=== PATIENT | female | born 1965 | race Caucasian/White ===

== ENCOUNTER 2023-05-12 18:50 | Inpatient (IN) | payer OTHER, SELFPAY ==
--- NOTE | ~2023-05-12 | CT_ITS ---
EXAMINATION: CT ABDOMEN AND PELVIS WITH CONTRAST CLINICAL INFORMATION: Colitis. COMPARISON: None available. TECHNIQUE: Multidetector volumetric images were obtained from the superior aspect of the liver through the pubic symphysis following administration 85 mL of Omnipaque 350 intravenous contrast. Sagittal and coronal reformatted images were obtained on the technologist's workstation. Oral contrast: No This CT examination was performed using dose optimization techniques as appropriate, variously including the following: *Automated exposure control *Adjustment of mA and/or kV according to patient size (this includes techniques or standardized protocols for targeted exams where dose is matched to indication/reason for exam; i.e. extremities or head) *Use of iterative reconstruction technique DLP: 552 mGy-cm FINDINGS: LUNG BASES: There is bibasilar atelectasis or scarring. Heart size is normal. LIVER, GALLBLADDER, AND BILIARY TREE: The liver is normal in size, shape, and attenuation. No focal hepatic lesion or biliary ductal dilatation is present. The gallbladder is unremarkable with no evidence of radiopaque gallstones, gallbladder wall thickening, or obvious pericholecystic inflammatory changes. PANCREAS: Unremarkable. SPLEEN: Unremarkable. ADRENAL GLANDS: Unremarkable. KIDNEYS AND URETERS: The kidneys are normal in size, shape, and attenuation. No hydronephrosis, hydroureter, or calculi seen. No perinephric stranding. BLADDER: Unremarkable. GASTROINTESTINAL TRACT: There is diffuse mural thickening involving the entire sigmoid, distal descending colon and rectum without pericolic fat stranding. Oral contrast opacified the rest of the colon and the small bowel loops appear normal caliber. Appendix is normal caliber. ABDOMINAL WALL: No significant hernia is appreciated. LYMPH NODES: Normal. VASCULAR: There is mild atherosclerotic calcification of abdominal aorta without aneurysmal dilatation. The aortic arch branches are widely patent.. PELVIC VISCERA: Unremarkable. OSSEOUS STRUCTURES: Unremarkable. CT/CT abdomen pelvis w IV con IMPRESSION: Diffuse mural thickening involving distal descending, sigmoid colon and the rectum suggestive of colitis. Fleischner guidelines were followed.
--- NOTE | ~2023-05-12 | CT_ITS ---
EXAMINATION: CT ABDOMEN AND PELVIS WITH CONTRAST CLINICAL INFORMATION: ABD pain N/V bright red blood COMPARISON: None available. TECHNIQUE: Multidetector volumetric imaging was performed of the abdomen and pelvis after the IV administration of 85 mL of Omnipaque 350 intravenous contrast. Imaging repeated after [address] abdomen and pelvis. Sagittal and coronal reformatted images were obtained on the technologist's workstation. This CT examination was performed using dose optimization techniques as appropriate, variously including the following: *Automated exposure control *Adjustment of mA and/or kV according to patient size (this includes techniques or standardized protocols for targeted exams where dose is matched to indication/reason for exam; i.e. extremities or head) *Use of iterative reconstruction technique DLP: 1019 mGy-cm FINDINGS: LUNG BASES: The visualized lung bases are unremarkable. LIVER, GALLBLADDER, AND BILIARY TREE: The liver is normal in size, shape, and attenuation. No focal hepatic lesion or biliary ductal dilatation is present. Gallbladder not visualized. No bile duct dilatation. PANCREAS: Unremarkable SPLEEN: Unremarkable ADRENAL GLANDS: Unremarkable KIDNEYS AND URETERS: The kidneys are normal in size, shape, and attenuation. No hydronephrosis, hydroureter, or calculi seen. No perinephric stranding. BLADDER: Unremarkable GASTROINTESTINAL TRACT: There is submucosal thickening throughout the colon. This is most significant at rectosigmoid colon. These are nonspecific colitis. No edema around the colon. No bowel obstruction. Small volume of stool in right colon. The appendix is normal. Small bowel loops are normal. Stomach is normal. No hiatal hernia. No extravasation of contrast evident into the bowel lumen to indicate location of a gastrointestinal hemorrhage. ABDOMINAL WALL: No significant hernia is appreciated. LYMPH NODES: Normal VASCULAR: Atherosclerotic vascular calcifications of aorta and iliac arteries. There is no aneurysm. PELVIC VISCERA: Status post hysterectomy. OSSEOUS STRUCTURES: Unremarkable CT/CT gi bleed abd pel wo/w IVcon IMPRESSION: Diffuse submucosal thickening of the colon consistent with nonspecific colitis. Side of the gastrointestinal hemorrhage is not defined by this exam. Fleischner guidelines were followed.
[2023-05-12 19:31] VITALS: BP 149/82; PULSE 118; RESP 18; TEMP 36.9; O2SAT 98; BMI 26.5
--- NOTE | 2023-05-12 19:31 | ED_ITS ---
HPI - General Adult General Chief complaint: Abdominal Pain Stated complaint: vomiting,bloody stools Time Seen by Provider: 05/12/23 21:18 Source: patient Mode of arrival: ambulatory Limitations: no limitations History of Present Illness HPI narrative: Patient is a 57-year-old female who presents emergency department for diffuse lower abdominal pain, nausea with bilious vomiting times multiple episodes today, in addition to bright red blood per rectum with clots, chills. Denies any history of rectal bleeding. Denies eating out at any restaurants or any abnormal foods. Denies any known sick contacts. Denies fevers, dizziness, headache, neck pain, chest pain, shortness of breath, dysuria. Related Data Home Medications Medication Instructions Recorded Confirmed albuterol sulfate 90 mcg/actuation 2 puff inhalation QID PRN Wheezing 05/13/23 05/13/23 aerosol inhaler aspirin 81 mg tablet,delayed 81 mg PO DAILY 05/13/23 05/13/23 release atorvastatin 10 mg tablet 10 mg PO BEDTIME 05/13/23 05/13/23 empagliflozin 25 mg tablet 25 mg PO DAILY 05/13/23 05/13/23 (Jardiance) estradiol 1 mg tablet 1 mg PO BID 05/13/23 05/13/23 gabapentin 300 mg capsule 300 mg PO TID 05/13/23 05/13/23 insulin glargine 100 40 unit subcut DAILY 05/13/23 05/13/23 unit-lixisenatide 33 mcg/mL subcutaneous pen (Soliqua 100/33) levothyroxine 112 mcg tablet 112 mcg PO DAILY 05/13/23 05/13/23 multivitamin 1 tab PO DAILY 05/13/23 05/13/23 omeprazole 40 mg capsule,delayed 40 mg PO DAILY 05/13/23 05/13/23 release Allergies Allergy/AdvReac Type Severity Reaction Status Date / Time acetaminophen [From PERCOCET] Allergy Severe VOMITING Verified 05/12/23 19:36 codeine [Codeine] Allergy Mild HYPERVENTIL Verified 05/12/23 19:36 ATE meperidine [From Demerol] Allergy Mild VOMITING Verified 05/12/23 19:36 AND FEVER morphine [Morphine] Allergy Mild VOMITING,DE Verified 05/12/23 19:36 LUSSONAL lisinopril Allergy Dizziness Verified 05/12/23 19:36 oxycodone [OXYCODONE] AdvReac Mild NAUSEA & Verified 05/12/23 19:36 VOMITING From PERCOCET Allergy Severe VOMITING Uncoded 05/25/20 14:37 Percodan Allergy Unknown Vomiting Uncoded 05/12/23 19:36 Review of Systems 2 Review of Systems: Constitutional : No Weight loss, No Fever, positive Chills ENT/Mouth :? No sore throat, No Rhinorrhea Eyes: No Swelling, No Redness Cardiovascular : No Chest Pain, No SOB, No Edema Respiratory : No Cough, No Sputum, No Wheezing Gastrointestinal : Positive Nausea, Positive Vomiting, positive Diarrhea, positive abdominal pain, positive Hematochezia, No Melena Genitourinary : No Dysuria, No Urinary Frequency, No Hematuria, No Urgency? Musculoskeletal : No joint pain, No Myalgias, No Joint Swelling Skin : No Skin Lesions, No rash Neuro : No Weakness, No Numbness, No Dizziness, No Headache Psych : No Anxiety/Panic, No Depression Heme/Lymph: No Bruising, No Lymphadenopathy Endocrine : No Polyuria, No Polydipsia Yes all other systems are reviewed and are negative [facility] Past Medical History Attestation statement: The following information was validated with the patient. Source: old records reviewed Medical History Hypothyroidism Social History Social History Household Members: Spouse Housing: Apartment Do you presently have visiting nurse or other home services: No Alcohol intake: never Patient Tobacco Use Status: Former Tobacco user service: No Physical Exam ED Vital Signs: Vital Signs - 24 hr 05/12/23 19:31 05/12/23 21:19 Temperature 98.4 F 98.4 F Pulse Rate 118 H 115 H Respiratory Rate 18 20 Blood Pressure 149/82 H 136/73 Pulse Oximetry 98 96 Oxygen Delivery Method Room Air Room Air BMI result Body Mass Index 26.5 Appearance: Alert.?Oriented to person, place and time. No acute distress.?Normal affect. Eyes: Pupils equal, round and reactive to light.? ENT: Pharynx normal.?? Neck: Normal inspection.? Neck supple.?? CVS: Heart sounds normal. Normal heart rate and rhythm.? Pulses normal.?? Respiratory: No respiratory distress.? Lung sounds clear to auscultation bilaterally?? Abdomen: Soft with diffuse lower abdominal tenderness upon palpation, no rebound tenderness, no rigidity, no guarding. Hypoactive bowel sounds. No pulsatile mass.?? Skin: Skin warm and dry.? Normal skin color.? Extremities: No lower extremity edema.? Neuro: Moves all extremities spontaneously. Sensation intact bilaterally. CN II- XII intact. No focal neuro deficits. Ambulates with normal steady gait. Course Course Course Narrative: This is a rapid medical exam: Additional HPI, ROS, PE not included below will be deferred to primary provider. Patient is a 57-year-old female with history of T2DM, HTN, gastritis, H. pylori, hepatic steatosis, tubular adenoma presenting to the emergency department with complaint of bright red blood clots rectally as well as vomiting. Denies hematemesis. States felt fine upon waking this morning, symptoms began around 10 am. Reports pain to entire abdomen, states it feels like I'm in labor. Denies prior similar episodes. Denies fevers. Did not take any medications today due to vomiting. Denies any urinary symptoms. Plan: labs including type and screen, Reevaluation(s) Reevaluation #1: Occult stool is positive. CT revealing a colitis without identified site of gastrointestinal hemorrhage. Infection suspected, ordered Levaquin and Flagyl IV. She remains with significant ABD pain, unable to tolerate oral intake, tachycardic, will trial additional dose of fentanyl at this time. She reports that she had a colonoscopy/endoscopy 2-3 years ago which only detected H pylori and polyps. She states that her cousin was just diagnosed with ulcerative colitis 6 months ago. Accepted for admission to medicine service, Dr. Matthew Time: 00:40 Medications Administered Generic Name Dose Route Start Last Admin Trade Name Freq PRN Reason Stop Dose Admin Atorvastatin Calcium 10 mg 05/13/23 21:00 05/13/23 19:57 Atorvastatin Calcium 10 Mg Tablet PO 10 mg BEDTIME ABHAY Administration Empagliflozin 25 mg 05/13/23 11:30 05/13/23 12:08 Empagliflozin 25 Mg Tablet PO 25 mg DAILY ABHAY Administration Gabapentin 300 mg 05/13/23 15:00 05/13/23 19:57 Gabapentin 300 Mg Capsule PO 300 mg TID ABHAY Administration Hydromorphone HCl 0.25 mg 05/13/23 01:48 05/14/23 01:18 Hydromorphone Hcl 0.5 Mg/0.5 Ml Syringe IVPUSH 0.25 mg Q4H PRN Administration Pain, Severe (Pain Scale 7-10) Protocol Sodium Chloride 1,000 mls @ 125 mls/hr 05/13/23 01:45 05/14/23 01:30 Ns IVCONT Not Given .Q8H ABHAY Metronidazole 500 mg in 100 mls @ 100 mls/hr 05/13/23 08:00 05/14/23 01:27 Flagyl IV Infused Q8H [facility] Infusion Ceftriaxone Sodium 1 gm/ 50 mls @ 100 mls/hr 05/13/23 02:00 05/14/23 00:16 Sodium Chloride IV Infused 2200 [facility] Infusion Insulin Human Lispro 0 unit 05/13/23 16:30 05/13/23 21:49 Insulin Lispro 100 Unit/Ml 3 Ml Vial SUBCUT 2 unit QIDACHS [facility] Administration Protocol Omeprazole 40 mg 05/13/23 11:30 05/13/23 12:08 Omeprazole 40 Mg Capsule. PO 40 mg DAILY@0630 [facility] Administration Ondansetron HCl 4 mg 05/13/23 01:43 05/13/23 18:50 Ondansetron Hcl 4 Mg/2 Ml Vial IVPUSH 4 mg Q8H PRN Administration Nausea and Vomiting Sodium Chloride 3 ml 05/13/23 08:00 05/13/23 21:54 0.9 % Sodium Chloride Flush 3 Ml Syringe IVFLUSH 3 ml QSHIFT [facility] Administration Discontinued Medications Generic Name Dose Route Start Last Admin Trade Name Freq PRN Reason Stop Dose Admin Fentanyl 50 mcg 05/12/23 21:59 05/12/23 22:24 Fentanyl Citrate/Pf 100 Mcg/2 Ml Vial IVPUSH 05/12/23 22:00 50 mcg ONCE ONE Administration Protocol Fentanyl 50 mcg 05/13/23 00:49 05/13/23 00:59 Fentanyl Citrate/Pf 100 Mcg/2 Ml Vial IVPUSH 05/13/23 00:50 50 mcg ONCE ONE Administration Protocol Sodium Chloride 1,000 mls @ 999 mls/hr 05/12/23 22:00 05/12/23 23:50 Ns IV 05/12/23 23:00 Infused .Q1H1M ABHAY Infusion Levofloxacin 750 mg in 150 mls @ 100 mls/hr 05/13/23 01:01 05/13/23 04:15 Levaquin IV 05/13/23 02:30 Infused ONCE ONE Infusion Metronidazole 500 mg in 100 mls @ 100 mls/hr 05/13/23 01:01 05/13/23 02:41 Flagyl IV 05/13/23 02:00 Infused ONCE ONE Infusion Sodium Chloride 1,000 mls @ 999 mls/hr 05/13/23 01:45 05/13/23 05:46 Ns IV 05/13/23 02:45 Infused .Q1H1M ABHAY Infusion Promethazine HCl 6.25 mg/ 50.25 mls @ 201 mls/hr 05/13/23 04:45 05/13/23 05:32 Sodium Chloride IV 05/13/23 04:46 Infused ONCE ONE Infusion Iohexol 85 ml 05/12/23 23:23 05/12/23 23:24 Iohexol 350 Mg/Ml 100 Ml Infus..Btl IV 05/12/23 23:24 85 ml ONCE ONE Administration Ondansetron HCl 4 mg 05/12/23 21:57 05/12/23 22:24 Ondansetron Hcl 4 Mg/2 Ml Vial IVPUSH 05/12/23 21:58 4 mg ONCE ONE Administration Medical Decision Making Medical Decision Making [facility] Narrative: Patient is a 57-year-old female with hx of T2DM, HTN, gastritis, H. pylori, hepatic steatosis, tubular adenoma who presents emergency department for evaluation of abdominal pain with nausea vomiting and bright red blood per rectum. She has notable tenderness upon palpation of the lower abdomen, she is tachycardic, and appears fatigued. Will obtain CBC to evaluate for leukocytosis/ anemia, CMP and lipase to evaluate for abnormal electrolytes /abnormal renal function/ abnormal hepatic/biliary function, EKG and troponin to evaluate for ischemia/ACS. CT of the abdomen and pelvis for further evaluation of GI bleed, diverticulitis, colitis, occult stool and Urinalysis. Rectal examination reveals an external hemorrhoid though not actively bleeding, no fissures. Will trial 1 L normal saline IV, Zofran IV for nausea, fentanyl IV for pain. Differential Diagnosis Differential Diagnoses: The differential diagnosis associated with the presentation includes (GI bleed, diverticulitis, colitis, gastroenteritis,) Lab Data [facility] Lab Attestation statement: I reviewed the patient's lab results. (CBC reveals leukocytosis with left shift, overall unremarkable CMP, lipase within normal limits, hCG negative.) 05/12/23 19:49 05/12/23 19:49 Labs: Lab Results 05/12/23 05/12/23 05/12/23 Range/Units 19:49 19:49 19:49 WBC 14.6 H (4.8-10.8) X10*3/uL RBC 4.94 (4.20-5.50) X10*6/uL Hgb 16.8 H (12.0-16.0) g/dl Hct 48.7 H (37.0-47.0) % MCV 98.6 H (80.0-98.0) fL MCH 34.0 H (27.0-33.0) pg MCHC 34.5 (31.0-35.0) g/dl RDW 12.4 (11.0-16.0) % Plt Count 232 (160-400) X10*3/uL MPV 10.9 (9.4-12.3) fL Immature Gran % (Auto) 0.9 H (0.0-0.4) % Neut % (Auto) 91.5 H (45-73) % Lymph % (Auto) 4.9 L (20-40) % Antelope % (Auto) 2.5 (2-11) % Eos % (Auto) 0.0 (0-4) % Baso % (Auto) 0.2 (0-2) % Lymph # (Auto) 0.7 L (1.2-4.9) X10*3/uL Antelope # (Auto) 0.4 (0.1-1.2) X10*3/uL Eos # (Auto) 0.0 (0.0-0.4) X10*3/uL Baso # (Auto) 0.0 (0.0-0.2) X10*3/uL Abs Immat Gran (auto) 0.13 H (0.00-0.03) X10*3/uL Absolute Neuts (auto) 13.3 H (2.0-8.3) x10*3/uL Absolute Nucleated RBC 0.000 (0.0-0.012) X10*3/uL Nucleated RBC % (auto) 0.0 (0.0-0.2) /100WBC Smear Tech's Comments VERIFIED ESR (0-20) MM/HR PT 10.7 L (11.1-13.3) SEC INR 0.9 (0.9-1.1) Sodium 139 (135-145) mmol/L Potassium 4.8 (3.3-5.1) mmol/L Chloride 104 (96-108) mmol/L Carbon Dioxide 23 (22-29) mmol/L Anion Gap 17 (12-20) BUN 18 H (9-16) mg/dL Creatinine 0.88 (0.5-1.4) mg/dL Estim Creat Clear Calc 62.7 Estimated GFR > 60 Random Glucose 239 H (60-115) mg/dL Calcium 10.0 (8.4-10.2) mg/dL Total Bilirubin 1.1 H (0.0-1.0) mg/dL AST 21 (5-31) U/L ALT 27 (0-31) U/L Alkaline Phosphatase 61 (39-117) U/L C-Reactive Protein 0.91 H (< or = 0.50) mg/dL Total Protein 7.8 (6.5-8.0) g/dL Albumin 4.7 (3.5-5.0) g/dL Lipase 8 (8-78) U/L Beta HCG, Quant < 2 mIU/mL Stool Occult Blood (NEGATIVE) Stl C. cayetanensis PCR (Not Detect.) Stool Rotavirus A PCR (Not Detect.) Stl Adenov F 40/41 PCR (Not Detect.) Stool Astrovirus (PCR) (Not Detect.) Stool Campylobacter PCR (Not Detect.) Stool Cryptosporidium PCR (Not Detect.) Stl Sh Tox Pr E STEC PCR (Not Detect.) Stool E coli O157 PCR (Not Detect.) Stl Enterotoxigenic E PCR (Not Detect.) Stool EPEC (PCR) (Not Detect.) Stool EAEC (PCR) (Not Detect.) Stl E. histolytica PCR (Not Detect.) Stool Giardia Lamblia PCR (Not Detect.) Stl P. shigelloides PCR (Not Detect.) Stool Salmonella PCR (Not Detect.) Stool Sapovirus (PCR) (Not Detect.) Stl Shigella/EIEC PCR (Not Detect.) St Y.enterocolitica PCR (Not Detect.) Stool Vibrio (PCR) (Not Detect.) Stl Vibrio cholerae PCR (Not Detect.) Stl Norovirus GI/GII PCR (Not Detect.) Blood Type Antibody Screen 05/12/23 05/12/23 05/12/23 Range/Units 19:49 19:49 21:59 WBC (4.8-10.8) X10*3/uL RBC (4.20-5.50) X10*6/uL Hgb (12.0-16.0) g/dl Hct (37.0-47.0) % MCV (80.0-98.0) fL MCH (27.0-33.0) pg MCHC (31.0-35.0) g/dl RDW (11.0-16.0) % Plt Count (160-400) X10*3/uL MPV (9.4-12.3) fL Immature Gran % (Auto) (0.0-0.4) % Neut % (Auto) (45-73) % Lymph % (Auto) (20-40) % Antelope % (Auto) (2-11) % Eos % (Auto) (0-4) % Baso % (Auto) (0-2) % Lymph # (Auto) (1.2-4.9) X10*3/uL Antelope # (Auto) (0.1-1.2) X10*3/uL Eos # (Auto) (0.0-0.4) X10*3/uL Baso # (Auto) (0.0-0.2) X10*3/uL Abs Immat Gran (auto) (0.00-0.03) X10*3/uL Absolute Neuts (auto) (2.0-8.3) x10*3/uL Absolute Nucleated RBC (0.0-0.012) X10*3/uL Nucleated RBC % (auto) (0.0-0.2) /100WBC Smear Tech's Comments ESR 4 (0-20) MM/HR PT (11.1-13.3) SEC INR (0.9-1.1) Sodium (135-145) mmol/L Potassium (3.3-5.1) mmol/L Chloride (96-108) mmol/L Carbon Dioxide (22-29) mmol/L Anion Gap (12-20) BUN (9-16) mg/dL Creatinine (0.5-1.4) mg/dL Estim Creat Clear Calc Estimated GFR Random Glucose (60-115) mg/dL Calcium (8.4-10.2) mg/dL Total Bilirubin (0.0-1.0) mg/dL AST (5-31) U/L ALT (0-31) U/L Alkaline Phosphatase (39-117) U/L C-Reactive Protein (< or = 0.50) mg/dL Total Protein (6.5-8.0) g/dL Albumin (3.5-5.0) g/dL Lipase (8-78) U/L Beta HCG, Quant mIU/mL Stool Occult Blood POSITIVE (NEGATIVE) Stl C. cayetanensis PCR (Not Detect.) Stool Rotavirus A PCR (Not Detect.) Stl Adenov F 40/41 PCR (Not Detect.) Stool Astrovirus (PCR) (Not Detect.) Stool Campylobacter PCR (Not Detect.) Stool Cryptosporidium PCR (Not Detect.) Stl Sh Tox Pr E STEC PCR (Not Detect.) Stool E coli O157 PCR (Not Detect.) Stl Enterotoxigenic E PCR (Not Detect.) Stool EPEC (PCR) (Not Detect.) Stool EAEC (PCR) (Not Detect.) Stl E. histolytica PCR (Not Detect.) Stool Giardia Lamblia PCR (Not Detect.) Stl P. shigelloides PCR (Not Detect.) Stool Salmonella PCR (Not Detect.) Stool Sapovirus (PCR) (Not Detect.) Stl Shigella/EIEC PCR (Not Detect.) St Y.enterocolitica PCR (Not Detect.) Stool Vibrio (PCR) (Not Detect.) Stl Vibrio cholerae PCR (Not Detect.) Stl Norovirus GI/GII PCR (Not Detect.) Blood Type O Positive Antibody Screen NEGATIVE 05/12/23 Range/Units 21:59 WBC (4.8-10.8) X10*3/uL RBC (4.20-5.50) X10*6/uL Hgb (12.0-16.0) g/dl Hct (37.0-47.0) % MCV (80.0-98.0) fL MCH (27.0-33.0) pg MCHC (31.0-35.0) g/dl RDW (11.0-16.0) % Plt Count (160-400) X10*3/uL MPV (9.4-12.3) fL Immature Gran % (Auto) (0.0-0.4) % Neut % (Auto) (45-73) % Lymph % (Auto) (20-40) % Antelope % (Auto) (2-11) % Eos % (Auto) (0-4) % Baso % (Auto) (0-2) % Lymph # (Auto) (1.2-4.9) X10*3/uL Antelope # (Auto) (0.1-1.2) X10*3/uL Eos # (Auto) (0.0-0.4) X10*3/uL Baso # (Auto) (0.0-0.2) X10*3/uL Abs Immat Gran (auto) (0.00-0.03) X10*3/uL Absolute Neuts (auto) (2.0-8.3) x10*3/uL Absolute Nucleated RBC (0.0-0.012) X10*3/uL Nucleated RBC % (auto) (0.0-0.2) /100WBC Smear Tech's Comments ESR (0-20) MM/HR PT (11.1-13.3) SEC INR (0.9-1.1) Sodium (135-145) mmol/L Potassium (3.3-5.1) mmol/L Chloride (96-108) mmol/L Carbon Dioxide (22-29) mmol/L Anion Gap (12-20) BUN (9-16) mg/dL Creatinine (0.5-1.4) mg/dL Estim Creat Clear Calc Estimated GFR Random Glucose (60-115) mg/dL Calcium (8.4-10.2) mg/dL Total Bilirubin (0.0-1.0) mg/dL AST (5-31) U/L ALT (0-31) U/L Alkaline Phosphatase (39-117) U/L C-Reactive Protein (< or = 0.50) mg/dL Total Protein (6.5-8.0) g/dL Albumin (3.5-5.0) g/dL Lipase (8-78) U/L Beta HCG, Quant mIU/mL Stool Occult Blood (NEGATIVE) Stl C. cayetanensis PCR Not Detected (Not Detect.) Stool Rotavirus A PCR Not Detected (Not Detect.) Stl Adenov F 40/41 PCR Not Detected (Not Detect.) Stool Astrovirus (PCR) Not Detected (Not Detect.) Stool Campylobacter PCR Not Detected (Not Detect.) Stool Cryptosporidium PCR Not Detected (Not Detect.) Stl Sh Tox Pr E STEC PCR Not Detected (Not Detect.) Stool E coli O157 PCR Not applicable (Not Detect.) Stl Enterotoxigenic E PCR Not Detected (Not Detect.) Stool EPEC (PCR) Detected A (Not Detect.) Stool EAEC (PCR) Not Detected (Not Detect.) Stl E. histolytica PCR Not Detected (Not Detect.) Stool Giardia Lamblia PCR Not Detected (Not Detect.) Stl P. shigelloides PCR Not Detected (Not Detect.) Stool Salmonella PCR Not Detected (Not Detect.) Stool Sapovirus (PCR) Not Detected (Not Detect.) Stl Shigella/EIEC PCR Not Detected (Not Detect.) St Y.enterocolitica PCR Not Detected (Not Detect.) Stool Vibrio (PCR) Not Detected (Not Detect.) Stl Vibrio cholerae PCR Not Detected (Not Detect.) Stl Norovirus GI/GII PCR Not Detected (Not Detect.) Blood Type Antibody Screen Independent Interpretation I performed an independent interpretation of an: EKG Interpretation: Rate: 103 Rhythm:? Sinus tachycardia Normal P waves.? Normal LAURA.?? Normal QRS complex.?? ST T wave :??No ST elevation, no ST depression, no T-wave inversion qTC: 484 prior studies:? January 2011 The study has been interpreted contemporaneously by me. Radiology Impression Discussion of test interpretation with radiology: I have reviewed the radiologist's reading. Discharge Plan Discharge Clinical Impression: Acute colitis, GIB (gastrointestinal bleeding) Patient Disposition: Admitted As Inpatient Interventions: Admission Worksheet (ED) Last Done: 05/13/23 18:18 Discharge Date/Time: 05/13/23 18:20
--- NOTE | 2023-05-12 19:38 | ECG_ITS ---
Test Reason : tachy Blood Pressure : / mmHG Vent. Rate : 103 BPM Atrial Rate : 103 BPM P-R Int : 150 ms QRS Dur : 084 ms QT Int : 370 ms P-R-T Axes : 077 005 053 degrees QTc Int : 484 ms Sinus tachycardia Otherwise normal ECG When compared with ECG of 23-JAN-2011 17:38, Heart rate has increased Referred By: Krystin Beatty Electronically Signed By:AUGUSTO DELUCA
[2023-05-12 19:57] LABS: Basophils Percent Auto 0.2 % (0-2); Hematocrit 48.7 % (37.0-47.0); Hemoglobin 16.8 g/dl (12.0-16.0); Imm Gran Abs Auto 0.13 X10*3/uL (0.00-0.03); Imm Gran Pct Auto 0.9 % (0.0-0.4); Lymphocytes Absolute Auto 0.7 X10*3/uL (1.2-4.9); Lymphocytes Percent Auto 4.9 % (20-40); MANUAL DIFF FLAG SCAN; Mean Corpuscular HGB Conc 34.5 g/dl (31.0-35.0); Mean Corpuscular Volume 98.6 fL (80.0-98.0); Mean Platelet Volume 10.9 fL (9.4-12.3); Monocytes Absolute Auto 0.4 X10*3/uL (0.1-1.2); Monocytes Percent Auto 2.5 % (2-11); Neutrophils Absolute Auto 13.3 x10*3/uL (2.0-8.3); Neutrophils Percent Auto 91.5 % (45-73); Platelet Count 232 X10*3/uL (160-400); Red Blood Count 4.94 X10*6/uL (4.20-5.50); Red Cell Distribution Width 12.4 % (11.0-16.0); SCAN SMEAR FLAG 1; White Blood Count 14.6 X10*3/uL (4.8-10.8)
[2023-05-12 20:04] LABS: INTERNATIONAL NORM RATIO 0.9 (0.9-1.1); Prothrombin Time 10.7 SEC (11.1-13.3)
[2023-05-12 20:17] LABS: Alanine Aminotransferase 27 U/L (0-31); Albumin Level 4.7 g/dL (3.5-5.0); Alkaline Phosphatase 61 U/L (39-117); Anion Gap 17 (12-20); Aspartate Amino Transferase 21 U/L (5-31); Bilirubin Total 1.1 mg/dL (0.0-1.0); Blood Urea Nitrogen 18 mg/dL (9-16); Carbon Dioxide 23 mmol/L (22-29); Chloride 104 mmol/L (96-108); Creatinine Clr Calc Pharmacy 62.7; Estimated Glomerular Filt Rate > 60; Glucose Random 239 mg/dL (60-115); Lipase 8 U/L (8-78); Potassium 4.8 mmol/L (3.3-5.1); Sodium 139 mmol/L (135-145); Total Protein 7.8 g/dL (6.5-8.0)
[2023-05-12 20:19] LABS: HCG Quantitative < 2 mIU/mL
[2023-05-12 20:32] LABS: SLIDE REVIEW VERIFIED
[2023-05-12 21:19] VITALS: BP 136/73; PULSE 115; RESP 20; TEMP 36.9; O2SAT 96
[2023-05-12 22:12] LABS: OBS Int Ctl Valid YES; OBS1 POSITIVE (NEGATIVE)
[2023-05-12] MEDS: ondansetron HCL 4 MG/2 ML VIAL IVPUSH (22:24)
[2023-05-12] MEDS: fentaNYL citrate/PF 100 MCG/2 ML VIAL 50 MCG IVPUSH (22:24)
[2023-05-12] MEDS: 0.9 % Sodium Chloride 1,000 ML 999 ML IV (22:27)
[2023-05-12] MEDS: iohexoL 350 MG/ML 100 ML INFUS..BTL 85 ML IV (23:24)
[2023-05-13] MEDS: fentaNYL citrate/PF 100 MCG/2 ML VIAL 50 MCG IVPUSH (00:59)
[2023-05-13] MEDS: metroNIDAZOLE/NS 500 MG/100 ML PIGGYBACK 100 MG IV ×3 (01:36→16:34)
[2023-05-13 01:45] LABS: C Reactive Protein 0.91 mg/dL (< or = 0.50)
[2023-05-13 02:06] LABS: Erythrocyte Sedimentation Rate 4 MM/HR (0-20)
--- NOTE | 2023-05-13 02:18 | P.HPHOSP_ITS ---
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 The patient reports feeling well this morning as she woke up and had coffee before going to the bathroom for BM but she did not leave for couple of hours as she had multiple soft bowel movements associated with abdominal pain at the end, chills and nausea. She vomited few times but manily has nausea. in the afternoon she noticed blood with the stool (she was not looking before) so she decided to come to the hospital. Denies any rash, fever, SOB, palpitations, chest pain or urinary symptoms. Had dinner with her last night, he has no symptoms. no food from outside or reheated meals. No Previous history of similar incidents. Her cousin (she calls her mother) has Ulcerative colitis. Her mother of liver cancer. In ED, a CT scan showed non-specific colitis with no source of bleeding identified as she is occult positive. with dehydration picture with high WBCs and RBCs. Treated with IVF and Abx and admitted for further eval. Review of Systems Review of Systems: reproting subjective fever, chills No chest pain, palpitation No shortness of breath or coughing reporting generalized abdominal pain, with nausea and bloody bowel motions No urinary symptoms No any rash or wounds PMFSH Medical History Hypothyroidism Social History Alcohol intake: never Patient Tobacco Use Status: Never used Tobacco Meds Allergies Allergy/AdvReac Type Severity Reaction Status Date / Time acetaminophen [From PERCOCET] Allergy Severe VOMITING Verified 05/12/23 19:36 codeine [Codeine] Allergy Mild HYPERVENTIL Verified 05/12/23 19:36 ATE meperidine [From Demerol] Allergy Mild VOMITING Verified 05/12/23 19:36 AND FEVER morphine [Morphine] Allergy Mild VOMITING,DE Verified 05/12/23 19:36 LUSSONAL lisinopril Allergy Dizziness Verified 05/12/23 19:36 oxycodone [OXYCODONE] AdvReac Mild NAUSEA & Verified 05/12/23 19:36 VOMITING From PERCOCET Allergy Severe VOMITING Uncoded 05/25/20 14:37 Percodan Allergy Unknown Vomiting Uncoded 05/12/23 19:36 Active Medications: Current Medications Hydromorphone HCl (Hydromorphone Hcl 0.5 Mg/0.5 Ml Syringe) 0.25 mg IVPUSH Q4H PRN; Protocol PRN Reason: Pain, Severe (Pain Scale 7-10) Levofloxacin (Levaquin) 750 mg in 150 mls @ 100 mls/hr IV ONCE ONE Stop: 05/13/23 02:30 Sodium Chloride (Ns) 1,000 mls @ 999 mls/hr IV .Q1H1M ABHAY Stop: 05/13/23 02:45 Sodium Chloride (Ns) 1,000 mls @ 125 mls/hr IVCONT .Q8H [facility] Metronidazole (Flagyl) 500 mg in 100 mls @ 100 mls/hr IV Q8H [facility] Ceftriaxone Sodium 1 gm/ (Sodium Chloride) 50 mls @ 100 mls/hr IV 2200 ABHAY Ondansetron HCl (Ondansetron Hcl 4 Mg/2 Ml Vial) 4 mg IVPUSH Q8H PRN PRN Reason: Nausea and Vomiting Sodium Chloride (0.9 % Sodium Chloride Flush 3 Ml Syringe) 3 ml IVFLUSH QSHIFT ABHAY Physical Exam Vital Signs and Narrative: Vital Signs: Last Vital Signs Temp 98.4 F 05/12/23 21:19 Pulse 115 H 05/12/23 21:19 Resp 20 05/12/23 21:19 BP 136/73 05/12/23 21:19 Pulse Ox 96 05/12/23 21:19 O2 Del Method Room Air 05/12/23 21:19 BMI result Body Mass Index 26.5 Const: Other: Constitutional : Awake, interactive, not in distress Neck : Normal inspection, Supple Cardiovascular : RRR, no JVP, no lower extremity edema Respiratory : good bilateral air entry, no crackles, wheezes or rhonchi Gastrointestinal: soft, lax, Normal bowel sounds, generalized tenderness with palpation, no surgical signs appreciated Skin : Warm, Dry Neurological : Alert & oriented x3, No focal deficit Results Labs 05/12/23 19:49 05/12/23 19:49 Labs: Laboratory Results - last 24 hr 05/12/23 05/12/23 05/12/23 19:49 19:49 19:49 MCV 98.6 H MCH 34.0 H MCHC 34.5 RDW 12.4 Plt Count 232 MPV 10.9 Immature Gran % (Auto) 0.9 H Neut % (Auto) 91.5 H Lymph % (Auto) 4.9 L [place] % (Auto) 2.5 Eos % (Auto) 0.0 Baso % (Auto) 0.2 Lymph # (Auto) 0.7 L [place] # (Auto) 0.4 Eos # (Auto) 0.0 Baso # (Auto) 0.0 Abs Immat Gran (auto) 0.13 H Absolute Neuts (auto) 13.3 H Absolute Nucleated RBC 0.000 Nucleated RBC % (auto) 0.0 Smear Tech's Comments VERIFIED ESR PT 10.7 L INR 0.9 Anion Gap 17 Estim Creat Clear Calc 62.7 Estimated GFR > 60 Random Glucose 239 H Calcium 10.0 Total Bilirubin 1.1 H AST 21 ALT 27 Alkaline Phosphatase 61 C-Reactive Protein 0.91 H Total Protein 7.8 Albumin 4.7 Lipase 8 Beta HCG, Quant < 2 Stool Occult Blood Blood Type Antibody Screen 05/12/23 05/12/23 05/12/23 19:49 19:49 21:59 MCV MCH MCHC RDW Plt Count MPV Immature Gran % (Auto) Neut % (Auto) Lymph % (Auto) [place] % (Auto) Eos % (Auto) Baso % (Auto) Lymph # (Auto) [place] # (Auto) Eos # (Auto) Baso # (Auto) Abs Immat Gran (auto) Absolute Neuts (auto) Absolute Nucleated RBC Nucleated RBC % (auto) Smear Tech's Comments ESR 4 PT INR Anion Gap Estim Creat Clear Calc Estimated GFR Random Glucose Calcium Total Bilirubin AST ALT Alkaline Phosphatase C-Reactive Protein Total Protein Albumin Lipase Beta HCG, Quant Stool Occult Blood POSITIVE Blood Type O Positive Antibody Screen NEGATIVE Imaging Radiologist's Impressions: Impressions Abdomen/Pelvis CT 05/12/23 23:49 IMPRESSION: Diffuse submucosal thickening of the colon consistent with nonspecific colitis. Side of the gastrointestinal hemorrhage is not defined by this exam. Fleischner guidelines were followed. 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 Sepsis 2/2 Acute colitis, infectious vs inflammatory Leukocytosis and Tachycardia w infx normal [place] CT scan showing almost pancolitis pictures, she is female in 50s which puts her at higher risk of IBD Low ESR less suggestive of IBD though Pending stool panel IVF bolus and maintenance continue Abx of Flagyl and Ceftriaxone (dc levaquin for prolonged QTc) GIB Likely 2/2 colitis GI evaluation Keep NPO and advance diet as tolerated Hypothyroidism Restart Med when confirmed Hx Diabetes type 2 Restart home meds, SSI if needed Rest of home meds pending MED REC The patient will need 2 overnight hospital stay for treatment of colitis pending specialist evaluation Time Spent With Patient Time: Total time managing care of this patient today ____ minutes. Quality Stroke Does the patient have a stroke diagnosis?: No VTE Prior VTE?: No VTE Risk Level:: Medical - moderate - high VTE Device Contraindication: N/A - Device Ordered VTE Drug Contraindication: Treatment Not Indicated
[2023-05-13] MEDS: ondansetron HCL 4 MG/2 ML VIAL IVPUSH ×3 (02:40→18:50)
[2023-05-13] MEDS: levoFLOXacin/D5W 750 MG/150 ML PIGGYBACK 100 MG IV (02:41)
[2023-05-13 04:21] VITALS: BP 144/60; PULSE 120; RESP 17; TEMP 36.9; O2SAT 98
[2023-05-13] MEDS: cefTRIAXone sodium 1 GM in 0.9 % Sodium Chloride 50 ML IV ×2 (04:39→21:50)
[2023-05-13] MEDS: 0.9 % Sodium Chloride 1,000 ML 999 ML IV (04:41)
[2023-05-13] MEDS: HYDROmorphone HCl 0.5 MG/0.5 ML SYRINGE 0.25 MG IVPUSH ×4 (05:16→18:50)
[2023-05-13 07:12] VITALS: BP 107/69; PULSE 123; RESP 18; TEMP 36.5; O2SAT 95
[2023-05-13 07:35] LABS: Anion Gap 18 (12-20); Blood Urea Nitrogen 14 mg/dL (9-16); Calcium 8.2 mg/dL (8.4-10.2); Carbon Dioxide 11 mmol/L (22-29); Chloride 113 mmol/L (96-108); Creatinine Clr Calc Pharmacy 73.6; Estimated Glomerular Filt Rate > 60; Glucose Random 212 mg/dL (60-115); Potassium 4.2 mmol/L (3.3-5.1); Sodium 138 mmol/L (135-145)
[2023-05-13] MEDS: 0.9 % Sodium Chloride Flush 3 ML SYRINGE IVFLUSH ×2 (07:49→21:54)
--- NOTE | 2023-05-13 07:51 | PC.NURSE ---
patient resting in bed, states her nausea is coming back, otherwise comfortable. patient appears to be in no distress, VSS
--- NOTE | 2023-05-13 07:51 | PHA.MEDREC ---
Pharmacy Consult ? Medication Reconciliation Pharmacy has completed the medication reconciliation. pt insulin/glp 1 combo increased to 40 u mark
[2023-05-13] MEDS: 0.9 % Sodium Chloride 1,000 ML 125 ML IVCONT ×2 (08:16→18:51)
[2023-05-13 10:14] LABS: Adenovirus F 40/41 Not Detected (Not Detect.); Astrovirus Not Detected (Not Detect.); Campylobacter Not Detected (Not Detect.); Cryptosporidium Not Detected (Not Detect.); Cyclospora cayetanensis Not Detected (Not Detect.); E. coli EAEC Not Detected (Not Detect.); E. coli EPEC Detected (Not Detect.); E. coli ETEC Not Detected (Not Detect.); E. coli STEC Not Detected (Not Detect.); Entamoeba histolytica Not Detected (Not Detect.); Giardia lamblia Not Detected (Not Detect.); Norovirus GI/GII Not Detected (Not Detect.); Plesiomonas shigelloides Not Detected (Not Detect.); Rotavirus A Not Detected (Not Detect.); Salmonella Not Detected (Not Detect.); Sapovirus Not Detected (Not Detect.); Shigella sp./EIEC Not Detected (Not Detect.); Vibrio Not Detected (Not Detect.); Vibrio Cholerae Not Detected (Not Detect.); Yersinia enterocolitica Not Detected (Not Detect.)
[2023-05-13 10:30] LABS: CDiff Gene PCR NEGATIVE (Negative)
--- NOTE | 2023-05-13 11:24 | MHC.CM.PN ---
Pt admitted with abdominal pain. Pt lives at home with , is employed, and independent/self-care. D/C plan to return home self-care when medically cleared. Pts to transport. Offered to assist with a HCP, pt declined at this time. PCP: Delma Hull vax: x 4 pfizer
[2023-05-13 11:35] LABS: Glucose, Whole Blood 206 mg/dL (60-115)
[2023-05-13 11:39] LABS: Hematocrit 46.6 % (37.0-47.0); Hemoglobin 15.4 g/dl (12.0-16.0)
[2023-05-13 11:48] VITALS: BP 108/71; PULSE 116; RESP 19; TEMP 36.6; O2SAT 96
[2023-05-13 12:07] LABS: Appearance Urine Clear; Color Urine Yellow; Glucose Urine UA >=1000 mg/dL (Negative); Leukocyte Esterase Urine Negative (Negative); Nitrite Urine Negative (Negative); PH 5.5 (5.0-9.0); Specific Gravity - Urine >= 1.030 (1.005-1.025); UMIC TRIGGER UACC YES; Urine Blood Negative (Negative); Urine Ketones >=160 mg/dL (Negative); Urine Protein Trace mg/dL (Neg-Trace)
[2023-05-13] MEDS: Empagliflozin 25 MG TABLET PO (12:08)
[2023-05-13] MEDS: Omeprazole 40 MG CAPSULE.DR PO (12:08)
[2023-05-13 12:10] LABS: Bacteria Urine None Seen (None Seen); Hyaline Casts Urine 0-2 /LPF (0-2); RBC Urine 0-2 /HPF (0-2); Squamous Epithelial Cell Urine 0-2 /HPF (0-2); WBC Urine 0-5 /HPF (0-5)
--- NOTE | 2023-05-13 12:11 | PC.NURSE ---
patient resting in bed, appears to be in no distress, states her pain management is under control. patient allowed ice chips and sips of water with po meds
[2023-05-13] MEDS: Gabapentin 300 MG CAPSULE PO ×2 (15:05→19:57)
[2023-05-13 15:06] VITALS: RESP 18
--- NOTE | 2023-05-13 16:15 | P.PNIM_ITS ---
Subjective Subjective Date of Service: 05/13/23 Interval History: gib Review of Systems says had another episode of bleeding this morning no fevers or chills Physical Exam Vital Signs: Vital Signs: Last Vital Signs Temp 98 F 05/13/23 11:48 Pulse 116 H 05/13/23 11:48 Resp 18 05/13/23 15:06 BP 108/71 05/13/23 11:48 Pulse Ox 96 05/13/23 11:48 O2 Del Method Room Air 05/13/23 11:48 BMI result Body Mass Index 26.5 Appearance: Alert.? Oriented X3. cvs: rrr, [id number] . res: clear to auscultation ,no rhonchii or wheezing abd: soft ,nt, bs present. ext pulses present , no cyanosis neuro: axo3 , nonfocal. Objective Data Active Medications Albuterol Sulfate (Albuterol Sulfate 90 Mcg 8 Gm Inhaler) 2 puff INHALE QID PRN PRN Reason: Wheezing Atorvastatin Calcium (Atorvastatin Calcium 10 Mg Tablet) 10 mg PO BEDTIME [facility] Dextrose (Dextrose 50 % 25 Gm/50 Ml Syringe) 25 gm IVPUSH Q15M PRN; Protocol PRN Reason: per Hypoglycemia Standing Ord. Empagliflozin (Empagliflozin 25 Mg Tablet) 25 mg PO DAILY [facility] Last Admin: 05/13/23 12:08 Dose: 25 mg Documented By: ANGELIA Gabapentin (Gabapentin 300 Mg Capsule) 300 mg PO TID [facility] Last Admin: 05/13/23 15:05 Dose: 300 mg Documented By: SAMAN Glucose (Glucose Gel 15 Gm Gel..Gram.) 15 gm PO Q15M PRN; Protocol PRN Reason: per Hypoglycemia Standing Ord. Hydromorphone HCl (Hydromorphone Hcl 0.5 Mg/0.5 Ml Syringe) 0.25 mg IVPUSH Q4H PRN; Protocol PRN Reason: Pain, Severe (Pain Scale 7-10) Last Admin: 05/13/23 15:06 Dose: 0.25 mg Documented By: SAMAN Sodium Chloride (Ns) 1,000 mls @ 125 mls/hr IVCONT .Q8H [facility] Last Admin: 05/13/23 08:16 Dose: 125 mls/hr Documented By: ANGELIA Metronidazole (Flagyl) 500 mg in 100 mls @ 100 mls/hr IV Q8H [facility] Last Infusion: 05/13/23 09:22 Dose: 100 mls/hr Documented By: BRISEYDA Ceftriaxone Sodium 1 gm/ (Sodium Chloride) 50 mls @ 100 mls/hr IV 2200 [facility] Last Infusion: 05/13/23 05:18 Dose: 0 mls/hr Documented By: NANCY Insulin Human Lispro (Insulin Lispro 100 Unit/Ml 3 Ml Vial) 0 unit SUBCUT QIDACHS [facility]; Protocol Levothyroxine Sodium (Levothyroxine Sodium 112 Mcg Tablet) 112 mcg PO DAILY@0600 [facility] Multivitamins/Vitamin C (Multivitamin Tablet) 1 tab PO DAILY [facility] Omeprazole (Omeprazole 40 Mg Capsule.Dr) 40 mg PO DAILY@0630 [facility] Last Admin: 05/13/23 12:08 Dose: 40 mg Documented By: ANGELIA Ondansetron HCl (Ondansetron Hcl 4 Mg/2 Ml Vial) 4 mg IVPUSH Q8H PRN PRN Reason: Nausea and Vomiting Last Admin: 05/13/23 10:13 Dose: 4 mg Documented By: ANGELIA Sodium Chloride (0.9 % Sodium Chloride Flush 3 Ml Syringe) 3 ml IVFLUSH QSHIFT [facility] Last Admin: 05/13/23 07:49 Dose: 3 ml Documented By: ANGELIA Labs 05/13/23 11:32 05/13/23 06:42 Labs: Laboratory Results - last 24 hr 05/12/23 05/12/23 05/12/23 19:49 19:49 19:49 MCV 98.6 H MCH 34.0 H MCHC 34.5 RDW 12.4 Plt Count 232 MPV 10.9 Immature Gran % (Auto) 0.9 H Neut % (Auto) 91.5 H Lymph % (Auto) 4.9 L [place] % (Auto) 2.5 Eos % (Auto) 0.0 Baso % (Auto) 0.2 Lymph # (Auto) 0.7 L [place] # (Auto) 0.4 Eos # (Auto) 0.0 Baso # (Auto) 0.0 Abs Immat Gran (auto) 0.13 H Absolute Neuts (auto) 13.3 H Absolute Nucleated RBC 0.000 Nucleated RBC % (auto) 0.0 Smear Tech's Comments VERIFIED ESR PT 10.7 L INR 0.9 Anion Gap 17 Estim Creat Clear Calc 62.7 Estimated GFR > 60 POC Glucose Random Glucose 239 H Calcium 10.0 Total Bilirubin 1.1 H AST 21 ALT 27 Alkaline Phosphatase 61 C-Reactive Protein 0.91 H Total Protein 7.8 Albumin 4.7 Lipase 8 Beta HCG, Quant < 2 Urine Color Urine Appearance Urine pH Ur Specific Brent Urine Protein Urine Glucose (UA) Urine Ketones Urine Blood Urine Nitrite Ur Leukocyte Esterase Urine RBC Urine WBC Ur Squamous Epith Cells Urine Bacteria Hyaline Casts Stool Occult Blood Stl C. cayetanensis PCR Stool Rotavirus A PCR Stl Adenov F 40/ PCR Stool Astrovirus (PCR) Stool Campylobacter PCR Stool Cryptosporidium PCR Stl Sh Tox Pr E STEC PCR Stool E coli O157 PCR Stl Enterotoxigenic E PCR Stool EPEC (PCR) Stool EAEC (PCR) Stl E. histolytica PCR Stool Giardia Lamblia PCR Stl P. shigelloides PCR Stool Salmonella PCR Stool Sapovirus (PCR) Stl Shigella/EIEC PCR St Y.enterocolitica PCR Stool Vibrio (PCR) Stl Vibrio cholerae PCR Stl Norovirus GI/GII PCR C. difficile Tox B Gene Blood Type Antibody Screen 05/12/23 05/12/23 05/12/23 19:49 19:49 21:59 MCV MCH MCHC RDW Plt Count MPV Immature Gran % (Auto) Neut % (Auto) Lymph % (Auto) [place] % (Auto) Eos % (Auto) Baso % (Auto) Lymph # (Auto) [place] # (Auto) Eos # (Auto) Baso # (Auto) Abs Immat Gran (auto) Absolute Neuts (auto) Absolute Nucleated RBC Nucleated RBC % (auto) Smear Tech's Comments ESR 4 PT INR Anion Gap Estim Creat Clear Calc Estimated GFR POC Glucose Random Glucose Calcium Total Bilirubin AST ALT Alkaline Phosphatase C-Reactive Protein Total Protein Albumin Lipase Beta HCG, Quant Urine Color Urine Appearance Urine pH Ur Specific Brent Urine Protein Urine Glucose (UA) Urine Ketones Urine Blood Urine Nitrite Ur Leukocyte Esterase Urine RBC Urine WBC Ur Squamous Epith Cells Urine Bacteria Hyaline Casts Stool Occult Blood POSITIVE Stl C. cayetanensis PCR Stool Rotavirus A PCR Stl Adenov F 40/ PCR Stool Astrovirus (PCR) Stool Campylobacter PCR Stool Cryptosporidium PCR Stl Sh Tox Pr E STEC PCR Stool E coli O157 PCR Stl Enterotoxigenic E PCR Stool EPEC (PCR) Stool EAEC (PCR) Stl E. histolytica PCR Stool Giardia Lamblia PCR Stl P. shigelloides PCR Stool Salmonella PCR Stool Sapovirus (PCR) Stl Shigella/EIEC PCR St Y.enterocolitica PCR Stool Vibrio (PCR) Stl Vibrio cholerae PCR Stl Norovirus GI/GII PCR C. difficile Tox B Gene Blood Type O Positive Antibody Screen NEGATIVE 05/12/23 05/13/23 05/13/23 21:59 06:42 08:57 MCV MCH MCHC RDW Plt Count MPV Immature Gran % (Auto) Neut % (Auto) Lymph % (Auto) [place] % (Auto) Eos % (Auto) Baso % (Auto) Lymph # (Auto) [place] # (Auto) Eos # (Auto) Baso # (Auto) Abs Immat Gran (auto) Absolute Neuts (auto) Absolute Nucleated RBC Nucleated RBC % (auto) Smear Tech's Comments ESR PT INR Anion Gap 18 Estim Creat Clear Calc 73.6 Estimated GFR > 60 POC Glucose Random Glucose 212 H Calcium 8.2 L D Total Bilirubin AST ALT Alkaline Phosphatase C-Reactive Protein Total Protein Albumin Lipase Beta HCG, Quant Urine Color Urine Appearance Urine pH Ur Specific Brent Urine Protein Urine Glucose (UA) Urine Ketones Urine Blood Urine Nitrite Ur Leukocyte Esterase Urine RBC Urine WBC Ur Squamous Epith Cells Urine Bacteria Hyaline Casts Stool Occult Blood Stl C. cayetanensis PCR Not Detected Stool Rotavirus A PCR Not Detected Stl Adenov F 40/41 PCR Not Detected Stool Astrovirus (PCR) Not Detected Stool Campylobacter PCR Not Detected Stool Cryptosporidium PCR Not Detected Stl Sh Tox Pr E STEC PCR Not Detected Stool E coli O157 PCR Not applicable Stl Enterotoxigenic E PCR Not Detected Stool EPEC (PCR) Detected A Stool EAEC (PCR) Not Detected Stl E. histolytica PCR Not Detected Stool Giardia Lamblia PCR Not Detected Stl P. shigelloides PCR Not Detected Stool Salmonella PCR Not Detected Stool Sapovirus (PCR) Not Detected Stl Shigella/EIEC PCR Not Detected St Y.enterocolitica PCR Not Detected Stool Vibrio (PCR) Not Detected Stl Vibrio cholerae PCR Not Detected Stl Norovirus GI/GII PCR Not Detected C. difficile Tox B Gene NEGATIVE Blood Type Antibody Screen 05/13/23 05/13/23 11:31 11:51 MCV MCH MCHC RDW Plt Count MPV Immature Gran % (Auto) Neut % (Auto) Lymph % (Auto) [place] % (Auto) Eos % (Auto) Baso % (Auto) Lymph # (Auto) [place] # (Auto) Eos # (Auto) Baso # (Auto) Abs Immat Gran (auto) Absolute Neuts (auto) Absolute Nucleated RBC Nucleated RBC % (auto) Smear Tech's Comments ESR PT INR Anion Gap Estim Creat Clear Calc Estimated GFR POC Glucose 206 H Random Glucose Calcium Total Bilirubin AST ALT Alkaline Phosphatase C-Reactive Protein Total Protein Albumin Lipase Beta HCG, Quant Urine Color Yellow Urine Appearance Clear Urine pH 5.5 Ur Specific Brent >= 1.030 H Urine Protein Trace Urine Glucose (UA) >=1000 H Urine Ketones >=160 Urine Blood Negative Urine Nitrite Negative Ur Leukocyte Esterase Negative Urine RBC 0-2 Urine WBC 0-5 Ur Squamous Epith Cells 0-2 Urine Bacteria None Seen Hyaline Casts 0-2 Stool Occult Blood Stl C. cayetanensis PCR Stool Rotavirus A PCR Stl Adenov F 40/41 PCR Stool Astrovirus (PCR) Stool Campylobacter PCR Stool Cryptosporidium PCR Stl Sh Tox Pr E STEC PCR Stool E coli O157 PCR Stl Enterotoxigenic E PCR Stool EPEC (PCR) Stool EAEC (PCR) Stl E. histolytica PCR Stool Giardia Lamblia PCR Stl P. shigelloides PCR Stool Salmonella PCR Stool Sapovirus (PCR) Stl Shigella/EIEC PCR St Y.enterocolitica PCR Stool Vibrio (PCR) Stl Vibrio cholerae PCR Stl Norovirus GI/GII PCR C. 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 Sepsis 2/2 Acute colitis, infectious vs inflammatory Leukocytosis and Tachycardia w infx normal LA,Low ESR CT scan showing almost pancolitis pictures, she is female in 50s which puts her at higher risk of IBD. Pending stool panel IVF bolus and maintenance continue Abx of Flagyl and Ceftriaxone . GIB Likely 2/2 colitis H&H stable around 15 GI evaluation-start clear liquid diet, continue IV antibiotics. If no improvement then may need endoscopy. Hypothyroidism Restart Med when confirmed Hx Diabetes type 2 Restart home meds, SSI if needed hold lantus ongoing hospitilsation need:treatment of colitis -need iv antibiotics -pending specialist evaluation Time Spent With Patient Time: Total time managing care of this patient today ____ minutes. Quality Stroke Does the patient have a stroke diagnosis?: No VTE Prior VTE?: No VTE Risk Level:: Medical - moderate - high VTE Device Contraindication: N/A - Device Ordered VTE Drug Contraindication: Treatment Not Indicated
--- NOTE | 2023-05-13 16:17 | PM.EVENT ---
Event Note Date of Service: 05/13/23 Event Note: GI consult dictated presentation seems consistent with acute infectious colitis less likely ischemic, IBD agree with antibiotics and supportive care start clear liquids consider LGI endoscopy if no improvement. Time Spent With Patient Time: Total time managing care of this patient today ____ minutes.
--- NOTE | 2023-05-13 16:40 | PC.NURSE ---
patient resting in bed, advanced to clear liquids, gave patient jello and a diet efrain cally, tolerated okay, patient had burped and spit up small amount
--- NOTE | 2023-05-13 17:00 | CONS_ITS ---
DATE OF SERVICE: 05/13/2023 REFERRING PHYSICIAN: Sara Matthew MD REASON FOR CONSULTATION: Colitis. HISTORY OF PRESENT ILLNESS: The patient is a pleasant 57-year-old woman, who was admitted to the hospital after presenting to the emergency department yesterday evening with complaints of diarrhea and rectal bleeding. She was well until the day of admission, when she developed the urge to move her bowels after having coffee in the morning. Following this, she had multiple episodes of diarrhea, but did not notice if it was bloody until she had recurrent episodes in the afternoon. She had some associated nausea and vomiting, and presented to the emergency department. She denies any recent travel, ill contacts or suspect food ingestions. She does have a history of colon polyps and last underwent a colonoscopy a year ago in [place], which was negative for polyps or colitis by her report. In the emergency department, she was evaluated with laboratory studies showing a white blood cell count of 14.6 with a hematocrit of 48.7. Repeat hematocrit last night was stable at 46.6. Further evaluation was undertaken with imaging, which is reviewed. This is interpreted as showing diffuse submucosal thickening of the colon consistent with nonspecific colitis. No obvious site for GI hemorrhage was seen. PAST MEDICAL HISTORY: 1. Colon polyps as above. 2. History of H pylori infection diagnosed at the time of upper endoscopy, which was done with her last colonoscopy. 3. Hypothyroidism. 4. Diabetes type 2. 5. Cholecystectomy. CURRENT MEDICATIONS: Her current medication list is reviewed in the chart. ALLERGIES: MULTIPLE MEDICATION ALLERGIES ARE REVIEWED. FAMILY HISTORY: This is reviewed with the patient. A cousin has ulcerative colitis. SOCIAL HISTORY: There is no current tobacco, alcohol, or substance abuse. REVIEW OF SYSTEMS: SKIN: No pruritus. HEENT: Negative. CARDIOPULMONARY: She denies shortness of breath or chest pain. GASTROINTESTINAL: As above. GENITOURINARY: Negative. NEUROPSYCHIATRIC: Negative. PHYSICAL EXAMINATION: GENERAL: Shows a pleasant female, lying in bed. VITAL SIGNS: Reviewed in the electronic medical record and are stable. SKIN: Anicteric. HEENT: Shows no scleral icterus. NECK: Without lymphadenopathy or thyromegaly. LUNGS: Clear. HEART: Shows regular rate and rhythm. S1, S2. No murmur. ABDOMEN: Soft without focal masses or tenderness. Bowel sounds are present. There is mild diffuse tenderness to palpation over both lower quadrants. There is no guarding or rebound. EXTREMITIES: Without edema. LABORATORY DATA: Reviewed and stool testing was positive for enteropathogenic E coli. IMPRESSION: Her presentation appears consistent with an acute colitis, likely infectious and less likely ischemic or inflammatory. She is currently on broad-spectrum antibiotics and is currently getting treatment with supportive care with IV fluids and antiemetics. She feels like she could start clear liquids and this will be ordered. If her symptoms persist, limited lower GI examination could be useful in further evaluating her colitis, but I do not think this is necessary to be done at this time, and I discussed this with her. I would continue supportive care and antibiotics. Thanks for asking me to see her. I will follow her in the hospital with you. MD COLT Magana/ESTELA / [phone]
[2023-05-13 18:16] LABS: Glucose, Whole Blood 158 mg/dL (60-115)
[2023-05-13] MEDS: Insulin Lispro 100 UNIT/ML 3 ML VIAL SUBCUT ×2 (18:51→21:49)
[2023-05-13 19:26] VITALS: BP 109/59; PULSE 89; RESP 18; TEMP 37; O2SAT 98
[2023-05-13] MEDS: Atorvastatin Calcium 10 MG TABLET PO (19:57)
[2023-05-13 20:42] LABS: Glucose, Whole Blood 176 mg/dL (60-115)
[2023-05-14] MEDS: metroNIDAZOLE/NS 500 MG/100 ML PIGGYBACK 100 MG IV ×4 (00:15→23:14)
[2023-05-14] MEDS: HYDROmorphone HCl 0.5 MG/0.5 ML SYRINGE 0.25 MG IVPUSH ×7 (01:18→21:22)
[2023-05-14] MEDS: 0.9 % Sodium Chloride 1,000 ML 125 ML IVCONT ×2 (03:33→12:36)
[2023-05-14 04:00] VITALS: BP 95/52; PULSE 99; RESP 18; TEMP 36.4; O2SAT 98
[2023-05-14] MEDS: Omeprazole 40 MG CAPSULE.DR PO (05:45)
[2023-05-14] MEDS: Levothyroxine Sodium 112 MCG TABLET PO (05:45)
[2023-05-14 07:19] VITALS: BP 109/65; PULSE 94; RESP 18; TEMP 36.4; O2SAT 95
[2023-05-14 07:35] LABS: Hematocrit 40.1 % (37.0-47.0); Hemoglobin 13.4 g/dl (12.0-16.0); Mean Corpuscular HGB Conc 33.4 g/dl (31.0-35.0); Mean Corpuscular Hemoglobin 34.4 pg (27.0-33.0); Mean Corpuscular Volume 103.1 fL (80.0-98.0); Mean Platelet Volume 10.7 fL (9.4-12.3); Platelet Count 168 X10*3/uL (160-400); Red Blood Count 3.89 X10*6/uL (4.20-5.50); Red Cell Distribution Width 13.1 % (11.0-16.0); White Blood Count 11.2 X10*3/uL (4.8-10.8)
[2023-05-14 07:35] LABS: Glucose, Whole Blood 100 mg/dL (60-115)
[2023-05-14 07:50] LABS: Anion Gap 17 (12-20); Blood Urea Nitrogen 15 mg/dL (9-16); Calcium 8.1 mg/dL (8.4-10.2); Carbon Dioxide 14 mmol/L (22-29); Chloride 113 mmol/L (96-108); Creatinine Clr Calc Pharmacy 72.7; Estimated Glomerular Filt Rate > 60; Glucose Random 106 mg/dL (60-115); Potassium 3.9 mmol/L (3.3-5.1); Sodium 140 mmol/L (135-145)
[2023-05-14] MEDS: Empagliflozin 25 MG TABLET PO (08:35)
[2023-05-14] MEDS: Gabapentin 300 MG CAPSULE PO ×3 (08:35→19:51)
[2023-05-14] MEDS: 0.9 % Sodium Chloride Flush 3 ML SYRINGE IVFLUSH ×2 (08:37→19:53)
[2023-05-14] MEDS: ondansetron HCL 4 MG/2 ML VIAL IVPUSH ×2 (08:39→15:37)
[2023-05-14 11:29] LABS: Glucose, Whole Blood 130 mg/dL (60-115)
--- NOTE | 2023-05-14 11:54 | MHC.CM.PN ---
EMR reviewed and per MD rounds, pt is not medically cleared for D/C today due to treatment of severe colitis requiring IV abx. CM will continue to follow.
[2023-05-14 15:03] VITALS: BP 120/76; PULSE 108; RESP 20; TEMP 36.7; O2SAT 97
[2023-05-14 16:19] LABS: Glucose, Whole Blood 121 mg/dL (60-115)
--- NOTE | 2023-05-14 17:37 | PM.GIPN ---
Subjective Subjective Date of Service: 05/14/23 Interval History: bleeding is better c/o crampy abd pain Critical Care Time (minutes): 0 Physical Exam Vital Signs: Vital Signs: Last Vital Signs Temp 98.1 F 05/14/23 15:03 Pulse 108 H 05/14/23 15:03 Resp 20 05/14/23 15:03 BP 120/76 05/14/23 15:03 Pulse Ox 97 05/14/23 15:03 O2 Del Method Room Air 05/14/23 15:03 BMI result Body Mass Index 26.5 GI: Other: abdomen is soft with mild tenderness Objective Data Labs 05/14/23 07:15 05/14/23 07:15 Labs: Laboratory Results - last 24 hr 05/13/23 05/13/23 05/14/23 18:12 20:39 07:15 WBC 11.2 H RBC 3.89 L D Hgb 13.4 Hct 40.1 MCV 103.1 H MCH 34.4 H MCHC 33.4 RDW 13.1 Plt Count 168 D MPV 10.7 Absolute Nucleated RBC 0.000 Nucleated RBC % (auto) 0.0 Sodium Potassium Chloride Carbon Dioxide Anion Gap BUN Creatinine Estim Creat Clear Calc Estimated GFR POC Glucose 158 H 176 H Random Glucose Calcium 05/14/23 05/14/23 05/14/23 07:15 07:30 11:26 WBC RBC Hgb Hct MCV MCH MCHC RDW Plt Count MPV Absolute Nucleated RBC Nucleated RBC % (auto) Sodium 140 Potassium 3.9 Chloride 113 H Carbon Dioxide 14 L Anion Gap 17 BUN 15 Creatinine 0.76 Estim Creat Clear Calc 72.7 Estimated GFR > 60 POC Glucose 100 130 H Random Glucose 106 Calcium 8.1 L 05/14/23 16:12 WBC RBC Hgb Hct MCV MCH MCHC RDW Plt Count MPV Absolute Nucleated RBC Nucleated RBC % (auto) Sodium Potassium Chloride Carbon Dioxide Anion Gap BUN Creatinine Estim Creat Clear Calc Estimated GFR POC Glucose 121 H Random Glucose Calcium Procedures Date of Service Date of Service: 05/14/23 Progress Note: A&P Assessment and plan (1) Acute colitis: Status: Acute Assessment and Plan: continue abx start bentyl for cramps Time Spent With Patient Time: Total time managing care of this patient today ____ minutes. Quality Stroke Does the patient have a stroke diagnosis?: No VTE Prior VTE?: No VTE Risk Level:: Medical - moderate - high VTE Device Contraindication: N/A - Device Ordered VTE Drug Contraindication: Treatment Not Indicated
--- NOTE | 2023-05-14 17:52 | PC.NURSE ---
Pt Neurologically intact. Continues to complain of pain to lower abdomen 04/17 per pt reports Dilaudid did not help in am Dr Kline notified. Scheduled doses IV Dilaudid ordered and given with good effect. c/o nausea zofran given with good effect X2. BS+X4 abdomen tender to touch. Continues IV fluids per order. Per pt continues to have difficulty with even liquids. Reports cramping feeling to abdomen. Per patient last stool with blood. Seen by GI. Will continue to monitor and report changes
--- NOTE | 2023-05-14 18:23 | P.PNIM_ITS ---
Subjective Subjective Date of Service: 05/14/23 Interval History: GIB Review of Systems still c/o of haveing some bleedin abd similar to yesterday no fevers Physical Exam Vital Signs: Vital Signs: Last Vital Signs Temp 98.1 F 05/14/23 15:03 Pulse 108 H 05/14/23 15:03 Resp 20 05/14/23 15:03 BP 120/76 05/14/23 15:03 Pulse Ox 97 05/14/23 15:03 O2 Del Method Room Air 05/14/23 15:03 BMI result Body Mass Index 26.5 Appearance: Alert.? Oriented X3. cvs: rrr, [id number] . res: clear to auscultation ,no rhonchii or wheezing abd: soft? ,nt, bs present. ext pulses present , no cyanosis neuro: axo3 , nonfocal. Objective Data Active Medications Albuterol Sulfate (Albuterol Sulfate 90 Mcg 8 Gm Inhaler) 2 puff INHALE QID PRN PRN Reason: Wheezing Atorvastatin Calcium (Atorvastatin Calcium 10 Mg Tablet) 10 mg PO BEDTIME [facility] Last Admin: 05/13/23 19:57 Dose: 10 mg Documented By: STEFANO Dextrose (Dextrose 50 % 25 Gm/50 Ml Syringe) 25 gm IVPUSH Q15M PRN; Protocol PRN Reason: per Hypoglycemia Standing Ord. Dicyclomine HCl (Dicyclomine Hcl 10 Mg Capsule) 20 mg PO QIDACHS [facility] Empagliflozin (Empagliflozin 25 Mg Tablet) 25 mg PO DAILY [facility] Last Admin: 05/14/23 08:35 Dose: 25 mg Documented By: ALIRIO Gabapentin (Gabapentin 300 Mg Capsule) 300 mg PO TID [facility] Last Admin: 05/14/23 15:35 Dose: 300 mg Documented By: ALIRIO Glucose (Glucose Gel 15 Gm Gel..Gram.) 15 gm PO Q15M PRN; Protocol PRN Reason: per Hypoglycemia Standing Ord. Hydromorphone HCl (Hydromorphone Hcl 0.5 Mg/0.5 Ml Syringe) 0.25 mg IVPUSH Q4H PRN; Protocol PRN Reason: Pain, Severe (Pain Scale 7-10) Last Admin: 05/14/23 16:34 Dose: 0.25 mg Documented By: ALIRIO Hydromorphone HCl (Hydromorphone Hcl 0.5 Mg/0.5 Ml Syringe) 0.25 mg IVPUSH BID [facility]; Protocol Last Admin: 05/14/23 08:35 Dose: 0.25 mg Sodium Chloride (Ns) 1,000 mls @ 125 mls/hr IVCONT .Q8H [facility] Last Admin: 05/14/23 12:36 Dose: 125 mls/hr Documented By: ALIRIO Metronidazole (Flagyl) 500 mg in 100 mls @ 100 mls/hr IV Q8H [facility] Last Infusion: 05/14/23 16:40 Dose: 0 mls/hr Documented By: ALIRIO Ceftriaxone Sodium 1 gm/ (Sodium Chloride) 50 mls @ 100 mls/hr IV 2200 [facility] Last Infusion: 05/14/23 00:16 Dose: 0 mls/hr Documented By: STEFANO Insulin Human Lispro (Insulin Lispro 100 Unit/Ml 3 Ml Vial) 0 unit SUBCUT QIDACHS [facility]; Protocol Last Admin: 05/14/23 16:21 Dose: Not Given Documented By: ALIRIO Non-Admin Reason: No Insulin Coverage Levothyroxine Sodium (Levothyroxine Sodium 112 Mcg Tablet) 112 mcg PO DAILY@0600 [facility] Last Admin: 05/14/23 05:45 Dose: 112 mcg Documented By: STEFANO Multivitamins/Vitamin C (Multivitamin Tablet) 1 tab PO DAILY [facility] Last Admin: 05/14/23 08:39 Dose: Not Given Documented By: ALIRIO Non-Admin Reason: Patient Refused Omeprazole (Omeprazole 40 Mg Alma Delia.) 40 mg PO DAILY@0630 [facility] Last Admin: 05/14/23 05:45 Dose: 40 mg Documented By: STEFANO Ondansetron HCl (Ondansetron Hcl 4 Mg/2 Ml Vial) 4 mg IVPUSH Q8H PRN PRN Reason: Nausea and Vomiting Last Admin: 05/14/23 15:37 Dose: 4 mg Documented By: ALIRIO Sodium Chloride (0.9 % Sodium Chloride Flush 3 Ml Syringe) 3 ml IVFLUSH QSHIFT [facility] Last Admin: 05/14/23 15:41 Dose: Not Given Documented By: ALIRIO Non-Admin Reason: IV Running Labs 05/14/23 07:15 05/14/23 07:15 Labs: Laboratory Results - last 24 hr 05/13/23 05/14/23 05/14/23 20:39 07:15 07:15 MCV 103.1 H MCH 34.4 H MCHC 33.4 RDW 13.1 Plt Count 168 D MPV 10.7 Absolute Nucleated RBC 0.000 Nucleated RBC % (auto) 0.0 Anion Gap 17 Estim Creat Clear Calc 72.7 Estimated GFR > 60 POC Glucose 176 H Random Glucose 106 Calcium 8.1 L 05/14/23 05/14/23 05/14/23 07:30 11:26 16:12 MCV MCH MCHC RDW Plt Count MPV Absolute Nucleated RBC Nucleated RBC % (auto) Anion Gap Estim Creat Clear Calc Estimated GFR POC Glucose 100 130 H 121 H Random Glucose Calcium Assessment and Plan (1) Sepsis: Status: Acute (2) GIB (gastrointestinal bleeding): Status: Acute (3) Acute colitis: Status: Acute Plan 57 years old lady with PMH of Hypothyroid, DMII among others who presents to the hospital with abd pain, 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 Sepsis 2/2 Acute colitis, infectious vs inflammatory Leukocytosis and Tachycardia improving normal LA,Low ESR CT scan showing almost pancolitis pictures, she is female in 50s which puts her at higher risk of IBD. stool panel-positive EPEC ,c diff neg Gi recomened -continue Abx of Flagyl and Ceftriaxone ,ivf .if symptom persists then may be needing limited lower GI examination. GIB Likely 2/2 colitis H&H stable around 13.4/40.1 GI evaluation-start clear liquid diet, continue IV antibiotics.? If no improvement then may need endoscopy. Hypothyroidism Restart Med when confirmed Hx Diabetes type 2 Restart home meds, SSI if needed hold lantus ongoing hospitilsation need:treatment of colitis -need iv antibiotics , still symptomatic-not optimal improvement yet. Time Spent With Patient Time: Total time managing care of this patient today ____ minutes. Quality Stroke Does the patient have a stroke diagnosis?: No VTE Prior VTE?: No VTE Risk Level:: Medical - moderate - high VTE Device Contraindication: N/A - Device Ordered VTE Drug Contraindication: Treatment Not Indicated
[2023-05-14 19:21] VITALS: BP 125/70; PULSE 104; RESP 14; TEMP 36.6; O2SAT 95
[2023-05-14] MEDS: Dicyclomine HCl 10 MG CAPSULE 20 MG PO (19:51)
[2023-05-14] MEDS: Atorvastatin Calcium 10 MG TABLET PO (19:52)
[2023-05-14 19:58] LABS: Glucose, Whole Blood 122 mg/dL (60-115)
[2023-05-14] MEDS: cefTRIAXone sodium 1 GM in 0.9 % Sodium Chloride 50 ML IV (21:22)
[2023-05-14 23:53] VITALS: BP 115/59; PULSE 98; RESP 15; TEMP 36.7; O2SAT 95
[2023-05-15] MEDS: 0.9 % Sodium Chloride 1,000 ML 125 ML IVCONT (01:21)
[2023-05-15] MEDS: Levothyroxine Sodium 112 MCG TABLET PO (03:32)
[2023-05-15] MEDS: HYDROmorphone HCl 0.5 MG/0.5 ML SYRINGE 0.25 MG IVPUSH ×4 (03:32→20:12)
[2023-05-15] MEDS: Omeprazole 40 MG CAPSULE.DR PO (03:32)
[2023-05-15 03:38] VITALS: BP 131/72; PULSE 107; RESP 14; TEMP 36.6; O2SAT 94
[2023-05-15 07:10] VITALS: BP 131/74; PULSE 95; RESP 18; TEMP 36.1; O2SAT 96
[2023-05-15 07:21] LABS: Glucose, Whole Blood 106 mg/dL (60-115)
[2023-05-15] MEDS: ondansetron HCL 4 MG/2 ML VIAL IVPUSH (08:32)
[2023-05-15] MEDS: metroNIDAZOLE/NS 500 MG/100 ML PIGGYBACK 100 MG IV ×3 (08:33→23:12)
[2023-05-15] MEDS: 0.9 % Sodium Chloride Flush 3 ML SYRINGE IVFLUSH ×3 (08:37→23:12)
--- NOTE | 2023-05-15 09:19 | P.PNGI_ITS ---
Subjective Subjective Date of Service: 05/15/23 Interval History: c/o continued abd pain better with meds bentyl helps pain Critical Care Time (minutes): 0 Physical Exam 2 Vital Signs: Vital Signs: Last Vital Signs Temp 96.9 F 05/15/23 07:10 Pulse 95 05/15/23 07:10 Resp 18 05/15/23 07:10 BP 131/74 05/15/23 07:10 Pulse Ox 96 05/15/23 07:10 O2 Del Method Room Air 05/15/23 07:10 BMI result Body Mass Index 26.5 GI: Other: abdomen is soft with no focal tenderness Objective Data Labs 05/14/23 07:15 05/14/23 07:15 Labs: Laboratory Results - last 24 hr 05/14/23 05/14/23 05/14/23 11:26 16:12 19:49 POC Glucose 130 H 121 H 122 H 05/15/23 07:15 POC Glucose 106 Procedures Date of Service Date of Service: 05/15/23 Progress Note: A&P Assessment and plan (1) Acute colitis: Status: Acute Assessment and Plan: bleeding has ceased major issue is pain control and dietary intake f/u ct ordered to reassess colitis continue present management. Time Spent With Patient Time: Total time managing care of this patient today ____ minutes. Quality Stroke Does the patient have a stroke diagnosis?: No VTE Prior VTE?: No VTE Risk Level:: Medical - moderate - high VTE Device Contraindication: N/A - Device Ordered VTE Drug Contraindication: Treatment Not Indicated
[2023-05-15] MEDS: Dicyclomine HCl 10 MG CAPSULE 20 MG PO ×4 (09:28→20:55)
[2023-05-15] MEDS: Empagliflozin 25 MG TABLET PO (09:29)
[2023-05-15] MEDS: Gabapentin 300 MG CAPSULE PO ×3 (09:29→20:55)
[2023-05-15 11:23] LABS: Hematocrit 41.9 % (37.0-47.0); Hemoglobin 13.8 g/dl (12.0-16.0)
[2023-05-15 11:30] LABS: Anion Gap 18 (12-20); Blood Urea Nitrogen 12 mg/dL (9-16); Calcium 8.3 mg/dL (8.4-10.2); Carbon Dioxide 14 mmol/L (22-29); Chloride 110 mmol/L (96-108); Creatinine Clr Calc Pharmacy 69.9; Estimated Glomerular Filt Rate > 60; Glucose Random 169 mg/dL (60-115); Potassium 4.1 mmol/L (3.3-5.1); Sodium 138 mmol/L (135-145)
[2023-05-15 11:32] LABS: Glucose, Whole Blood 167 mg/dL (60-115)
[2023-05-15] MEDS: iohexoL 350 MG/ML 100 ML INFUS..BTL IV (13:01)
[2023-05-15] MEDS: Barium Sulfate Oral (Mocha) 450 ML ORAL.SUSP 900 ML PO (13:02)
[2023-05-15 15:21] VITALS: BP 136/79; PULSE 115; RESP 20; TEMP 36.3; O2SAT 97
[2023-05-15 16:02] LABS: Glucose, Whole Blood 135 mg/dL (60-115)
--- NOTE | 2023-05-15 16:32 | HO.PM.IMPN ---
Subjective Subjective Date of Service: 05/15/23 Interval History: GIB Review of Systems Abdominal pain seems somewhat improving No fever or chills Physical Exam Vital Signs: Vital Signs: Last Vital Signs Temp 97.4 F 05/15/23 15:21 Pulse 115 H 05/15/23 15:21 Resp 20 05/15/23 15:21 BP 136/79 05/15/23 15:21 Pulse Ox 97 05/15/23 15:21 O2 Del Method Room Air 05/15/23 15:21 BMI result Body Mass Index 26.5 Appearance: Alert.? Oriented X3. cvs: rrr, [id number] . res: clear to auscultation ,no rhonchii or wheezing abd: soft? ,nt, bs present. ext pulses present , no cyanosis neuro: axo3 , nonfocal. Objective Data Active Medications Albuterol Sulfate (Albuterol Sulfate 90 Mcg 8 Gm Inhaler) 2 puff INHALE QID PRN PRN Reason: Wheezing Atorvastatin Calcium (Atorvastatin Calcium 10 Mg Tablet) 10 mg PO BEDTIME [facility] Last Admin: 05/14/23 19:52 Dose: 10 mg Documented By: CHUY Dextrose (Dextrose 50 % 25 Gm/50 Ml Syringe) 25 gm IVPUSH Q15M PRN; Protocol PRN Reason: per Hypoglycemia Standing Ord. Dicyclomine HCl (Dicyclomine Hcl 10 Mg Capsule) 20 mg PO QIDACHS [facility] Last Admin: 05/15/23 12:29 Dose: 20 mg Documented By: LOUIS Empagliflozin (Empagliflozin 25 Mg Tablet) 25 mg PO DAILY [facility] Last Admin: 05/15/23 09:29 Dose: 25 mg Documented By: LOUIS Gabapentin (Gabapentin 300 Mg Capsule) 300 mg PO TID [facility] Last Admin: 05/15/23 14:48 Dose: 300 mg Documented By: LOUIS Glucose (Glucose Gel 15 Gm Gel..Gram.) 15 gm PO Q15M PRN; Protocol PRN Reason: per Hypoglycemia Standing Ord. Hydromorphone HCl (Hydromorphone Hcl 0.5 Mg/0.5 Ml Syringe) 0.25 mg IVPUSH Q4H PRN; Protocol PRN Reason: Pain, Severe (Pain Scale 7-10) Last Admin: 05/15/23 14:02 Dose: 0.25 mg Documented By: LOUIS Hydromorphone HCl (Hydromorphone Hcl 0.5 Mg/0.5 Ml Syringe) 0.25 mg IVPUSH BID [facility]; Protocol Last Admin: 05/15/23 08:32 Dose: 0.25 mg Documented By: LOUIS Metronidazole (Flagyl) 500 mg in 100 mls @ 100 mls/hr IV Q8H [facility] Last Admin: 05/15/23 16:06 Dose: 100 mls/hr Documented By: CHEYENNE Ceftriaxone Sodium 1 gm/ (Sodium Chloride) 50 mls @ 100 mls/hr IV 2200 [facility] Last Infusion: 05/14/23 21:55 Dose: Infused Documented By: CHUY Insulin Human Lispro (Insulin Lispro 100 Unit/Ml 3 Ml Vial) 0 unit SUBCUT QIDACHS [facility]; Protocol Last Admin: 05/15/23 12:31 Dose: Not Given Documented By: LOUIS Non-Admin Reason: NPO Levothyroxine Sodium (Levothyroxine Sodium 112 Mcg Tablet) 112 mcg PO DAILY@0600 [facility] Last Admin: 05/15/23 03:32 Dose: 112 mcg Documented By: CHUY Multivitamins/Vitamin C (Multivitamin Tablet) 1 tab PO DAILY [facility] Last Admin: 05/15/23 09:31 Dose: Not Given Documented By: LOUIS Non-Admin Reason: Patient Refused Omeprazole (Omeprazole 40 Mg Alma Delia.) 40 mg PO DAILY@0630 [facility] Last Admin: 05/15/23 03:32 Dose: 40 mg Documented By: CHUY Ondansetron HCl (Ondansetron Hcl 4 Mg/2 Ml Vial) 4 mg IVPUSH Q8H PRN PRN Reason: Nausea and Vomiting Last Admin: 05/15/23 08:32 Dose: 4 mg Documented By: LOUIS Sodium Chloride (0.9 % Sodium Chloride Flush 3 Ml Syringe) 3 ml IVFLUSH QSHIFT [facility] Last Admin: 05/15/23 16:06 Dose: 3 ml Documented By: CHEYENNE Labs 05/15/23 10:58 05/15/23 10:58 Labs: Laboratory Results - last 24 hr 05/14/23 05/15/23 05/15/23 19:49 07:15 10:58 Anion Gap 18 Estim Creat Clear Calc 69.9 Estimated GFR > 60 POC Glucose 122 H 106 Random Glucose 169 H Calcium 8.3 L 05/15/23 05/15/23 11:26 15:58 Anion Gap Estim Creat Clear Calc Estimated GFR POC Glucose 167 H 135 H Random Glucose Calcium Assessment and Plan (1) Sepsis: Status: Acute (2) GIB (gastrointestinal bleeding): Status: Acute (3) Acute colitis: Status: Acute Plan 57 years old lady with PMH of Hypothyroid, DMII among others who presents to the hospital with abd pain, 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 Sepsis 2/2 Acute colitis, infectious vs inflammatory Leukocytosis and Tachycardia improving normal LA,Low ESR CT scan showing almost pancolitis . stool panel-positive EPEC ,c diff neg Gi recomened -continue Abx of Flagyl and Ceftriaxone ,ivf .if symptom persists then may be needing limited lower GI examination. GIB Likely 2/2 colitis H&H stable around 13.4/40.1 GI evaluation-start clear liquid diet, continue IV antibiotics.? If no improvement then may need endoscopy. Hypothyroidism Restart Med when confirmed Hx Diabetes type 2 Restart home meds, SSI if needed hold lantus ongoing hospitilsation need:treatment of colitis -need iv antibiotics , still symptomatic-not optimal improvement yet. Time Spent With Patient Time: Total time managing care of this patient today ____ minutes. Quality Stroke Does the patient have a stroke diagnosis?: No VTE Prior VTE?: No VTE Risk Level:: Medical - moderate - high VTE Device Contraindication: N/A - Device Ordered VTE Drug Contraindication: Treatment Not Indicated
[2023-05-15 19:30] VITALS: BP 131/81; PULSE 101; RESP 16; TEMP 36.3; O2SAT 97
[2023-05-15 20:05] LABS: Glucose, Whole Blood 153 mg/dL (60-115)
[2023-05-15] MEDS: Atorvastatin Calcium 10 MG TABLET PO (20:55)
[2023-05-15] MEDS: Insulin Lispro 100 UNIT/ML 3 ML VIAL SUBCUT (20:58)
[2023-05-15] MEDS: cefTRIAXone sodium 1 GM in 0.9 % Sodium Chloride 50 ML IV (22:11)
[2023-05-15 23:40] VITALS: BP 121/66; PULSE 93; RESP 18; TEMP 36.7; O2SAT 97
[2023-05-16 03:42] VITALS: BP 135/84; PULSE 98; RESP 18; TEMP 36.3; O2SAT 98
[2023-05-16] MEDS: HYDROmorphone HCl 0.5 MG/0.5 ML SYRINGE 0.25 MG IVPUSH ×4 (03:44→20:14)
[2023-05-16] MEDS: ondansetron HCL 4 MG/2 ML VIAL IVPUSH ×2 (03:47→12:28)
[2023-05-16] MEDS: Omeprazole 40 MG CAPSULE.DR PO (06:01)
[2023-05-16] MEDS: Levothyroxine Sodium 112 MCG TABLET PO (06:01)
[2023-05-16 07:17] VITALS: BP 124/73; PULSE 100; RESP 18; TEMP 36.6; O2SAT 98
[2023-05-16 07:36] LABS: Glucose, Whole Blood 107 mg/dL (60-115)
[2023-05-16] MEDS: Dicyclomine HCl 10 MG CAPSULE 20 MG PO ×4 (08:05→20:16)
[2023-05-16] MEDS: Empagliflozin 25 MG TABLET PO (08:06)
[2023-05-16] MEDS: Gabapentin 300 MG CAPSULE PO ×3 (08:06→20:16)
[2023-05-16] MEDS: metroNIDAZOLE/NS 500 MG/100 ML PIGGYBACK 100 MG IV ×3 (08:07→23:35)
[2023-05-16] MEDS: Multivitamin TABLET 1 TAB PO (08:08)
[2023-05-16 09:41] LABS: Hemoglobin 14.2 g/dl (12.0-16.0)
[2023-05-16 09:50] LABS: Anion Gap 19 (12-20); Blood Urea Nitrogen 9 mg/dL (9-16); Calcium 8.7 mg/dL (8.4-10.2); Carbon Dioxide 16 mmol/L (22-29); Chloride 108 mmol/L (96-108); Creatinine Clr Calc Pharmacy 66.5; Estimated Glomerular Filt Rate > 60; Glucose Random 98 mg/dL (60-115); Potassium 3.7 mmol/L (3.3-5.1); Sodium 139 mmol/L (135-145)
--- NOTE | 2023-05-16 10:20 | P.PNGI_ITS ---
Subjective Subjective Date of Service: 05/16/23 Interval History: feels better wants to eat Critical Care Time (minutes): 0 Physical Exam 2 Vital Signs: Vital Signs: Last Vital Signs Temp 97.9 F 05/16/23 07:17 Pulse 100 05/16/23 07:17 Resp 18 05/16/23 07:17 BP 124/73 05/16/23 07:17 Pulse Ox 98 05/16/23 07:17 O2 Del Method Room Air 05/16/23 07:17 BMI result Body Mass Index 26.5 GI: Other: abdomen is soft and n ontender Objective Data Labs 05/16/23 08:44 05/16/23 08:44 Labs: Laboratory Results - last 24 hr 05/15/23 05/15/23 05/15/23 10:58 11:26 15:58 Hgb 13.8 Hct 41.9 Sodium 138 Potassium 4.1 Chloride 110 H Carbon Dioxide 14 L Anion Gap 18 BUN 12 Creatinine 0.79 Estim Creat Clear Calc 69.9 Estimated GFR > 60 POC Glucose 167 H 135 H Random Glucose 169 H Calcium 8.3 L 05/15/23 05/16/23 05/16/23 20:02 07:18 08:44 Hgb 14.2 Hct 42.0 Sodium 139 Potassium 3.7 Chloride 108 Carbon Dioxide 16 L Anion Gap 19 BUN 9 Creatinine 0.83 Estim Creat Clear Calc 66.5 Estimated GFR > 60 POC Glucose 153 H 107 Random Glucose 98 Calcium 8.7 Procedures Date of Service Date of Service: 05/16/23 Progress Note: A&P Assessment and plan (1) Acute colitis: Status: Acute Assessment and Plan: doing better advance diet Time Spent With Patient Time: Total time managing care of this patient today ____ minutes. Quality Stroke Does the patient have a stroke diagnosis?: No VTE Prior VTE?: No VTE Risk Level:: Medical - moderate - high VTE Device Contraindication: N/A - Device Ordered VTE Drug Contraindication: Treatment Not Indicated
--- NOTE | 2023-05-16 10:29 | MHC.CM.PN ---
Per ROUNDS discussion, Patient is not yet medically cleared for dc r/t s/s of pain; home is the goal and CM will continue to follow.
[2023-05-16 11:26] LABS: Glucose, Whole Blood 149 mg/dL (60-115)
--- NOTE | 2023-05-16 15:00 | P.PNIM_ITS ---
Subjective Subjective Date of Service: 05/16/23 Interval History: GIB Review of Systems Abdominal pain seems somewhat improving No fever or chills Physical Exam 2 Vital Signs: Vital Signs: Last Vital Signs Temp 97.9 F 05/16/23 07:17 Pulse 100 05/16/23 07:17 Resp 18 05/16/23 07:17 BP 124/73 05/16/23 07:17 Pulse Ox 98 05/16/23 07:17 O2 Del Method Room Air 05/16/23 07:17 BMI result Body Mass Index 26.5 Appearance: Alert.? Oriented X3. cvs: rrr, [id number] . res: clear to auscultation ,no rhonchii or wheezing abd: soft? ,nt, bs present. ext pulses present , no cyanosis neuro: axo3 , nonfocal. Objective Data Active Medications Albuterol Sulfate (Albuterol Sulfate 90 Mcg 8 Gm Inhaler) 2 puff INHALE QID PRN PRN Reason: Wheezing Atorvastatin Calcium (Atorvastatin Calcium 10 Mg Tablet) 10 mg PO BEDTIME [facility] Last Admin: 05/15/23 20:55 Dose: 10 mg Documented By: CHEYENNE Dextrose (Dextrose 50 % 25 Gm/50 Ml Syringe) 25 gm IVPUSH Q15M PRN; Protocol PRN Reason: per Hypoglycemia Standing Ord. Dicyclomine HCl (Dicyclomine Hcl 10 Mg Capsule) 20 mg PO QIDACHS [facility] Last Admin: 05/16/23 12:27 Dose: 20 mg Documented By: ANJEL Empagliflozin (Empagliflozin 25 Mg Tablet) 25 mg PO DAILY [facility] Last Admin: 05/16/23 08:06 Dose: 25 mg Documented By: ANJEL Gabapentin (Gabapentin 300 Mg Capsule) 300 mg PO TID [facility] Last Admin: 05/16/23 08:06 Dose: 300 mg Documented By: ANJEL Glucose (Glucose Gel 15 Gm Gel..Gram.) 15 gm PO Q15M PRN; Protocol PRN Reason: per Hypoglycemia Standing Ord. Hydromorphone HCl (Hydromorphone Hcl 0.5 Mg/0.5 Ml Syringe) 0.25 mg IVPUSH Q4H PRN; Protocol PRN Reason: Pain, Severe (Pain Scale 7-10) Last Admin: 05/16/23 03:44 Dose: 0.25 mg Documented By: CHUY Hydromorphone HCl (Hydromorphone Hcl 0.5 Mg/0.5 Ml Syringe) 0.25 mg IVPUSH BID [facility]; Protocol Last Admin: 05/16/23 08:08 Dose: 0.25 mg Documented By: ANJEL Metronidazole (Flagyl) 500 mg in 100 mls @ 100 mls/hr IV Q8H [facility] Last Infusion: 05/16/23 10:17 Dose: Infused Documented By: ANJEL Ceftriaxone Sodium 1 gm/ (Sodium Chloride) 50 mls @ 100 mls/hr IV 2200 [facility] Last Infusion: 05/15/23 23:04 Dose: Infused Documented By: CHEYENNE Insulin Human Lispro (Insulin Lispro 100 Unit/Ml 3 Ml Vial) 0 unit SUBCUT QIDACHS [facility]; Protocol Last Admin: 05/16/23 11:36 Dose: Not Given Documented By: ANJEL Non-Admin Reason: No Insulin Coverage Levothyroxine Sodium (Levothyroxine Sodium 112 Mcg Tablet) 112 mcg PO DAILY@0600 [facility] Last Admin: 05/16/23 06:01 Dose: 112 mcg Documented By: CHUY Multivitamins/Vitamin C (Multivitamin Tablet) 1 tab PO DAILY [facility] Last Admin: 05/16/23 08:08 Dose: 1 tab Documented By: ANJEL Omeprazole (Omeprazole 40 Mg Capsule.Dr) 40 mg PO DAILY@0630 [facility] Last Admin: 05/16/23 06:01 Dose: 40 mg Documented By: CHUY Ondansetron HCl (Ondansetron Hcl 4 Mg/2 Ml Vial) 4 mg IVPUSH Q8H PRN PRN Reason: Nausea and Vomiting Last Admin: 05/16/23 12:28 Dose: 4 mg Documented By: ANJEL Sodium Chloride (0.9 % Sodium Chloride Flush 3 Ml Syringe) 3 ml IVFLUSH QSHIFT [facility] Last Admin: 05/16/23 08:07 Dose: Not Given Documented By: ANJEL Non-Lexi Reason: IV Running Labs 05/16/23 08:44 05/16/23 08:44 Labs: Laboratory Results - last 24 hr 05/15/23 05/15/23 05/16/23 15:58 20:02 07:18 Anion Gap Estim Creat Clear Calc Estimated GFR POC Glucose 135 H 153 H 107 Random Glucose Calcium 05/16/23 05/16/23 08:44 11:17 Anion Gap 19 Estim Creat Clear Calc 66.5 Estimated GFR > 60 POC Glucose 149 H Random Glucose 98 Calcium 8.7 Assessment and Plan (1) GIB (gastrointestinal bleeding): Status: Acute (2) Sepsis: Status: Acute (3) Acute colitis: Status: Acute Plan 57 years old lady with PMH of Hypothyroid, DMII among others who presents to the hospital with abd pain, 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 Sepsis 2/2 Acute colitis, infectious vs inflammatory Leukocytosis and Tachycardia improving normal LA,Low ESR CT scan showing almost pancolitis . bleeding improved but still has diarrahe stool panel-positive EPEC ,c diff neg Gi recomened -continue Abx of Flagyl and Ceftriaxone ,ivf .if symptom persists then may be needing limited lower GI examination. GIB Likely 2/2 colitis H&H stable around 13.4/40.1 GI evaluation-start clear liquid diet, continue IV antibiotics.? If no improvement then may need endoscopy. Hypothyroidism Restart Med when confirmed Hx Diabetes type 2 Restart home meds, SSI if needed hold lantus ongoing hospitilsation need:treatment of colitis -need iv antibiotics , still symptomatic-not optimal improvement yet. Time Spent With Patient Time: Total time managing care of this patient today ____ minutes. Quality Stroke Does the patient have a stroke diagnosis?: No VTE Prior VTE?: No VTE Risk Level:: Medical - moderate - high VTE Device Contraindication: N/A - Device Ordered VTE Drug Contraindication: Treatment Not Indicated
[2023-05-16 15:26] VITALS: BP 129/74; PULSE 98; RESP 20; TEMP 36.7; O2SAT 98
[2023-05-16 15:47] LABS: Glucose, Whole Blood 136 mg/dL (60-115)
[2023-05-16] MEDS: 0.9 % Sodium Chloride Flush 3 ML SYRINGE IVFLUSH ×2 (16:11→20:17)
[2023-05-16 19:24] VITALS: BP 124/76; PULSE 102; RESP 24; TEMP 36.6; O2SAT 97
[2023-05-16 19:28] VITALS: BP 138/60; PULSE 87; RESP 20; TEMP 36.9; O2SAT 94
[2023-05-16] MEDS: Atorvastatin Calcium 10 MG TABLET PO (20:16)
[2023-05-16] MEDS: cefTRIAXone sodium 1 GM in 0.9 % Sodium Chloride 50 ML IV (20:16)
[2023-05-16 20:20] LABS: Glucose, Whole Blood 112 mg/dL (60-115)
[2023-05-17 03:34] VITALS: BP 116/67; PULSE 91; RESP 20; TEMP 36.2; O2SAT 98
[2023-05-17] MEDS: Levothyroxine Sodium 112 MCG TABLET PO (05:43)
[2023-05-17] MEDS: Omeprazole 40 MG CAPSULE.DR PO (05:43)
[2023-05-17] MEDS: ondansetron HCL 4 MG/2 ML VIAL IVPUSH (06:04)
[2023-05-17] MEDS: HYDROmorphone HCl 0.5 MG/0.5 ML SYRINGE 0.25 MG IVPUSH ×2 (06:05→08:35)
[2023-05-17 07:17] VITALS: BP 121/69; PULSE 101; RESP 18; TEMP 36.7; O2SAT 96
[2023-05-17 07:38] LABS: Glucose, Whole Blood 114 mg/dL (60-115)
[2023-05-17] MEDS: Dicyclomine HCl 10 MG CAPSULE 20 MG PO ×4 (08:34→20:31)
[2023-05-17] MEDS: Gabapentin 300 MG CAPSULE PO ×3 (08:34→20:30)
[2023-05-17] MEDS: metroNIDAZOLE/NS 500 MG/100 ML PIGGYBACK 100 MG IV ×3 (08:35→23:19)
[2023-05-17] MEDS: 0.9 % Sodium Chloride Flush 3 ML SYRINGE IVFLUSH ×2 (08:35→20:31)
[2023-05-17] MEDS: Multivitamin TABLET 1 TAB PO (08:35)
[2023-05-17] MEDS: Empagliflozin 25 MG TABLET PO (08:35)
[2023-05-17] MEDS: Simethicone 80 MG TAB.CHEW PO ×3 (10:00→16:58)
[2023-05-17] MEDS: Metoclopramide HCl 5 MG TABLET PO (10:00)
[2023-05-17 11:13] LABS: Glucose, Whole Blood 152 mg/dL (60-115)
[2023-05-17] MEDS: Insulin Lispro 100 UNIT/ML 3 ML VIAL SUBCUT ×3 (12:06→20:30)
[2023-05-17 15:16] VITALS: BP 154/83; PULSE 104; RESP 18; TEMP 37.2; O2SAT 98
[2023-05-17] MEDS: HYDROmorphone HCl 2 MG TABLET 1 MG PO ×2 (15:17→21:47)
--- NOTE | 2023-05-17 15:36 | HO.PM.IMPN ---
Subjective Subjective Date of Service: 05/17/23 Interval History: GIB Review of Systems Abdominal pain seems somewhat improving No fever or chills Physical Exam Vital Signs: Vital Signs: Last Vital Signs Temp 98.9 F 05/17/23 15:16 Pulse 104 H 05/17/23 15:16 Resp 18 05/17/23 15:16 BP 154/83 H 05/17/23 15:16 Pulse Ox 98 05/17/23 15:16 O2 Del Method Room Air 05/17/23 15:16 BMI result Body Mass Index 26.5 Appearance: Alert.? Oriented X3. cvs: rrr, [id number] . res: clear to auscultation ,no rhonchii or wheezing abd: soft? ,nt, bs present. ext pulses present , no cyanosis neuro: axo3 , nonfocal. Objective Data Active Medications Albuterol Sulfate (Albuterol Sulfate 90 Mcg 8 Gm Inhaler) 2 puff INHALE QID PRN PRN Reason: Wheezing Atorvastatin Calcium (Atorvastatin Calcium 10 Mg Tablet) 10 mg PO BEDTIME [facility] Last Admin: 05/16/23 20:16 Dose: 10 mg Documented By: STEFANO Dextrose (Dextrose 50 % 25 Gm/50 Ml Syringe) 25 gm IVPUSH Q15M PRN; Protocol PRN Reason: per Hypoglycemia Standing Ord. Dicyclomine HCl (Dicyclomine Hcl 10 Mg Capsule) 20 mg PO QIDACHS [facility] Last Admin: 05/17/23 15:17 Dose: 20 mg Documented By: ANJEL Empagliflozin (Empagliflozin 25 Mg Tablet) 25 mg PO DAILY [facility] Last Admin: 05/17/23 08:35 Dose: 25 mg Documented By: ANJEL Gabapentin (Gabapentin 300 Mg Capsule) 300 mg PO TID [facility] Last Admin: 05/17/23 15:17 Dose: 300 mg Documented By: ANJEL Glucose (Glucose Gel 15 Gm Gel..Gram.) 15 gm PO Q15M PRN; Protocol PRN Reason: per Hypoglycemia Standing Ord. Hydromorphone HCl (Hydromorphone Hcl 2 Mg Tablet) 1 mg PO Q4H PRN PRN Reason: Pain, Mild (Pain Scale 1-3) Last Admin: 05/17/23 15:17 Dose: 1 mg Documented By: ANJEL Metronidazole (Flagyl) 500 mg in 100 mls @ 100 mls/hr IV Q8H [facility] Last Admin: 05/17/23 15:18 Dose: 100 mls/hr Documented By: ANJEL Ceftriaxone Sodium 1 gm/ (Sodium Chloride) 50 mls @ 100 mls/hr IV 2200 [facility] Last Infusion: 05/16/23 22:17 Dose: Infused Documented By: STEFANO Insulin Human Lispro (Insulin Lispro 100 Unit/Ml 3 Ml Vial) 0 unit SUBCUT QIDACHS [facility]; Protocol Last Admin: 05/17/23 12:06 Dose: 2 unit Documented By: ANJEL Levothyroxine Sodium (Levothyroxine Sodium 112 Mcg Tablet) 112 mcg PO DAILY@0600 [facility] Last Admin: 05/17/23 05:43 Dose: 112 mcg Documented By: STEFANO Multivitamins/Vitamin C (Multivitamin Tablet) 1 tab PO DAILY [facility] Last Admin: 05/17/23 08:35 Dose: 1 tab Documented By: ANJEL Omeprazole (Omeprazole 40 Mg Capsule.Dr) 40 mg PO DAILY@0630 [facility] Last Admin: 05/17/23 05:43 Dose: 40 mg Documented By: STEFANO Ondansetron HCl (Ondansetron Hcl 4 Mg/2 Ml Vial) 4 mg IVPUSH Q8H PRN PRN Reason: Nausea and Vomiting Last Admin: 05/17/23 06:04 Dose: 4 mg Documented By: STEFANO Simethicone (Simethicone 80 Mg Tab.Chew) 80 mg PO QIDWMHS PRN PRN Reason: Gas Last Admin: 05/17/23 12:40 Dose: 80 mg Documented By: ANJEL Sodium Chloride (0.9 % Sodium Chloride Flush 3 Ml Syringe) 3 ml IVFLUSH QSHIFT [facility] Last Admin: 05/17/23 15:20 Dose: Not Given Documented By: ANJEL Non-Admin Reason: IV Running Labs 05/16/23 08:44 05/16/23 08:44 Labs: Laboratory Results - last 24 hr 05/16/23 05/16/23 05/17/23 15:28 20:11 07:35 POC Glucose 136 H 112 114 05/17/23 11:06 POC Glucose 152 H Assessment and Plan (1) GIB (gastrointestinal bleeding): Status: Acute (2) Acute colitis: Status: Acute Plan 57 years old lady with PMH of Hypothyroid, DMII among others who presents to the hospital with abd pain, 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 bleeding improved but still has diarrahe stool panel-positive EPEC ,c diff neg Gi recomened -continue Abx of Flagyl and Ceftriaxone (05/13),ivf .if symptom persists then may be needing limited lower GI examination. GIB Likely 2/2 colitis H&H stable around 13.4/40.1 GI evaluation-start clear liquid diet, continue IV antibiotics.? If no improvement then may need endoscopy. Hypothyroidism Restart Med when confirmed Hx Diabetes type 2 Restart home meds, SSI if needed hold lantus ongoing hospitilsation need:treatment of colitis -need iv antibiotics , still symptomatic-not optimal improvement yet. Time Spent With Patient Time: Total time managing care of this patient today ____ minutes. Quality Stroke Does the patient have a stroke diagnosis?: No VTE Prior VTE?: No VTE Risk Level:: Medical - moderate - high VTE Device Contraindication: N/A - Device Ordered VTE Drug Contraindication: Treatment Not Indicated
[2023-05-17 16:02] LABS: Glucose, Whole Blood 174 mg/dL (60-115)
[2023-05-17 19:20] VITALS: BP 153/87; PULSE 101; RESP 18; TEMP 36.1; O2SAT 95
[2023-05-17 20:22] LABS: Glucose, Whole Blood 164 mg/dL (60-115)
[2023-05-17] MEDS: Atorvastatin Calcium 10 MG TABLET PO (20:30)
[2023-05-17] MEDS: cefTRIAXone sodium 1 GM in 0.9 % Sodium Chloride 50 ML IV (22:01)
[2023-05-18] MEDS: Simethicone 80 MG TAB.CHEW PO ×2 (03:41→08:46)
[2023-05-18] MEDS: HYDROmorphone HCl 2 MG TABLET 1 MG PO ×2 (03:41→08:47)
[2023-05-18] MEDS: ondansetron HCL 4 MG/2 ML VIAL IVPUSH (03:46)
[2023-05-18 04:00] VITALS: BP 140/88; PULSE 84; RESP 16; TEMP 36.6; O2SAT 96
[2023-05-18] MEDS: Levothyroxine Sodium 112 MCG TABLET PO (05:59)
[2023-05-18] MEDS: Omeprazole 40 MG CAPSULE.DR PO (05:59)
[2023-05-18 07:26] VITALS: BP 136/78; PULSE 97; RESP 18; TEMP 36.8; O2SAT 96
[2023-05-18 07:40] LABS: Glucose, Whole Blood 134 mg/dL (60-115)
[2023-05-18] MEDS: Multivitamin TABLET 1 TAB PO (08:46)
[2023-05-18] MEDS: Empagliflozin 25 MG TABLET PO (08:46)
[2023-05-18] MEDS: Gabapentin 300 MG CAPSULE PO (08:46)
[2023-05-18] MEDS: Dicyclomine HCl 10 MG CAPSULE 20 MG PO ×2 (08:46→12:07)
[2023-05-18] MEDS: metroNIDAZOLE/NS 500 MG/100 ML PIGGYBACK 100 MG IV (08:47)
[2023-05-18] MEDS: 0.9 % Sodium Chloride Flush 3 ML SYRINGE IVFLUSH (08:47)
--- NOTE | 2023-05-18 10:45 | MHC.CM.PN ---
order for home, self care. CM acknowledge.
[2023-05-18 11:47] LABS: Glucose, Whole Blood 170 mg/dL (60-115)
[2023-05-18] MEDS: Insulin Lispro 100 UNIT/ML 3 ML VIAL SUBCUT (12:07)
[2023-05-18] MEDS: Amoxicillin/Potassium Clav 875 MG TABLET PO (12:07)
--- NOTE | 2023-05-18 12:09 | P.DS_ITS ---
DS: Providers Provider Date of Service: 05/18/23 Date of admission: 05/13/23 01:43 Date of discharge: 05/18/23 Primary care physician: SANKET Desai Consults: 05/13/23 01:43 Consult to Gastroenterology Routine Consulting Provider: Chava Garibay Reason for consultation: Colitis, questionable new IBD ? +ve Family Hx. 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 The patient reports feeling well this morning as she woke up and had coffee before going to the bathroom for BM but she did not leave for couple of hours as she had multiple soft bowel movements associated with abdominal pain at the end, chills and nausea. She vomited few times but manily has nausea. in the afternoon she noticed blood with the stool (she was not looking before) so she decided to come to the hospital. Denies any rash, fever, SOB, palpitations, chest pain or urinary symptoms. Had dinner with her last night, he has no symptoms. no food from outside or reheated meals. No Previous history of similar incidents. Her cousin (she calls her mother) has Ulcerative colitis. Her mother of liver cancer. In ED, a CT scan showed non-specific colitis with no source of bleeding identified as she is occult positive. with dehydration picture with high WBCs and RBCs. Treated with IVF and Abx and admitted for further eval. Hospital course: Patient was admitted for abdominal pain,bloody diarrhae-found to have pancolitis-started on IV antibiotics, checked stool panel as well as C diff: C diff test negative, enetropathogenic ecoli positive:seen by Gi -recomended to continue iv antibiotics-presentation seems consistent with acute infectious colitisless likely ischemic, IBD.Patient diarrhea, abdominal pain seems to be improved significantly with iv antibiotics ,hydration . patient will be going home with p.o. augmentIN( antibiotics). plan: Please complete Augmentin 875 mg 1 tab by mouth twice daily for 7 days. Follow-up with PCP and GI out patiently Above management discussed with the patient in detail length she understand and in agreement with the above plan, time spent 50 minutes and 50% time spent on counseling. Time Spent with Patient Time attestation: Total time managing care of this patient today ____ minutes. Discharge coordination time: Greater than 30 minutes Quality: Safe Use of Opioids Does Pt have an Active Cancer Diagnosis on the Problem List?: No Quality: Stroke Does the patient have a stroke diagnosis?: No Physical Exam Vital Signs: Vital Signs: Last Vital Signs Temp 98.3 F 05/18/23 07:26 Pulse 97 05/18/23 07:26 Resp 18 05/18/23 07:26 BP 136/78 05/18/23 07:26 Pulse Ox 96 05/18/23 07:26 O2 Del Method Room Air 05/18/23 07:26 BMI result Body Mass Index 26.5 Appearance: Alert.? Oriented X3. cvs: rrr, [id number] . res: clear to auscultation ,no rhonchii or wheezing abd: soft? ,nt, bs present. ext pulses present , no cyanosis neuro: axo3 , nonfocal. DS: Data Data Completed and Pending Labs on day of discharge: Laboratory Results - last 24 hr 05/17/23 05/17/23 05/18/23 15:55 20:16 07:24 POC Glucose 174 H 164 H 134 H 05/18/23 11:44 POC Glucose 170 H Imaging Chest x-ray: Radiologist's impression: ITS Impressions Abdomen/Pelvis CT 05/12/23 23:49 IMPRESSION: Diffuse submucosal thickening of the colon consistent with nonspecific colitis. Side of the gastrointestinal hemorrhage is not defined by this exam. Fleischner guidelines were followed. Abdomen/Pelvis CT 05/15/23 13:00 IMPRESSION: Diffuse mural thickening involving distal descending, sigmoid colon and the rectum suggestive of colitis. Fleischner guidelines were followed. Discharge Plan Discharge Anticipated Discharge Date/Time: 05/18/23 10:32 Patient Disposition: Home, Self-Care Discharge Diagnosis: acute infectious colitis Referrals: Delma Kimbrough PA [Primary Care Provider] - 1 Week Discharge Medications: New amoxicillin-pot clavulanate 875-125 mg Tablet 1 tab PO Q12H Qty: 14 0RF Continued atorvastatin 10 mg tablet 10 mg PO BEDTIME omeprazole 40 mg capsule,delayed release(DR/EC) 40 mg PO DAILY estradiol 1 mg tablet 1 mg PO BID gabapentin 300 mg capsule 300 mg PO TID albuterol sulfate 90 mcg/actuation HFA aerosol inhaler 2 puff INHALATION QID PRN (Reason: Wheezing) levothyroxine 112 mcg tablet 112 mcg PO DAILY Jardiance 25 mg tablet 25 mg PO DAILY Soliqua 100/33 100 unit-33 mcg/mL insulin pen 40 unit subcut DAILY multivitamin Tablet 1 tab PO DAILY aspirin 81 mg Tablet,Delayed Release (Dr/Ec) 81 mg PO DAILY Discharge Orders: Discharge Order (Routine); Ordered 05/18/23 Ordered By: Rick Kline Diet: Advance to usual diet Activity on Discharge: As tolerated Stand Alone Forms: Patient Portal Discharge page Care Plan Goals: Patient was admitted for abdominal pain,bloody diarrhae-found to have pancolitis-started on IV antibiotics, checked stool panel as well as C diff: C diff test negative, enetropathogenic ecoli positive:Patient diarrhea, abdominal pain seems to be improved significantly with iv antibiotics ,hydration . patient will be going home with p.o. augmentIN( antibiotics). Please complete Augmentin 875 mg 1 tab by mouth twice daily for 7 days. Follow-up with PCP and GI out patiently Health Concerns: As above. Plan of Treatment: As above. Assessment: As above.
== END 2023-05-18 12:54 | disposition home or self-care (01) | DRG 872 ==
LOC: HO.ED 22:30 → HO.EDOVER 05-13 02:08 → HO.IMC 05-13 17:38
PROVIDERS: Registered Nurse Emergency; Admitting Provider Student in an Organized Health Care Education/Training Program; Emergency Provider Emergency Medicine; PCP Physician Assistant Medical; Visit Provider Internal Medicine
DX: A41.9 Sepsis, unspecified organism (principal); A04.0 Enteropathogenic Escherichia coli infection; K92.1 Melena; E03.9 Hypothyroidism, unspecified; Z87.891 Personal history of nicotine dependence; Z79.4 Long term (current) use of insulin; Z79.82 Long term (current) use of aspirin; Z79.84 Long term (current) use of oral hypoglycemic drugs; Z79.890 Hormone replacement therapy; Z79.899 Other long term (current) drug therapy
CPT/HCPCS: 36415; 74177; 74178; 80048; 80053; 81001; 81003; 82272; 82947; 83690; 84702; 85014; 85018; 85025; 85027; 85610; 85652; 86140; 86850; 86900; 86901; 87493; 87507; 93005; 99285; J0696; J1170; J1956; J2405; J2550; J3010; Q9967

== ENCOUNTER → 2023-05-13 01:43 | Outpatient (BNV) | payer OTHER, SELFPAY | PROVIDERS: Admitting Provider Student in an Organized Health Care Education/Training Program; Emergency Provider Emergency Medicine; PCP Physician Assistant Medical; Visit Provider Student in an Organized Health Care Education/Training Program | DX: K92.2 Gastrointestinal hemorrhage, unspecified (principal); K52.9 Noninfective gastroenteritis and colitis, unspecified | CPT/HCPCS: 99223; 99232; 99239; 99499 ==

== ENCOUNTER 2023-10-12 21:26 | Emergency (ER) | payer OTHER, SELFPAY ==
--- NOTE | 2023-10-12 | ECG_ITS ---
Test Reason : ABD PAIN Blood Pressure : / mmHG Vent. Rate : 081 BPM Atrial Rate : 081 BPM P-R Int : 150 ms QRS Dur : 086 ms QT Int : 406 ms P-R-T Axes : 049 012 059 degrees QTc Int : 471 ms Normal sinus rhythm Normal ECG When compared with ECG of 12-OCT-2023 21:33, changes of anterior infarct not seen Referred By: Suha Spence Electronically Signed By:CHRISTIAN DAVILA
--- NOTE | ~2023-10-12 | CT_ITS ---
EXAMINATION: CT ANGIOGRAM CHEST, ABDOMEN AND PELVIS WITH CONTRAST CLINICAL INFORMATION: Severe chest and abdominal pain radiating to back COMPARISON: 05/15/2023 TECHNIQUE: Multidetector volumetric imaging was performed through the chest, abdomen and pelvis following the administration of 85 mL of Omnipaque 350 intravenous contrast per CTA protocol. Sagittal and coronal reformatted images were obtained on the technologist's workstation. Multiplanar MIP volume rendering provided. This CT examination was performed using dose optimization techniques as appropriate, variously including the following: *Automated exposure control *Adjustment of mA and/or kV according to patient size (this includes techniques or standardized protocols for targeted exams where dose is matched to indication/reason for exam; i.e. extremities or head) *Use of iterative reconstruction technique DLP: 537 mGy-cm FINDINGS: CHEST: Vasculature: Assessment of the ascending aorta is suboptimal due to motion artifact. Within these limitations, no findings to suggest thoracic aortic dissection. Ascending aorta measures approximately 2.6 cm in diameter. There is scattered atherosclerotic plaque and mild calcification along the descending thoracic aorta. No central pulmonary embolus is seen. Lungs: Mild upper lobe predominant emphysema. No regions of consolidation bilaterally. Mild bronchial wall thickening noted in the right lower lobe. Nodule along the right minor fissure measuring 4 mm suggestive of a lymph node on image [id number]. Mediastinum: Thyroid gland appears diminutive. There are subcentimeter mediastinal lymph nodes within the range of normal variation. Cardiac size is within normal limits; no pericardial effusion. No significant coronary artery calcifications. Pleura: No pneumothorax or pleural effusion. Chest Wall/Axilla: Unremarkable. ABDOMEN/PELVIS: Liver, Gallbladder, Biliary Tree: The liver is normal in size, shape, and attenuation. No focal hepatic lesion or biliary ductal dilatation is present. Gallbladder is not visualized. Pancreas: Unremarkable. Spleen: Unremarkable. Adrenal Glands: Unremarkable. Kidneys and Ureters: Bilateral nephrograms are symmetric. No hydronephrosis or obstructing calculus identified. Bladder: Unremarkable. Gastrointestinal Tract: No evidence of bowel obstruction. There is prominent mural enhancement of several small bowel loops most notably in the left abdomen, which could be indicative of an enteritis. The appendix is unremarkable. No free fluid or free air is seen. Abdominal Wall: No hernia is demonstrated. Lymphovascular Structures: Lymph nodes: Normal. Vascular: No evidence of aortic aneurysm or dissection. There is atherosclerotic plaque and calcification along the aorta and bilateral common iliac arteries. The celiac, superior mesenteric, inferior mesenteric, and bilateral renal arteries are patent. Accessory renal arteries are noted bilaterally. Bilateral iliac arteries are patent. Pelvic Viscera: Patient is status post hysterectomy. OSSEOUS STRUCTURES: Scattered endplate osteophytes noted in the spine. CT/CT angio abdomen pelvis IMPRESSION: 1. No evidence of aortic dissection. Atherosclerotic plaque and calcification. 2. Prominent mural enhancement of several small bowel loops most notably in the left abdomen, which could be indicative of an enteritis. 3. Nodule along the right minor fissure measuring 4 mm, most suggestive of a lymph node. According to the UPDATED 2017 Fleischner Society recommendations, the advised follow-up imaging for solid nodules < 6 mm is: LOW RISK PATIENT: No routine follow-up. HIGH RISK PATIENT: Optional CT at 12 months.
[2023-10-12 21:54] VITALS: BP 157/79; PULSE 82; RESP 18; TEMP 36.8; O2SAT 97; BMI 27.1
[2023-10-12 22:14] LABS: MANUAL DIFF FLAG NO
[2023-10-12 22:15] LABS: Basophils Percent Auto 0.4 % (0-2); Eosinophils Percent Auto 0.5 % (0-4); Hematocrit 43.6 % (37.0-47.0); Hemoglobin 15.3 g/dl (12.0-16.0); Imm Gran Abs Auto 0.07 X10*3/uL (0.00-0.03); Imm Gran Pct Auto 0.9 % (0.0-0.4); Lymphocytes Absolute Auto 2.1 X10*3/uL (1.2-4.9); Lymphocytes Percent Auto 26.2 % (20-40); Mean Corpuscular HGB Conc 35.1 g/dl (31.0-35.0); Mean Corpuscular Hemoglobin 34.2 pg (27.0-33.0); Mean Corpuscular Volume 97.3 fL (80.0-98.0); Mean Platelet Volume 10.8 fL (9.4-12.3); Monocytes Absolute Auto 0.5 X10*3/uL (0.1-1.2); Monocytes Percent Auto 5.8 % (2-11); Neutrophils Absolute Auto 5.3 x10*3/uL (2.0-8.3); Neutrophils Percent Auto 66.2 % (45-73); Platelet Count 188 X10*3/uL (160-400); Red Blood Count 4.48 X10*6/uL (4.20-5.50)
[2023-10-12 22:29] LABS: Alanine Aminotransferase 19 U/L (0-31); Albumin Level 4.5 g/dL (3.5-5.0); Alkaline Phosphatase 49 U/L (39-117); Anion Gap 14 (12-20); Aspartate Amino Transferase 14 U/L (5-31); Bilirubin Direct 0.2 mg/dL (0.0-0.5); Bilirubin Total 0.5 mg/dL (0.0-1.0); Blood Urea Nitrogen 17 mg/dL (9-16); Calcium 9.7 mg/dL (8.4-10.2); Carbon Dioxide 27 mmol/L (22-29); Chloride 105 mmol/L (96-108); Creatinine Clr Calc Pharmacy 53.1; Estimated Glomerular Filt Rate 54; Glucose Random 230 mg/dL (60-115); Lipase 14 U/L (8-78); Potassium 3.8 mmol/L (3.3-5.1); Sodium 142 mmol/L (135-145); Total Protein 7.1 g/dL (6.5-8.0)
[2023-10-12 22:40] LABS: Troponin-I High Sensitivity < 2.7 ng/L (<3.5-17.0)
--- OUTSIDE RECORDS SUMMARY | 2023-10-13 03:32 | XMS_ITS | Continuity of Care Document ---
Author Name Unknown Organization [facility] Address [address], [address] [place] [address]- Care Team Providers Care Quickbooks Bookkeeper Name Role Phone Delma Nava Primary Care Physician Encounter [facility] Date(s): 11/14/21 - 12/14/21 [facility] [address], [address] [place], [place] [address] Allergies, Adverse Reactions, Alerts Substance Reaction Severity Status codeine hyperventilates Active morphine severe vomiting Active lisinopril Nausea and vomiting Active Percocet Dizziness Nausea and vomiting Active Percodan Dizziness Nausea and vomiting Active Demerol HCl vomiting Active Bee Stings Active Medications Advair Diskus 250 mcg-50 mcg inhalation powder 1, inhalation, Inhalation, 2 times a day, rinse mouth and throat after use, Refills 0, Maintenance,07/11/21 10:34:00 EDT, Powder Start Date: 07/11/21 Status: Ordered Albuterol See Instructions, 0 Refills, Maintenance, 02/22/15 13:51:53 Start Date: 02/22/15 Status: Ordered amitriptyline 10 mg oral tablet 1 tablet = 10 mg, By Mouth, Daily at bedtime, 0 Refills, Maintenance, 02/22/15 13:51:27 Start Date: 02/22/15 Status: Ordered aspirin 81 mg oral tablet 1 tablet = 81 mg, By Mouth, Daily, # 30 tablet, 0 Refills, Maintenance, 02/22/15 13:50:56, Tablet Start Date: 02/22/15 Status: Ordered atorvastatin 10 mg oral tablet 1 tablet = 10 mg, By Mouth, Daily, 0 Refills, Maintenance, 06/14/21 8:40:00 EDT, Partial fill upon patient request if the prescription is for a schedule II opioid drug. Start Date: 06/14/21 Status: Ordered Estradiol 0 Refills, Maintenance, 02/22/15 13:50:10 Start Date: 02/22/15 Status: Ordered Jardiance 10 mg oral tablet 1 tablet = 10 mg, By Mouth, Daily in AM, # 30 tablet, 0 Refills, Maintenance, 07/11/21 10:33:00 EDT, Tablet, Partial fill upon patient request if the prescription is for a schedule II opioid drug. Start Date: 07/11/21 Status: Ordered levothyroxine 0.075 mg oral tablet 0 Refills, Maintenance, 07/11/21 10:32:00 EDT, Partial fill upon patient request if the prescription is for a schedule II opioid drug. Start Date: 07/11/21 Status: Ordered losartan 50 mg oral tablet 50 mg, 1, tablet, By Mouth, Daily, Refills 0, Maintenance, 06/14/21 8:41:00 EDT, Partial fill upon patient request if the prescription is for a schedule II opioid drug. Start Date: 06/14/21 Status: Ordered meloxicam 15 mg oral tablet 1 tablet = 15 mg, By Mouth, Daily, 0 Refills, Maintenance, 06/14/21 8:41:00 EDT, Partial fill upon patient request if the prescription is for a schedule II opioid drug. Start Date: 06/14/21 Status: Ordered Multivitamin Daily, 0 Refills, Maintenance, 06/14/21 8:42:00 EDT, Partial fill upon patient request if the prescription is for a schedule II opioid drug. Start Date: 06/14/21 Status: Ordered omeprazole 20 mg oral enteric coated capsule 1 capsule, By Mouth, 2 times a day, # 30 capsule, 0 Refills, [id number], 158, cm, 08/07/21 13:48:00 EST, Height, 71.4, kg, 07/11/21 10:13:00 EDT, Dry Weight Start Date: 09/03/21 Status: Ordered Ropinirole By Mouth, 0 Refills, Maintenance, 06/14/21 8:41:00 EDT, Partial fill upon patient request if the prescription is for a schedule II opioid drug. Start Date: 06/14/21 Status: Ordered Soliqua 100/33 subcutaneous solution = 15 units, Subcutaneous Infusion, 0 Refills, Maintenance, 07/11/21 10:34:00 EDT, Partial fill uponpatient request if the prescription is for a schedule II opioid drug. Start Date: 07/11/21 Status: Ordered vitamin E 400 iu oral capsule 1 capsule = 400 International_Units, By Mouth, 2 times a day, 0 Refills, Maintenance, 02/22/15 13:52:35 Start Date: 02/22/15 Status: Ordered Problem List Condition Effective Dates Status Health Status Inform ant Asthma(Confirmed) Active Fatty liver(Confirmed) Active Gastritis(Confirmed) Active Arturo thyroiditis(Confirmed) Active HTN - Hypertension(Confirmed) Active Hyperlipidemia(Confirmed) Active Long-term current use of insulin(Confirmed) 02/19/21 Active Urinary incontinence, mixed(Confirmed) Active Osteopenia(Confirmed) Active Tubular adenoma(Confirmed) 02/02/21 Active Diabetes mellitus type 2(Confirmed) Active Social History Social History Type Response Smoking Status Former smoker, quit more than 30 days ago entered on: 11/13/21 Sex
--- OUTSIDE RECORDS SUMMARY | 2023-10-13 03:32 | XMS_ITS | Continuity of Care Document ---
Author Name Unknown Organization [facility] Address [address] [place] [address], [address] [place] [address]- Care Team Providers Care Consulting Hr Professional Name Role Phone Delma Nava Primary Care Physician Encounter [facility] Date(s): 04/05/22 - 05/05/22 [facility] [address] [place] [address] Drive, [address] [place], [place] [address] Allergies, Adverse Reactions, Alerts Substance Reaction Severity Status codeine hyperventilates Active meperidine Active morphine severe vomiting Active lisinopril Nausea and vomiting Active Percocet Dizziness Nausea and vomiting Active Percodan Dizziness Nausea and vomiting Active Demerol HCl vomiting Active Bee Stings Active Medications Albuterol See Instructions, 0 Refills, Maintenance, 02/22/15 13:51:53 Start Date: 02/22/15 Status: Ordered atorvastatin 10 mg oral tablet 1 tablet = 10 mg, By Mouth, Daily, 0 Refills, Maintenance, 06/14/21 8:40:00 EDT, Partial fill upon patient request if the prescription is for a schedule II opioid drug. Start Date: 06/14/21 Status: Ordered Estradiol = 1 mg, By Mouth, Daily, 0 Refills, Maintenance, 02/22/15 13:50:10 EDT Start Date: 02/22/15 Status: Ordered Gabapentin = 300 mg, By Mouth, 3 times a day, 0 Refills, Maintenance, 02/20/22 10:30:00 EDT, Partial fill uponpatient request if the prescription is for a schedule II opioid drug. Start Date: 02/20/22 Status: Ordered Jardiance 10 mg oral tablet [...] opioid drug. Start Date: 07/11/21 Status: Ordered meloxicam 15 mg oral tablet [...] a day, # 30 capsule, 0 Refills, [id number], 158, cm, 08/07/21 13:48:00 EST, Height, 71.4, kg, 07/11/21 10:13:00 EDT, Dry Weight Start Date: 09/03/21 Status: Ordered Soliqua 100/33 subcutaneous solution = 40 units, Subcutaneous Infusion, 0 Refills, Maintenance, 07/11/21 10:34:00 EDT, Partial fill uponpatient request if the prescription is for a schedule II opioid drug. Start Date: 07/11/21 Status: Ordered Problem List Condition Effective Dates Status Health Status Inform ant Asthma(Confirmed) Active Fatty liver(Confirmed) Active Gastritis(Confirmed) Active Arturo thyroiditis(Confirmed) Active HTN - Hypertension(Confirmed) Active Hyperlipidemia(Confirmed) Active Hypothyroidism(Confirmed) Active Long-term current use of insulin(Confirmed) 02/19/21 Active Urinary incontinence, mixed(Confirmed) Active Osteopenia(Confirmed) Active RLS (restless legs syndrome)(Confirmed) Active Scoliosis(Confirmed) Active Tinnitus(Confirmed) Active Tubular adenoma(Confirmed) 02/02/21 Active DM2 (diabetes mellitus, type 2)(Confirmed) Active Social History Social History Type Response Smoking Status Former smoker, quit more than 30 days ago entered on: 11/13/21 Sex Care Team Personnel Name: Delma Nava Address: [address] [place] [id number]
--- OUTSIDE RECORDS SUMMARY | 2023-10-13 03:32 | XMS_ITS | Continuity of Care Document ---
Author Name Unknown Organization [facility] Address [address] [place] [address], [address] [place] [address]- Care Team Providers Care Parts Coordinator Name Role Phone Delma Nava Primary Care Physician Encounter [facility] [id number] Date(s): 02/01/22 - 03/13/22 [facility] [address] [place] [address] Drive, [address] [place], [place] [address] Attending Physician: Marge Lam MD Referring Physician: Delma Nava Allergies, Adverse Reactions, Alerts Substance Reaction Severity Status codeine hyperventilates Active meperidine Active morphine severe vomiting Active lisinopril Nausea and vomiting Active Percocet Dizziness Nausea and vomiting Active Percodan Dizziness Nausea and vomiting Active Demerol HCl vomiting Active Bee Stings Active Medications Albuterol See Instructions, 0 Refills, Maintenance, 02/22/15 13:51:53 Start Date: 02/22/15 Status: Ordered aspirin 81 [...] a day, # 30 capsule, 0 Refills, [facility] [id number], 158, cm, 08/07/21 13:48:00 EST, [...]
--- OUTSIDE RECORDS SUMMARY | 2023-10-13 03:32 | XMS_ITS | Continuity of Care Document ---
Author Name Unknown Organization [facility] Address [address] [place] [address]- Care Team Providers Care Boiling House Oiler Name Role Phone Delma Nava Primary Care Physician Encounter [facility] [id number] Date(s): 02/15/21 - 06/15/21 [facility] [address] [place] [address]- Attending Physician: Salo Lewis MD Admitting Physician: Salo Lewis MD Referring Physician: Delma Nava Allergies, Adverse Reactions, Alerts Substance Reaction Severity Status codeine hyperventilates Active morphine severe vomiting Active Bee Stings Active Demerol HCl vomiting Active Medications Albuterol See Instructions, 0 Refills, [...] 02/22/15 13:50:10 Start Date: 02/22/15 Status: Ordered glimepiride 2 mg oral tablet 1 tablet = 2 mg, By Mouth, Daily, # 30 tablet, 0 Refills, Maintenance, 02/22/15 14:11:06, Tablet Start Date: 02/22/15 Status: Ordered levothyroxine 150 mcg (0.15 mg) oral tablet 1 tablet = 150 mcg, By Mouth, Daily, # 30 tablet, 0 Refills, Maintenance, 02/22/15 13:49:47, Tablet Start Date: 02/22/15 Status: Ordered losartan 50 mg oral tablet [...] opioid drug. Start Date: 06/14/21 Status: Ordered metformin 500 mg oral tablet See Instructions, 2 tabs in morning, 3 tabs in the evening By Mouth 2 times a day, 0 Refills, Maintenance, 02/22/15 14:09:33 Start Date: 02/22/15 Status: Ordered Multivitamin Daily, 0 Refills, Maintenance, 06/14/21 8:42:00 EDT, Partial fill upon patient request if the prescription is for a schedule II opioid drug. Start Date: 06/14/21 Status: Ordered Percocet-5/325 325 mg-5 mg oral tablet 1 tablet, By Mouth, Every 4 to 6 hours, PRN Pain, (not to exceed 4000 mg acetaminophen per day), # 15 tablet, 0 Refills, Maintenance, Tablet Start Date: 10/31/09 Status: Ordered Ropinirole By Mouth, 0 Refills, Maintenance, 06/14/21 8:41:00 EDT, Partial fill upon patient request if the prescription is for a schedule II opioid drug. Start Date: 06/14/21 Status: Ordered simvastatin 20 mg oral tablet 1 tablet = 20 mg, By Mouth, Daily at bedtime, # 30 tablet, 0 Refills, Maintenance, 02/22/15 13:49:13, Tablet Start Date: 02/22/15 Status: Ordered vitamin E 400 iu oral capsule 1 capsule = 400 International_Units, By Mouth, 2 times a day, 0 Refills, Maintenance, 02/22/15 13:52:35 Start Date: 02/22/15 Status: Ordered Problem List Condition Effective Dates Status Health Status Inform ant Tubular adenoma(Confirmed) 02/02/21 Active Diabetes mellitus type 2, uncontrolled(Confirmed) Active
--- OUTSIDE RECORDS SUMMARY | 2023-10-13 03:32 | XMS_ITS | Continuity of Care Document ---
Author Name Unknown Organization [facility] Address [address] [place] [address]- Care Team Providers Care Wing Mailer Machine Operator Name Role Phone Delma Nava Primary Care Physician Encounter 01/23/22 - 01/30/22 [facility] [address], [address] [place] [address]- Attending Physician: Delma Nava Admitting Physician: Delma Nava Referring Physician: Delma Nava Allergies, Adverse Reactions, [...] a day, # 30 capsule, 0 Refills, [id number], 158, cm, 08/07/21 13:48:00 EST, [...]
--- OUTSIDE RECORDS SUMMARY | 2023-10-13 03:32 | XMS_ITS | Continuity of Care Document ---
Author Name Unknown Organization [facility] Address [address] [place] [address], [address] [place] [address]- Care Team Providers Care Digital Business Analyst Name Role Phone Delma Nava Primary Care Physician Encounter [facility] Date(s): 04/24/22 - 05/01/22 [facility] [address] [place] [address] Drive, [address] [place], [place] [address] Attending Physician: Prasanna Toledo MD Referring Physician: Perez Nava Allergies, Adverse Reactions, Alerts Substance Reaction Severity Status codeine hyperventilates Active meperidine Active morphine severe vomiting Active lisinopril Nausea and vomiting Active Percodan Dizziness Nausea and vomiting Active Demerol HCl vomiting Active Bee Stings Active Percocet Dizziness Nausea and vomiting Active Medications Albuterol See Instructions, 0 [...] a day, # 30 capsule, 0 Refills, [id number], 158, cm, 08/07/21 13:48:00 [...] Active DM2 (diabetes mellitus, type 2)(Confirmed) Active Vital Signs Most recent to oldest [Reference Range]: 1 Height 160.5 cm (04/24/22 11:26 AM) Weight 70.9 kg (04/24/22 11:26 AM) Body Mass Index [18.5-24.99] 27.52 *H* (04/24/22 11:26 AM) Social History Social History Type Response Smoking Status Former smoker, quit more than 30 days ago entered on: 11/13/21 Sex
--- OUTSIDE RECORDS SUMMARY | 2023-10-13 03:32 | XMS_ITS | Continuity of Care Document ---
Author Name Unknown Organization [facility] [employer] Address [address], 4t [place] [address]- Care Team Providers Care Director Pharmaceutical Name Role Phone Delma Nava [facility] Phys[id number]15[facility] - 01/25/22 [facility] [employer] [facility] [address], [address] [place], [place] [address] Attending Physician: Arpil Sibley MD Admitting Physician: April Sibley MD Referring Physician: April Sibley MD Allergies, Adverse Reactions, Alerts Substance Reaction Severity [...] a day, # 30 capsule, 0 Refills, [id number], 158, cm, 08/07/21 13:48:00 [...]
--- OUTSIDE RECORDS SUMMARY | 2023-10-13 03:32 | XMS_ITS | Continuity of Care Document ---
Author Name Unknown Organization [facility] [employer] Address [address], 4t [place] [address]- Care Team Providers Care Ticket Seller Name Role Phone Delma Nava Primary Care Physician [id number] Date(s): 12/26/21 - 01/25/22 [facility] [employer] [facility] [address], [address] [place], [place] [address] Attending Physician: Admindigo, Sneha Admitting Physician: Admtr, [id number] Referring Physician: Admtr, Ar8 Allergies, Adverse Reactions, Alerts Substance Reaction Severity [...] a day, # 30 capsule, 0 Refills, [id number], 158, cm, 08/07/21 13:48:00 [...]
--- OUTSIDE RECORDS SUMMARY | 2023-10-13 03:32 | XMS_ITS | Continuity of Care Document ---
Author Name Unknown Organization [facility] Address [address] [place] [address], [address] [place] [address]- Care Team Providers Care Staff Editor Name Role Phone Delma Nava Primary Care Physician En[place] [facility] [place] Date(s): 04/24/22 - 05/24/22 [facility] [address] [place] [address], [address] [place] [address]- Attending Physician: Sneha Holman Admitting Physician: AdmtrSneha Referring Physician: Admtr ArDarlene Allergies, Adverse Reactions, Alerts Substance Reaction Severity Status codeine hyperventilates Active meperidine Active morphine severe vomiting Active lisinopril Nausea and vomiting Active Bee Stings Active Demerol HCl vomiting Active Percocet Dizziness Nausea and vomiting Active Percodan Dizziness Nausea and vomiting Active Medications Albuterol [...] a day, # 30 capsule, 0 Refills, [id number], 158, cm, 08/07/21 13:48:00 [...] Care Team Personnel Name: Delma Nava Address: [address] [place] [address]
--- OUTSIDE RECORDS SUMMARY | 2023-10-13 03:32 | XMS_ITS | Continuity of Care Document ---
Author Name Unknown Organization [facility] Address [address] [place] [address]- Care Team Providers Care Hand Endband Cutter Name Role Phone Delma Nava Primary Care Physician [place] [facility] [place]s): 03/08/22 - 04/07/22 [facility] [address] [place], [place] [address] Attending Physician: Sneha Holman Admitting Physician: Admtr, Sneha Referring Physician: Admtr, Ar8 Allergies, Adverse Reactions, Alerts Substance Reaction Severity Status codeine hyperventilates Active meperidine Active morphine severe vomiting Active lisinopril Nausea and vomiting Active Percocet Dizziness Nausea and vomiting Active Percodan Dizziness Nausea and vomiting Active Demerol HCl vomiting Active Bee Stings Active Medications acetaminophen-HYDROcodone 325 mg-5 mg oral tablet 1 tablet, By Mouth, Every 6 hours, PRN as needed for pain, for 7 days, # 28 tablet, 0 Refills, Acute 04/12/22 12:22:00 EDT, 04/05/22 12:22:00 EDT, Tablet, [id number], Partial fill upon patient request if the prescription is for a schedule I... Start Date: 04/05/22 Stop Date: 04/12/22 Status: Ordered Albuterol See Instructions, 0 Refills, Maintenance, 02/22/15 13:51:53 Start Date: 02/22/15 Status: Ordered atorvastatin 10 mg oral tablet 1 tablet = 10 mg, By Mouth, Daily, 0 Refills, Maintenance, 06/14/21 8:40:00 EDT, Partial fill upon patient request if the prescription is for a schedule II opioid drug. Start Date: 06/14/21 Status: Ordered cyclobenzaprine 10 mg oral tablet 10 mg, 1, tablet, By Mouth, Every 8 hours, PRN, for 14 days, Muscle Spasms, # 42 tablet, Refills 0,Tot. Refills 0, Acute 04/11/22 17:11:00 EDT, Other, 03/28/22 17:11:00 EDT, Route to Pharmacy Electronically, [id number], Partial fill upon p... Start Date: 03/28/22 Stop Date: 04/11/22 Status: Ordered Estradiol = 1 mg, By [...] a day, # 30 capsule, 0 Refills, [id number], 158, cm, 08/07/21 [...]
--- OUTSIDE RECORDS SUMMARY | 2023-10-13 03:32 | XMS_ITS | Continuity of Care Document ---
Author Name Unknown Organization [facility] Address [address] [place] [address], [address] [place] [address]- Care Team Providers Care Travel Sales Consultant Name Role Phone Delma Nava Primary Care Physician [place] [facility] [place] 04/15/22 - 05/15/22 [facility] [address] [place] [address] Drive, [address] [place], [place] [address] Allergies, Adverse Reactions, Alerts Substance Reaction Severity [...] a day, # 30 capsule, 0 Refills, [id number], 158, cm, 08/07/21 13:48:00 EST, [...] Care Team Personnel Name: Delma Nava Address: [address] [place] [id number]
--- OUTSIDE RECORDS SUMMARY | 2023-10-13 03:32 | XMS_ITS | Continuity of Care Document ---
Author Name Unknown Organization [facility] ter Address [address] [place] [address]- Care Team Providers Care Lye Treater Name Role Phone Delma Nava Primary Care Physician En[place] [facility] [place] Date(s): 03/28/22 - 03/28/[address] [address] Discharge Disposition: A-D/C Home Attending Physician: Prasanna Toledo MD Admitting Physician: Prasanna Toledo MD Referring Physician: Prasanna Toledo MD Allergies, Adverse Reactions, Alerts Substance Reaction Severity Status codeine hyperventilates Active meperidine Active morphine severe vomiting Active lisinopril Nausea and vomiting Active Percocet Dizziness Nausea and vomiting Active Percodan Dizziness Nausea and vomiting Active Demerol HCl vomiting Active Bee Stings Active Medications acetaminophen-HYDROcodone 325 mg-5 mg oral tablet 1 tablet, By Mouth, Every 4 hours, PRN Pain , Moderate, for 7 days, not to exceed 8 tablets/day, # 42 tablet, 0 Refills, Acute 04/04/22 17:10:00 EDT, 03/28/22 17:10:00 EDT, Tablet, [id number], Partial fill upon patient request if the prescr... Start Date: 03/28/22 Stop Date: 04/04/22 Status: Ordered Albuterol See Instructions, 0 Refills, [...] 03/28/22 17:11:00 EDT, Route to Pharmacy Electronically, [id number], Partial fill upon p... Start [...] a day, # 30 capsule, 0 Refills, [facility] [id number], 158, cm, 08/07/21 13:48:00 EST, Height, 71.4, kg, 11/03/21 10:13:00 EDT, Dry Weight Start Date: 09/03/21 [...] Active DM2 (diabetes mellitus, type 2)(Confirmed) Active Results Radiology Reports * Exam Date Time Procedure Performing Provider Status 03/28/22 12:44 PM C-Arm < 1 Hour Flory Pulido; Au th (Verified) Notes: (C-Arm < 1 Hour) Reason For Exam: C-5-C-6 ACDF/pain RESULT: C-Arm < 1 Hour [facility] Spine Single View, C-Arm < 1 Hour INDICATION: Reason: acdf C-5-C-6 pain; Special Instructions: 45mintt 00:11.3F.T. [id number] 45mintt/00:11.3F.T./[id number] Fluoroscopy Fluoroscopy was provided for the cervical fusion procedure, with no radiologist in attendance. Fluoroscopy time/exposure: 11.3 seconds. [id number] Technologist's time: 45 minutes. Impression: Fluoroscopy provided, as above. COMPARISON: None FINDINGS: 6 sequential intraoperative spot views were obtained revealing localization of the C5-C6 disc spaceon initial imaging followed by ACDF at that level. IMPRESSION: Fluoroscopy provided for the cervical fusion procedure. Spot images illustrate ACDF C5-C6 with good alignment in the lateral projection. WSN: [id number] Ordering Physician: Prasanna Toledo Dictated By: Wilmer Webster MD Dictated Date/Time: 03/28/22 3:27 pm Reviewed By: Wilmer Webster MD Signed By: Wilmer Webster MD Signed Date/Time: 03/28/22 3:27 pm Transcribed By: FITZ Transcribed Date/Time: 03/28/22 3:24 pm * Exam Date Time Procedure Performing Provider Status 03/28/22 12:44 PM Spine Single View Flory Pulido; Auth (Verified) Notes: (Spine Single View) Reason For Exam: acdf/C-5-C-6/pain RESULT: Spine Single View [facility] Spine Single View, C-Arm < 1 Hour INDICATION: Reason: acdf C-5-C-6 pain; Special Instructions: 45mintt 00:11.3F.T. [id number] 45mintt/00:11.3F.T./[id number] Fluoroscopy Fluoroscopy was provided for the cervical fusion procedure, with no radiologist in attendance. Fluoroscopy time/exposure: 11.3 seconds. [id number] Technologist's time: 45 minutes. Impression: Fluoroscopy provided, as above. COMPARISON: None FINDINGS: 6 sequential intraoperative spot views were obtained revealing localization of the C5-C6 disc spaceon initial imaging followed by ACDF at that level. IMPRESSION: Fluoroscopy provided for the cervical fusion procedure. Spot images illustrate ACDF C5-C6 with good alignment in the lateral projection. WSN: [id number] Ordering Physician: Prasanna Toledo Dictated By: Wilmer Webster MD Dictated Date/Time: 03/28/22 3:27 pm Reviewed By: Wilmer Webster MD Signed By: Wilmer Webster MD Signed Date/Time: 03/28/22 3:27 pm Transcribed By: FITZ Transcribed Date/Time: 03/28/22 3:24 pm Vital Signs Most recent to oldest [Reference Range]: 1 2 3 Weight 70.9 kg (03/28/22 10:03 AM) Oxygen Saturation [94-100 %] 97 % (03/28/22 4:00 PM) 98 % (03/28/22 3:45 PM) 97 % (03/28/22 3:30 PM) Pulse Rate [55-90 bpm] 85 bpm (03/28/22 10:03 AM) Blood Pressure [90-138/55-84 mm Hg] 149/70mm Hg *H* (03/28/22 4:00 PM) 133/90mm Hg (03/28/22 3:45 PM) 143/67mm Hg *H* (03/28/22 3:30 PM) Respiratory Rate [16-30 br/min] 15 br/min *L* (03/28/22 4:00 PM) 18 br/min (03/28/22 3:45 PM) 14 br/min *L* (03/28/22 3:30 PM) Temperature [96.8-100.4 DegF] 97.6 DegF (03/28/22 3:30 PM) 97.5 DegF (03/28/22 1:00 PM) 98.0 DegF (03/28/22 10:03 AM) Liters per Minute 3 L/min (03/28/22 2:30 PM) 3 L/min (03/28/22 2:15 PM) 3 L/min (03/28/22 1:30 PM) Mode of Delivery (Oxygen) Room air (03/28/22 3:30 PM) Room air (03/28/22 2:45 PM) Nasal cannula (03/28/22 2:30 PM) Blood pressure sites Arm, left (03/28/22 3:30 PM) Arm, left (03/28/22 1:00 PM) Arm, left (03/28/22 10:03 AM) Temperature Route Temporal (03/28/22 3:30 PM) Temporal (03/28/22 1:00 PM) Temporal (03/28/22 10:03 AM) Dry Weight 70.9 kg (03/28/22 10:03 AM) Weight Obtained Via Standing scale (03/28/22 10:03 AM) Dry Weight Obtained Via Standing scale (03/28/22 10:03 AM) Social History Social History Type Response Smoking Status Former smoker, quit more than 30 days ago entered on: 11/13/21 Sex
--- OUTSIDE RECORDS SUMMARY | 2023-10-13 03:32 | XMS_ITS | Continuity of Care Document ---
Author Name Unknown Organization [facility] Address [address] [place] [address], [address] [place] [address]- Care Team Providers Care Wood Tank Erector Name Role Phone Delma Nava Primary Care Physician [place] [facility] [place]s): 02/20/22 - 02/27/22 [facility] [address] [place] [address] Drive, [address] [place], [place] [address] Attending Physician: Prasanna Toledo MD Referring Physician: Delma Nava Allergies, Adverse Reactions, Alerts Substance Reaction Severity Status codeine hyperventilates Active morphine severe vomiting Active lisinopril Nausea and vomiting Active Demerol HCl vomiting Active Bee Stings Active Percodan Dizziness Nausea and vomiting Active Percocet Dizziness Nausea and vomiting Active Medications Advair Diskus 250 mcg-50 mcg [...] 02/22/15 13:50:10 Start Date: 02/22/15 Status: Ordered Gabapentin By Mouth, 0 Refills, Maintenance, 02/20/22 10:30:00 EDT, Partial fill upon patient request if [...] a day, # 30 capsule, 0 Refills, [id number], 158, cm, 08/07/21 13:48:00 [...] 02/02/21 Active Diabetes mellitus type 2(Confirmed) Active Vital Signs Most recent to oldest [Reference Range]: 1 Height 158 cm (02/20/22 10:27 AM) Weight 69.9 kg (02/20/22 10:27 AM) Body Mass Index [18.5-24.99] 28 *H* (02/20/22 10:27 AM) Social History Social History Type Response Smoking Status Former smoker, quit more than 30 days ago entered on: 11/13/21 Sex
--- OUTSIDE RECORDS SUMMARY | 2023-10-13 03:32 | XMS_ITS | Continuity of Care Document ---
Author Name Unknown Organization [facility] Address [address] [facility] [address] [facility], [facility] [address] [place] [address]- Care Team Providers Care Securities Sales Associate Name Role Phone Delma Nava Primary Care Physician Encounter 03/06/20 - 03/13/20 [facility] [address] [place] [address], [facility] [address] [place] [address]- [phone] Attending Physician: Delma Nava Admitting Physician: Delma Nava Referring Physician: Delma Nava Allergies, Adverse Reactions, Alerts Substance Reaction Severity Status codeine hyperventilates Active morphine severe vomiting Active Demerol HCl vomiting Active Bee [...] 13:50:56, Tablet Start Date: 02/22/15 Status: Ordered Estradiol 0 Refills, Maintenance, 02/22/15 [...] 13:49:47, Tablet Start Date: 02/22/15 Status: Ordered metformin 500 mg oral tablet See Instructions, 2 tabs in morning, 3 tabs in the evening By Mouth 2 times a day, 0 Refills, Maintenance, 02/22/15 14:09:33 Start Date: 02/22/15 Status: Ordered Percocet-5/325 325 mg-5 mg oral tablet 1 tablet, By Mouth, Every 4 to 6 hours, PRN Pain, (not to exceed 4000 mg acetaminophen per day), # 15 tablet, 0 Refills, Maintenance, Tablet Start Date: 10/31/09 Status: Ordered simvastatin 20 mg oral tablet [...] Effective Dates Status Health Status Inform ant Diabetes mellitus type 2, uncontrolled(Confirmed) Active
--- OUTSIDE RECORDS SUMMARY | 2023-10-13 03:32 | XMS_ITS | Continuity of Care Document ---
Author Name Unknown Organization [facility] Address [address] [place] [address]- Care Team Providers Care Impregnation Operator Name Role Phone Delma Nava Primary Care Physician Encounter [facility] [place] Date(s): 02/11/22 - 03/13/[address] [address]- Attending Physician: Sneha Holman Admitting Physician: Sneha Holman Referring Physician: AdmtrSneha Allergies, Adverse Reactions, Alerts Substance Reaction Severity [...] a day, # 30 capsule, 0 Refills, [facility] 5278, 158, cm, 08/07/21 [...]
--- OUTSIDE RECORDS SUMMARY | 2023-10-13 03:32 | XMS_ITS | Continuity of Care Document ---
Author Name Unknown Organization [facility] Address [address] [place] [address]- Care Team Providers Care C Unix Developer Name Role Phone Delma Nava Primary Care Physician Encounter [facility] [place] [facility] [id number] Date(s): 06/14/21 - 07/14/21 [facility] [address] [place] [address]- Attending Physician: Sneha Holman Admitting Physician: Admtr, [...] opioid drug. Start Date: 06/14/21 Status: Ordered Ropinirole By Mouth, 0 Refills, [...]
--- OUTSIDE RECORDS SUMMARY | 2023-10-13 03:32 | XMS_ITS | Continuity of Care Document ---
Author Name Unknown Organization [facility] ter Address [address] [place] [address]- Care Team Providers Care President & Ceo [employer] Name Role Phone Delma Nava Primary Care Physician [place] [facility] [place] - 03/04/[address] [address]- [facility] Attending Physician: Delma Nava Admitting Physician: Delma [...]
--- OUTSIDE RECORDS SUMMARY | 2023-10-13 03:32 | XMS_ITS | Continuity of Care Document ---
Author Name Unknown Organization [facility] Address [address], 4t [place] [address]- Care Team Providers Care Administration Internship Name Role Phone Delma Nava Primary Care Physician Encounter [facility] [place] Date(s): 11/13/21 - 12/14/21 [facility] [address], [address]th [place] [address]- Attending Physician: April Sibley MD Admitting Physician: April Sibley MD Referring Physician: Delma Nava Allergies, Adverse [...] a day, # 30 capsule, 0 Refills, [facility]278, 158, cm, 08/07/21 13:48:00 EST, [...]
--- OUTSIDE RECORDS SUMMARY | 2023-10-13 03:32 | XMS_ITS | Continuity of Care Document ---
Author Name Unknown Organization [facility] Address [address] [facility] [place] [address]- Care Team Providers Care Car Seat Maker Name Role Phone Delma Nava Primary Care Physician Encounter 03/26/22 - 04/02/22 [facility] [address], [address] [place] [address]- Attending Physician: Jagruti Allen MD Admitting Physician: Jagruti Allen MD Referring Physician: Jagruti Allen MD Allergies, Adverse Reactions, Alerts Substance Reaction [...] 04/04/22 17:10:00 EDT, 03/28/22 17:10:00 EDT, Tablet, [facility], Partial fill upon patient request if the [...] 03/28/22 17:11:00 EDT, Route to Pharmacy Electronically, [facility] [id number], Partial fill upon p... [...] a day, # 30 capsule, 0 Refills, [id number], 158, cm, 08/07/21 13:48:00 [...]
--- OUTSIDE RECORDS SUMMARY | 2023-10-13 03:32 | XMS_ITS | Continuity of Care Document ---
Author Name Unknown Organization [facility] Address [address] [facility], [address] [place] [address]- Care Team Providers Care Corrugated Box Machine Operator Name Role Phone Delma Nava Primary Care Physician Encounter 03/07/21 - 03/14/21 [facility] [address], [facility] [address] [place] [address]- Attending Physician: Delma Nava Admitting Physician: Delma [...]
--- NOTE | 2023-10-13 03:52 | ED_ITS ---
HPI - Chest Pain General Chief Complaint: Chest Pain Stated Complaint: chest pain Time Seen by Provider: 10/13/23 03:33 Source: patient Mode of arrival: ambulatory Limitations: no limitations History of Present Illness HPI narrative: 57 yo female with PMH Of type 2 DM, hypothyroidism, dx with pancolitis 05/2023 denies prior PUD does not take thinners or aspirin comes in with c/o low grade upper abdominal pain into chest and back that started in the AM on Friday and then around 8pm became acutely worse she tried to take a hot shower but no improvement. She started to vomit and realize she needed help. No black or bloody stools. It hurts to move. No recent travel or procedures. MD complaint: chest pain (epigastric pain) Onset (ago): day(s) (yesterday AM) Timing of current episode: increasing Prior episodes: No Onset: during rest Pain location: substernal Pain radiation: back and abdomen Severity: severe Quality: sharp Relieving factors: nothing Exacerbating factors: nothing Associated symptoms: nausea and vomiting Treatment prior to arrival: none Related Data Home Medications Medication Instructions Recorded Confirmed albuterol sulfate 90 mcg/actuation 2 puff inhalation QID PRN Wheezing 05/13/23 05/13/23 aerosol inhaler aspirin 81 mg tablet,delayed 81 mg PO DAILY 05/13/23 05/13/23 release atorvastatin 10 mg tablet 10 mg PO BEDTIME 05/13/23 05/13/23 empagliflozin 25 mg tablet 25 mg PO DAILY 05/13/23 05/13/23 (Jardiance) estradiol 1 mg tablet 1 mg PO BID 05/13/23 05/13/23 gabapentin 300 mg capsule 300 mg PO TID 05/13/23 05/13/23 insulin glargine 100 40 unit subcut DAILY 05/13/23 05/13/23 unit-lixisenatide 33 mcg/mL subcutaneous pen (Soliqua /) levothyroxine 112 mcg tablet 112 mcg PO DAILY 05/13/23 05/13/23 multivitamin 1 tab PO DAILY 05/13/23 05/13/23 omeprazole 40 mg capsule,delayed 40 mg PO DAILY 05/13/23 05/13/23 release Previous Rx's Medication Instructions Recorded amoxicillin 875 mg-potassium 1 tab PO Q12H #14 tabs 05/18/23 clavulanate 125 mg tablet hydromorphone 2 mg tablet 1 mg (1/2 x 2 mg) PO Q6H PRN Pain, 05/18/23 Moderate(Pain Scale 4-6) #6 tabs hydromorphone 2 mg tablet 2 mg PO Q6H PRN pain #8 tabs 10/13/23 (Dilaudid) ondansetron 4 mg disintegrating 4 mg PO Q8H PRN nausea and 10/13/23 tablet vomiting #20 tabs Allergies Allergy/AdvReac Type Severity Reaction Status Date / Time acetaminophen [From PERCOCET] Allergy Severe VOMITING Verified 05/12/23 19:36 codeine [Codeine] Allergy Mild HYPERVENTIL Verified 05/12/23 19:36 ATE meperidine [From Demerol] Allergy Mild VOMITING Verified 05/12/23 19:36 AND FEVER morphine [Morphine] Allergy Mild VOMITING,DE Verified 05/12/23 19:36 LUSSONAL lisinopril Allergy Dizziness Verified 05/12/23 19:36 oxycodone [OXYCODONE] AdvReac Mild NAUSEA & Verified 05/12/23 19:36 VOMITING From PERCOCET Allergy Severe VOMITING Uncoded 05/25/20 14:37 Percodan Allergy Unknown Vomiting Uncoded 05/12/23 19:36 Review of Systems 2 Review of Systems: Constitutional : No Weight loss, No Fever, No Chills ENT/Mouth : No sore throat, No Rhinorrhea Eyes: No Swelling, No Redness Cardiovascular : pos Chest Pain, No SOB, NoEdema Respiratory : No Cough, No Sputum, No Wheezing Gastrointestinal : Positive Nausea, Positive Vomiting, no Diarrhea, positive abdominal Pain, No Hematochezia, No Melena Genitourinary : No Dysuria, No Urinary Frequency, No Hematuria, No Urgency Musculoskeletal : No joint pain, No Myalgias, No Joint Swelling Skin : No Skin Lesions, No rash Neuro : No Weakness, No Numbness, No Dizziness, No Headache Psych : No Anxiety/Panic, No Depression Heme/Lymph: No Bruising, No Lymphadenopathy Endocrine : No Polyuria, No Polydipsia All other systems reviewed and are negative. [facility] Past Medical History Attestation statement: The following information was validated with the patient. Source: old records reviewed Medical History Hypothyroidism Surgical History S/P cholecystectomy Social History Social History Household Members: Spouse Housing: Apartment Do you presently have visiting nurse or other home services: No Alcohol intake: never Patient Tobacco Use Status: Former Tobacco user Advance Directives: No Advance Directives Information Provided: No service: No Physical Exam 2 Vital Signs: Vital Signs: Last Vital Signs Temp 97.8 F 10/13/23 04:47 Pulse 96 10/13/23 04:47 Resp 18 10/13/23 04:47 BP 137/68 10/13/23 04:47 Pulse Ox 97 10/13/23 04:47 O2 Del Method Room Air 10/13/23 04:47 BMI result Body Mass Index 27.1 Appearance: Alert. Oriented X3. Vomiting mild acute distress. Eyes: Pupils equal, round and reactive to light. ENT: Pharynx normal. Neck: Normal inspection. Neck supple. CVS: Normal heart rate and rhythm. Pulses normal. Respiratory: No respiratory distress. Breath sounds normal. Abdomen: Soft and moderate ttp in epigastric area no pulsatile mass noted Skin: Skin warm and dry. Normal skin color. Normal skin turgor. Extremities: No lower extremity edema. No calf ttp Neuro: Oriented X 3. No motor deficit. No sensory deficit. Course Course Course Narrative: patient feeling much better Reevaluation(s) Reevaluation #1: wants something to drink will attempt PO challenge EKG # 2 ordered will assess for any changes initial had poor trace and she was HTNive. Reevaluation #2: no WBC count, negative lactic acid, VS stable, BP improved, trop flat x 2, CTA negative drinking fluids now and pain resolved Medications Administered Discontinued Medications Generic Name Dose Route Start Last Admin Trade Name Freq PRN Reason Stop Dose Admin Hydromorphone HCl 1 mg 10/13/23 03:41 10/13/23 04:39 Hydromorphone Hcl 1 Mg/Ml Syringe IVPUSH 10/13/23 03:42 1 mg ONCE ONE Administration Protocol Sodium Chloride 1,000 mls @ 999 mls/hr 10/13/23 03:45 10/13/23 04:35 Ns IV 10/13/23 04:45 999 mls/hr .Q1H1M ABHAY Administration Iohexol 85 ml 10/13/23 04:06 10/13/23 04:07 Iohexol 350 Mg/Ml 100 Ml Infus..Btl IV 10/13/23 04:07 85 ml ONCE ONE Administration Ondansetron HCl 4 mg 10/13/23 03:38 10/13/23 04:35 Ondansetron Hcl 4 Mg/2 Ml Vial IVPUSH 10/13/23 03:39 4 mg ONCE ONE Administration Pantoprazole Sodium 40 mg 10/13/23 03:38 10/13/23 04:37 Pantoprazole Sodium 40 Mg/10 Ml Vial IVPUSH 10/13/23 03:39 40 mg ONCE ONE Administration Medical Decision Making Medical Decision Making [facility] Narrative: 57 yo female with PMH Of type 2 DM, hypothyroidism, dx with pancolitis 05/2023 here with c/o upper abdominal pain that radiates to chest and back she is s/p cholecystectomy already at this time labs, lactic acid EKG, troponin x 2, IV dilaudid for pain, STAT CTA of chest and abdomen for possible dissection vs perforation given presentation and increase in pain. Her pain is very reproduceable in upper abdomen which would make ACS unlikely abdomen is tender to palpation Differential Diagnosis Differential Diagnoses: The differential diagnosis associated with the presentation includes PUD, gastritis, pancreatitis, ACS, VTE, dissection, peforated ulcer Admission/Observation Consideration of admission/observation: Escalation of care including admission/observation considered patient states she feels much better is tolerating PO Lab Data [facility] Lab Attestation statement: I reviewed the patient's lab results. 10/12/23 22:10 10/12/23 22:10 Labs: Lab Results 10/12/23 10/13/23 Range/Units 22:10 03:51 WBC 8.0 (4.8-10.8) X10*3/uL RBC 4.48 (4.20-5.50) X10*6/uL Hgb 15.3 (12.0-16.0) g/dl Hct 43.6 (37.0-47.0) % MCV 97.3 (80.0-98.0) fL MCH 34.2 H (27.0-33.0) pg MCHC 35.1 H (31.0-35.0) g/dl RDW 12.0 (11.0-16.0) % Plt Count 188 (160-400) X10*3/uL MPV 10.8 (9.4-12.3) fL Immature Gran % (Auto) 0.9 H (0.0-0.4) % Neut % (Auto) 66.2 (45-73) % Lymph % (Auto) 26.2 (20-40) % Starr % (Auto) 5.8 (2-11) % Eos % (Auto) 0.5 (0-4) % Baso % (Auto) 0.4 (0-2) % Lymph # (Auto) 2.1 (1.2-4.9) X10*3/uL Starr # (Auto) 0.5 (0.1-1.2) X10*3/uL Eos # (Auto) 0.0 (0.0-0.4) X10*3/uL Baso # (Auto) 0.0 (0.0-0.2) X10*3/uL Abs Immat Gran (auto) 0.07 H (0.00-0.03) X10*3/uL Absolute Neuts (auto) 5.3 (2.0-8.3) x10*3/uL Absolute Nucleated RBC 0.000 (0.0-0.012) X10*3/uL Nucleated RBC % (auto) 0.0 (0.0-0.2) /100WBC Sodium 142 (135-145) mmol/L Potassium 3.8 (3.3-5.1) mmol/L Chloride 105 (96-108) mmol/L Carbon Dioxide 27 (22-29) mmol/L Anion Gap 14 (12-20) BUN 17 H (9-16) mg/dL Creatinine 1.05 (0.5-1.4) mg/dL Estim Creat Clear Calc 53.1 Estimated GFR 54 Random Glucose 230 H (60-115) mg/dL Lactic Acid 0.8 (0.5-2.0) mmol/L Calcium 9.7 D (8.4-10.2) mg/dL Total Bilirubin 0.5 (0.0-1.0) mg/dL Direct Bilirubin 0.2 (0.0-0.5) mg/dL AST 14 (5-31) U/L ALT 19 (0-31) U/L Alkaline Phosphatase 49 (39-117) U/L Troponin I High Sens < 2.7 < 2.7 (<3.5-17.0) ng/L Total Protein 7.1 (6.5-8.0) g/dL Albumin 4.5 (3.5-5.0) g/dL Lipase 14 (8-78) U/L Independent Interpretation I performed an independent interpretation of an: EKG and CT Scan (no dissection, perforation, SBO) Interpretation: Rate: 91 Rhythm: NSR [place]: left Normal P waves. Normal LAURA. Normal QRS complex. Poor R wave progression ST T wave : nonspecific t waves I and aVL , no EOBNY poor tracing qTC: 492 prior studies: t wave inversions more evident in lateral leads but poor tracing will repeat EKG The study has been interpreted contemporaneously by me. EKG #2. Rate: 81 Rhythm: NSR [place]: normal Normal P waves. Normal LAURA. Normal QRS complex. Poor R wave progression (noted 05/2023) ST T wave : no EBONY, normal qTC: 471 prior studies: no acute ischemia The study has been interpreted contemporaneously by me. . Radiology Impression Discussion of test interpretation with radiology: I have reviewed the radiologist's reading. External Record Review External record reviewed: Inpatient record Prescription Management I considered prescription management with: Pain Medication and Other Critical Care Time Critical Care Time Critical Care Time: Yes Total Critical Care Time: 60 Attestation: review of records, STAT CTA Of chest and abdomen, pain improved with IV dilaudid repeat assessments I attest to this time spent taking care of the patient Discharge Plan Discharge Clinical Impression: Enteritis Abdominal pain Qualifiers: Abdominal location: epigastric Qualified Code(s): R10.13 - Epigastric pain Patient Disposition: Home, Self-Care Instructions: Abdominal Pain (ED), Enteritis (ED) Additional Instructions: return for chest pain, trouble breathing, dizziness, increased pain, inability to eat or drink or any other concerns. CHEST: Vasculature: Assessment of the ascending aorta is suboptimal due to motion artifact. Within these limitations, no findings to suggest thoracic aortic dissection. Ascending aorta measures approximately 2.6 cm in diameter. There is scattered atherosclerotic plaque and mild calcification along the descending thoracic aorta. No central pulmonary embolus is seen. Mediastinum: Thyroid gland appears diminutive. There are subcentimeter mediastinal lymph nodes within the range of normal variation. Cardiac size is within normal limits; no pericardial effusion. No significant coronary artery calcifications. Pleura: No pneumothorax or pleural effusion. Chest Wall/Axilla: Unremarkable. ABDOMEN/PELVIS: Liver, Gallbladder, Biliary Tree: The liver is normal in size, shape, and attenuation. No focal hepatic lesion or biliary ductal dilatation is present. Gallbladder is not visualized. Pancreas: Unremarkable. Spleen: Unremarkable. Adrenal Glands: Unremarkable. Kidneys and Ureters: Bilateral nephrograms are symmetric. No hydronephrosis or obstructing calculus identified. Bladder: Unremarkable. Gastrointestinal Tract: No evidence of bowel obstruction. There is prominent mural enhancement of several small bowel loops most notably in the left abdomen, which could be indicative of an enteritis. The appendix is unremarkable. No free fluid or free air is seen. Abdominal Wall: No hernia is demonstrated. Lymphovascular Structures: Lymph nodes: Normal. Vascular: No evidence of aortic aneurysm or dissection. There is atherosclerotic plaque and calcification along the aorta and bilateral common iliac arteries. The celiac, superior mesenteric, inferior mesenteric, and bilateral renal arteries are patent. Accessory renal arteries are noted bilaterally. Bilateral iliac arteries are patent. Pelvic Viscera: Patient is status post hysterectomy. OSSEOUS STRUCTURES: Scattered endplate osteophytes noted in the spine. CT/CT angio chest aorta IMPRESSION: 1. No evidence of aortic dissection. Atherosclerotic plaque and calcification. 2. Prominent mural enhancement of several small bowel loops most notably in the left abdomen, which could be indicative of an enteritis. 3. Nodule along the right minor fissure measuring 4 mm, most suggestive of a lymph node. According to the UPDATED 2017 Fleischner Society recommendations, the advised follow-up imaging for solid nodules < 6 mm is: LOW RISK PATIENT: No routine follow-up. HIGH RISK PATIENT: Optional CT at 12 months. Prescriptions: New ondansetron 4 mg tablet,disintegrating 4 mg PO Q8H PRN (Reason: nausea and vomiting) Qty: 20 0RF hydromorphone [Dilaudid] 2 mg tablet 2 mg PO Q6H PRN (Reason: pain) Qty: 8 0RF Rx Instructions: Partial Fill upon patient request. No Action atorvastatin 10 mg tablet 10 mg PO BEDTIME omeprazole 40 mg capsule,delayed release(DR/EC) 40 mg PO DAILY estradiol 1 mg tablet 1 mg PO BID gabapentin 300 mg capsule 300 mg PO TID albuterol sulfate 90 mcg/actuation HFA aerosol inhaler 2 puff INHALATION QID PRN (Reason: Wheezing) levothyroxine 112 mcg tablet 112 mcg PO DAILY Jardiance 25 mg tablet 25 mg PO DAILY Soliqua 100/33 100 unit-33 mcg/mL insulin pen 40 unit subcut DAILY multivitamin Tablet 1 tab PO DAILY aspirin 81 mg Tablet,Delayed Release (Dr/Ec) 81 mg PO DAILY amoxicillin-pot clavulanate 875-125 mg Tablet 1 tab PO Q12H Qty: 14 0RF hydromorphone 2 mg Tablet 1 mg PO Q6H PRN (Reason: Pain, Moderate(Pain Scale 4-6)) Qty: 6 0RF Rx Instructions: Partial Fill upon patient request. Referrals: Delma Kimbrough PA [Primary Care Provider] - 1 day
--- NOTE | 2023-10-13 03:52 | PC.NURSE ---
Pt is a 57 y/o female who presents for worsening and ongoing chest pain that started yesterday morning when she work up. Pt reports pain is located at the base of her rib cage bilaterally and radiates into her back. Pain has been a 3-4/10 all day up until 2000 hours this past evening when it worsened. Pt reports taking a warm shower to try and help with the pain, no success. Skin is W/P/D, speaking in full sentences using clear speech. Denies any similar pain in the past. Pain is accompanied by nausea and vomiting. Pt otherwise denies any recent illness or fever, headache/dizziness, recent travel or trauma, and any constipation or diarrhea. Tolerates food ok and has been drinking fluids. History is significant for total hysterectomy and gallbaldder removal 30+ years ago. Pt has chronic liver disease. 20G IV access established in right AC TKO.
[2023-10-13] MEDS: iohexoL 350 MG/ML 100 ML INFUS..BTL 85 ML IV (04:07)
[2023-10-13 04:08] LABS: Lactic Acid 0.8 mmol/L (0.5-2.0)
[2023-10-13 04:22] LABS: Troponin-I High Sensitivity < 2.7 ng/L (<3.5-17.0)
[2023-10-13] MEDS: 0.9 % Sodium Chloride 1,000 ML 999 ML IV (04:35)
[2023-10-13] MEDS: ondansetron HCL 4 MG/2 ML VIAL IVPUSH (04:35)
[2023-10-13] MEDS: Pantoprazole Sodium 40 MG/10 ML VIAL IVPUSH (04:37)
[2023-10-13 04:39] VITALS: RESP 16
[2023-10-13] MEDS: HYDROmorphone HCl 1 MG/ML SYRINGE IVPUSH (04:39)
--- NOTE | 2023-10-13 04:44 | PC.NURSE ---
Pt medicated per MAR.
[2023-10-13 04:47] VITALS: BP 137/68; PULSE 96; RESP 18; TEMP 36.6; O2SAT 97
--- NOTE | 2023-10-13 04:48 | MHC.EDTECH ---
This tech took over care of patient at this time, Hourly rounds and vitals completed,patient resting at this time and call hill in reach
--- NOTE | 2023-10-13 05:46 | ECG_ITS ---
Test Reason : CX PAIN Blood Pressure : / mmHG Vent. Rate : 091 BPM Atrial Rate : 094 BPM P-R Int : 126 ms QRS Dur : 090 ms QT Int : 400 ms P-R-T Axes : 033 002 108 degrees QTc Int : 492 ms Sinus rhythm with marked sinus arrhythmia Possible Anterior infarct , age undetermined Abnormal ECG When compared with ECG of 12-MAY-2023 19:54, Nonspecific T wave abnormality now evident in Lateral leads Referred By: Suha Spence Electronically Signed By:CHRISTIAN DAVILA
--- NOTE | 2023-10-13 06:04 | PC.NURSE ---
Pt is A & O X 4, pleasant and cooperative. Verbalizes needs. Changes positions independently. Reports being pain free at the present time. All diagnostics are unremarkable. Call light within reach. Disposition is still pending.
== END 2023-10-13 06:36 | disposition home or self-care (01) ==
PROVIDERS: Emergency Provider Emergency Medicine; PCP Physician Assistant Medical
DX: R07.89 Other chest pain (principal); K52.9 Noninfective gastroenteritis and colitis, unspecified; R10.2 Pelvic and perineal pain; I49.9 Cardiac arrhythmia, unspecified; R10.13 Epigastric pain; R11.2 Nausea with vomiting, unspecified; Z79.899 Other long term (current) drug therapy
CPT/HCPCS: 36415; 71275; 74174; 80048; 80076; 83605; 83690; 84484; 85025; 93005; 96374; 96375; 99284; C9113; J1170; J2405; Q9967

== ENCOUNTER → 2023-10-12 | Outpatient (BNV) | payer OTHER, SELFPAY | PROVIDERS: Emergency Provider Emergency Medicine; PCP Physician Assistant Medical; Visit Provider Internal Medicine | DX: R07.9 Chest pain, unspecified (principal) | CPT/HCPCS: 93010 ==

== ENCOUNTER → 2023-10-13 05:46 | Outpatient (BNV) | payer OTHER, SELFPAY | PROVIDERS: Emergency Provider Emergency Medicine; PCP Physician Assistant Medical; Visit Provider Internal Medicine | DX: R07.9 Chest pain, unspecified (principal) | CPT/HCPCS: 93010 ==

== ENCOUNTER 2024-01-21 13:44 | Outpatient (REF) | payer OTHER, SELFPAY ==
[2024-01-21 14:40] LABS: Hematocrit 43.9 % (37.0-47.0); Hemoglobin 15.3 g/dl (12.0-16.0); Mean Corpuscular HGB Conc 34.9 g/dl (31.0-35.0); Mean Corpuscular Hemoglobin 34.2 pg (27.0-33.0); Mean Corpuscular Volume 98.2 fL (80.0-98.0); Mean Platelet Volume 11.4 fL (9.4-12.3); Platelet Count 194 X10*3/uL (160-400); Red Blood Count 4.47 X10*6/uL (4.20-5.50); White Blood Count 6.8 X10*3/uL (4.8-10.8)
[2024-01-21 15:16] LABS: Alanine Aminotransferase 21 U/L (0-31); Albumin Level 4.5 g/dL (3.5-5.0); Alkaline Phosphatase 51 U/L (39-117); Aspartate Amino Transferase 17 U/L (5-31); Bilirubin Direct 0.2 mg/dL (0.0-0.5); Bilirubin Total 0.7 mg/dL (0.0-1.0); Lipase 16 U/L (8-78); Total Protein 7.4 g/dL (6.5-8.0)
[2024-01-21 15:44] LABS: TSH reflex Free T4 2.25 uIU/mL (0.32-4.0)
== END 2024-01-21 13:45 | disposition home or self-care (01) ==
LOC: HO.LAB 13:44
PROVIDERS: PCP Physician Assistant Medical; Visit Provider Internal Medicine Gastroenterology
DX: R19.7 Diarrhea, unspecified (principal)
CPT/HCPCS: 36415; 80076; 83690; 84443; 85027

== ENCOUNTER 2024-01-25 12:50 | Outpatient (REF) | payer OTHER, SELFPAY ==
[2024-01-25 14:02] LABS: CDiff Gene PCR NEGATIVE (Negative)
[2024-01-25 14:04] LABS: Leukocytes Stool Qualitative NEGATIVE (NEGATIVE)
== END 2024-01-25 12:51 | disposition home or self-care (01) ==
LOC: HO.LNP 12:50
PROVIDERS: Visit Provider Internal Medicine Gastroenterology
DX: R19.7 Diarrhea, unspecified (principal)
CPT/HCPCS: 87177; 87209; 87493; 89055

== ENCOUNTER 2024-06-13 06:51 | Inpatient (IN) | payer OTHER, SELFPAY ==
[2024-06-13] VITALS (11 sets, daily range): BP systolic 93–125; BP diastolic 60–78; PULSE 110–136; RESP 12–20; TEMP 36.4–36.9; O2SAT 94–99; BMI 25.4
--- NOTE | 2024-06-13 | ECG_ITS ---
Test Reason : CHEST PAIN Blood Pressure : / mmHG Vent. Rate : 120 BPM Atrial Rate : 120 BPM P-R Int : 144 ms QRS Dur : 090 ms QT Int : 336 ms P-R-T Axes : 077 016 139 degrees QTc Int : 474 ms Sinus tachycardia Low voltage QRS Nonspecific T wave abnormality Cannot rule out Anterior infarct (cited on or before 13-JUN-2024) Abnormal ECG When compared with ECG of 13-JUN-2024 07:41, T wave inversion now evident in Anterior leads Referred By: Edyta Camacho Electronically Signed By:AUGUSTO DELUCA
--- NOTE | ~2024-06-13 | CT_ITS ---
EXAMINATION: CT ABDOMEN AND PELVIS WITH CONTRAST CLINICAL INFORMATION: Abdominal pain. Bloody stools. History of colitis. COMPARISON: CT abdomen and pelvis October 13, 2023 and May 15, 2023 TECHNIQUE: Multidetector volumetric images were obtained from the superior aspect of the liver through the pubic symphysis following administration 85 mL of Omnipaque 350 intravenous contrast. Sagittal and coronal reformatted images were obtained on the technologist's workstation. Oral contrast: No This CT examination was performed using dose optimization techniques as appropriate, variously including the following: *Automated exposure control *Adjustment of mA and/or kV according to patient size (this includes techniques or standardized protocols for targeted exams where dose is matched to indication/reason for exam; i.e. extremities or head) *Use of iterative reconstruction technique DLP: 471 mGy-cm FINDINGS: Visualized lung bases are well aerated. The liver is normal in size. The gallbladder is surgically absent. The pancreas, spleen and adrenal glands are unremarkable. Symmetrically enhancing kidneys. No hydronephrosis of either kidney. The stomach is decompressed. Normal caliber loops of small bowel. The colon is decompressed and therefore not optimally characterized, however, there appears to be diffuse fatty mucosal infiltration throughout the colon, nonspecific. Normal appendix. Normal caliber abdominal aorta demonstrating moderate calcified and noncalcified disease. No retroperitoneal lymphadenopathy. The bladder is normal in appearance. The uterus is surgically absent. No gross free pelvic fluid. No inguinal lymphadenopathy. Mild diffuse degenerative changes of the spine. CT/CT abdomen pelvis w IV con IMPRESSION: 1. No CT evidence for acute abnormality within the abdomen or pelvis. 2. The colon is decompressed and therefore not optimally characterized, however, there appears to be diffuse fatty mucosal infiltration throughout the colon, nonspecific. Fleischner guidelines were followed. Electronically signed by: Perez Nelson MD 06/13/2024 08:41 AM EDT
--- NOTE | 2024-06-13 07:18 | ECG_ITS ---
Test Reason : GI BLEED Blood Pressure : / mmHG Vent. Rate : 131 BPM Atrial Rate : 131 BPM P-R Int : 152 ms QRS Dur : 088 ms QT Int : 272 ms P-R-T Axes : 074 006 120 degrees QTc Int : 401 ms Sinus tachycardia Low voltage QRS Nonspecific T wave abnormality Cannot rule out Anterior infarct , age undetermined Abnormal ECG When compared with ECG of 13-OCT-2023 05:58, Vent. rate has increased BY 50 BPM Non-specific change in ST segment in Anterior leads Nonspecific T wave abnormality now evident in Anterolateral leads Referred By: Idalmis Stiles Electronically Signed By:AUGUSTO DELUCA
--- NOTE | 2024-06-13 07:21 | ED.NAVMDI ---
HPI - Nausea/Vomiting/Diarrhea General Chief complaint: Nausea/Vomiting/Diarrhea Stated complaint: N/V, BLOOD IN STOOL Time Seen by Provider: 06/13/24 07:11 Source: patient and EMS Mode of arrival: EMS Limitations: no limitations History of Present Illness ED Provider: DR. Stiles HPI Narrative: 58-year-old female with past medical history significant for hypothyroidism DM 2, colitis with prior hospitalization. Symptoms started yesterday with nausea vomiting, bright red blood diarrhea, and diffuse abdominal pain patient had multiple diarrhea with blood on multiple vomiting, patient had similar history in the past require hospitalization for 6 days and was diagnosed with colitis in the past. No fever, no chills, no dysuria, no frequency urination, passing flatus. Past surgical history significant for cholecystectomy and hysterectomy. 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 No recent use of antibiotic, no recent travel. Related Data Home Medications ?Medication ?Instructions ?Recorded ?Confirmed albuterol sulfate 90 mcg/actuation 2 puff inhalation QID PRN Wheezing 05/13/23 05/13/23 aerosol inhaler aspirin 81 mg tablet,delayed 81 mg PO DAILY 05/13/23 05/13/23 release atorvastatin 10 mg tablet 10 mg PO BEDTIME 05/13/23 05/13/23 empagliflozin 25 mg tablet 25 mg PO DAILY 05/13/23 05/13/23 (Jardiance) estradiol 1 mg tablet 1 mg PO BID 05/13/23 05/13/23 gabapentin 300 mg capsule 300 mg PO TID 05/13/23 05/13/23 insulin glargine 100 40 unit subcut DAILY 05/13/23 05/13/23 unit-lixisenatide 33 mcg/mL subcutaneous pen (Soliqua 100/33) levothyroxine 112 mcg tablet 112 mcg PO DAILY 05/13/23 05/13/23 multivitamin 1 tab PO DAILY 05/13/23 05/13/23 omeprazole 40 mg capsule,delayed 40 mg PO DAILY 05/13/23 05/13/23 release Previous Rx's ?Medication ?Instructions ?Recorded amoxicillin 875 mg-potassium 1 tab PO Q12H #14 tabs 05/18/23 clavulanate 125 mg tablet hydromorphone 2 mg tablet 1 mg (1/2 x 2 mg) PO Q6H PRN Pain, 05/18/23 Moderate(Pain Scale 4-6) #6 tabs hydromorphone 2 mg tablet 2 mg PO Q6H PRN pain #8 tabs 10/13/23 (Dilaudid) ondansetron 4 mg disintegrating 4 mg PO Q8H PRN nausea and 10/13/23 tablet vomiting #20 tabs Allergies Allergy/AdvReac Type Severity Reaction Status Date / Time acetaminophen [From PERCOCET] Allergy Severe VOMITING Verified 06/13/24 07:07 codeine [Codeine] Allergy Mild HYPERVENTIL Verified 06/13/24 07:07 ATE meperidine [From Demerol] Allergy Mild VOMITING Verified 06/13/24 07:07 AND FEVER morphine [Morphine] Allergy Mild VOMITING,DE Verified 06/13/24 07:07 LUSSONAL lisinopril Allergy Dizziness Verified 06/13/24 07:07 oxycodone [OXYCODONE] AdvReac Mild NAUSEA & Verified 06/13/24 07:07 VOMITING From PERCOCET Allergy Severe VOMITING Uncoded 06/13/24 07:07 Percodan Allergy Unknown Vomiting Uncoded 06/13/24 07:07 Review of Systems Review of Systems: All other systems are reviewed and are negative Constitutional: Reports as per HPI and Reports no additional constitutional complaints Eyes: Reports as per HPI and Reports no additional eye complaints Reports system reviewed and no additional complaints, except as documented Cardiovascular: Reports as per HPI and Reports no additional cardiovascular complaints Respiratory: Reports as per HPI and Reports no additional respiratory complaints Gastrointestinal: Reports as per HPI and Reports no additional gastrointestinal complaints Genitourinary: Reports no additional female genitourinary complaints Musculoskeletal: Reports no additional musculoskeletal complaints Skin/Breast: Reports system reviewed and no additional complaints, except as docu Psychiatric: Reports no additional psychiatric complaints Endocrine: Reports no additional endocrine complaints Hematologic/Lymphatic: Reports no additional hematologic/lymphatic complaints Allergic/Immunologic: Reports no additional allergic/immunologic complaints Reports system reviewed and no additional complaints, except as documented and Reports Abnormal speech present [facility] Past Medical History Medical History Hypothyroidism Surgical History S/P cholecystectomy Social History Social History Household Members: Spouse Housing: Apartment Do you presently have visiting nurse or other home services: No Alcohol intake: never Patient Tobacco Use Status: Former Tobacco user Do you have a plan to hurt others: No Plan service: No Physical Exam Vital Signs: Vital Signs: Last Vital Signs Temp 97.5 F 06/13/24 07:01 Pulse 133 H 06/13/24 07:01 Resp 20 06/13/24 07:01 BP 125/78 06/13/24 07:01 Pulse Ox 98 06/13/24 07:01 O2 Del Method Room Air 06/13/24 07:01 BMI result Body Mass Index 25.4 Vital signs have been reviewed and appear to be correct. Blood pressure elevated. Heart rate elevated. Respiratory rate normal. Temperature normal. Oxygen saturation normal. Appearance: Alert. Oriented X3. No acute distress. Head: Normal external exam. Normocephalic. Atraumatic. No Tong signs noted. No raccoon eyes noted Eyes: PERRLA. EOMI. Conjunctiva and sclera normal. Eyelids normal. ENT: TM's Normal. Pharynx normal. Uvula midline. Moist mucous membranes. No trismus noted. No drooling noted. No muffled voice noted. Neck: Normal inspection. Neck supple. FROM. No adenopathy. Thyroid Normal. No meningeal signs. No neck mass noted. CVS: Normal heart rate and rhythm. Heart sound normal. No murmurs noted. Pulses normal throughout. Respiratory: No respiratory distress. Painless inspiration. Breath sounds normal. No wheezes/rales/rhonchi noted. Chest nontender. No accessory muscle usage noted or decreased air movement noted. Abdomen: Soft , diffuse abdominal tenderness, no rebound tenderness, no guarding.Bowel sounds normal in all 4 quadrants. No distention noted. No organomegaly noted. No visible injury noted. Rectal exam: Mucous stool was bright red blood guaiac positive, no external or internal hemorrhoid is appreciated. Back: No CVA tenderness. Full range of motion noted. Skin: Skin warm and dry. Normal skin color. Normal skin turgor. No rashes/lesions/lacerations noted. Extremities: No lower extremity edema. Extremities exhibit normal range of motion. Extremities nontender. Neuro: Oriented X 3. Cranial nerve exam: II-XII are grossly intact No motor deficit. No sensory deficit. Reflexes normal. Course Reevaluation(s) Reevaluation #1: 58-year-old female exam is consistent with recurrent colitis. Plan 1. CT abdomen pelvis rule out perforated viscus or any other surgical complication. 2. pain, vomiting control. 3. Keep monitoring vital signs patient is tachycardic likely secondary to persistent vomiting and dehydration will continue with IV fluids. 4. Type and screen. Time: 07:26 Medical Decision Making Differential Diagnosis Differential Diagnoses: The differential diagnosis associated with the presentation includes ( Colitis, perforated viscus, dehydration, electrolyte derangement, severe anemia, GI bleed, gastritis.) Admission/Observation Consideration of admission/observation: Escalation of care including admission/observation considered Consult Healthcare Provider Management of the patient was discussed with: Hospitalist ( Dr. Nieves) Lab Data MDM Lab Attestation statement: I reviewed the patient's lab results. Discharge Plan Discharge Clinical Impression: Acute colitis Patient Disposition: Admitted As Inpatient Prescriptions: No Action atorvastatin 10 mg tablet 10 mg PO BEDTIME omeprazole 40 mg capsule,delayed release(DR/EC) 40 mg PO DAILY estradiol 1 mg tablet 1 mg PO BID gabapentin 300 mg capsule 300 mg PO TID albuterol sulfate 90 mcg/actuation HFA aerosol inhaler 2 puff INHALATION QID PRN (Reason: Wheezing) levothyroxine 112 mcg tablet 112 mcg PO DAILY Jardiance 25 mg tablet 25 mg PO DAILY Soliqua 100/33 100 unit-33 mcg/mL insulin pen 40 unit subcut DAILY multivitamin Tablet 1 tab PO DAILY aspirin 81 mg Tablet,Delayed Release (Dr/Ec) 81 mg PO DAILY amoxicillin-pot clavulanate 875-125 mg Tablet 1 tab PO Q12H Qty: 14 0RF hydromorphone 2 mg Tablet 1 mg PO Q6H PRN (Reason: Pain, Moderate(Pain Scale 4-6)) Qty: 6 0RF Rx Instructions: Partial Fill upon patient request. ondansetron 4 mg tablet,disintegrating 4 mg PO Q8H PRN (Reason: nausea and vomiting) Qty: 20 0RF hydromorphone [Dilaudid] 2 mg tablet 2 mg PO Q6H PRN (Reason: pain) Qty: 8 0RF Rx Instructions: Partial Fill upon patient request. Print Language: Chilean
[2024-06-13 07:40] LABS: MANUAL DIFF FLAG NO
[2024-06-13 07:42] LABS: OBS Int Ctl Valid YES; OBS1 POSITIVE (NEGATIVE)
[2024-06-13 07:47] LABS: INTERNATIONAL NORM RATIO 0.9 (0.9-1.1); Prothrombin Time 10.7 SEC (10.9-12.4)
[2024-06-13] MEDS: Pantoprazole Sodium 40 MG/10 ML VIAL IVPUSH ×2 (07:49→13:24)
[2024-06-13] MEDS: Ketorolac Tromethamine 15 MG/ML VIAL IVPUSH ×2 (07:49→11:51)
[2024-06-13] MEDS: ondansetron HCL 4 MG/2 ML VIAL IVPUSH (07:49)
[2024-06-13] MEDS: 0.9 % Sodium Chloride 1,000 ML 999 ML IV (07:49)
[2024-06-13 07:57] LABS: Basophils Percent Auto 0.2 % (0-2); Hematocrit 45.4 % (37.0-47.0); Hemoglobin 15.7 g/dl (12.0-16.0); Imm Gran Abs Auto 0.06 X10*3/uL (0.00-0.03); Imm Gran Pct Auto 0.4 % (0.0-0.4); Lymphocytes Absolute Auto 1.8 X10*3/uL (1.2-4.9); Lymphocytes Percent Auto 12.7 % (20-40); Mean Corpuscular HGB Conc 34.6 g/dl (31.0-35.0); Mean Corpuscular Hemoglobin 34.4 pg (27.0-33.0); Mean Corpuscular Volume 99.3 fL (80.0-98.0); Mean Platelet Volume 11.4 fL (9.4-12.3); Monocytes Absolute Auto 0.7 X10*3/uL (0.1-1.2); Monocytes Percent Auto 5.3 % (2-11); Neutrophils Absolute Auto 11.4 x10*3/uL (2.0-8.3); Neutrophils Percent Auto 81.4 % (45-73); Platelet Count 266 X10*3/uL (160-400); Red Blood Count 4.57 X10*6/uL (4.20-5.50)
[2024-06-13 08:03] LABS: Alanine Aminotransferase 17 U/L (0-31); Albumin Level 4.4 g/dL (3.5-5.0); Alkaline Phosphatase 43 U/L (39-117); Anion Gap 23 (12-20); Aspartate Amino Transferase 24 U/L (5-31); Bilirubin Total 0.9 mg/dL (0.0-1.0); Blood Urea Nitrogen 22 mg/dL (9-16); Calcium 9.7 mg/dL (8.4-10.2); Carbon Dioxide 19 mmol/L (22-29); Chloride 106 mmol/L (96-108); Creatinine Clr Calc Pharmacy 55.7; Estimated Glomerular Filt Rate 60; Glucose Random 173 mg/dL (60-115); Magnesium 2.2 mg/dL (1.6-2.6); Potassium 4.3 mmol/L (3.3-5.1); Sodium 144 mmol/L (135-145); Total Protein 7.4 g/dL (6.5-8.0)
--- NOTE | 2024-06-13 08:03 | PC.NURSE ---
Pt biba from home for nausea/vomiting starting around 5pm last night. She also noticed some bright red stool around 11pm last night. States she has a hx of this, was diagnosed with colitis and IBS in the past. Unable to keep food/fluids down. Upon arrival pt vomiting. 20g IV placed in left AC, medicated per MAR with zofran, protonix, toradol, and 1L NS. A/ox4, no increased wob/sob, lung sounds cta bilaterally, s1 and s2 heard, sinus tach on monitoring coordinator, HR-130s, per EMS pt was tachy enroute up to 140s, abdomen tender on palpation, lower abdomen/right sided tenderness. Pt states she has some midline chest pain, no radiation and intermittent. Pt updated on plan for labs, EKG, and CT of abdomen. Call hill within reach, all needs met at this time.
--- NOTE | 2024-06-13 08:08 | PC.NURSE ---
Morphine held d/t pt allergy. made aware.
[2024-06-13 08:10] LABS: Lipase 9 U/L (8-78)
[2024-06-13] MEDS: iohexoL 350 MG/ML 100 ML INFUS..BTL IV (08:16)
[2024-06-13 08:19] LABS: B Type Natriuretic Peptide 260 pg/mL (<100)
[2024-06-13 09:08] LABS: Lactic Acid 1.7 mmol/L (0.5-2.0)
[2024-06-13 12:00] LABS: Appearance Urine Clear; Color Urine Yellow; Glucose Urine UA >=1000 mg/dL (Negative); Leukocyte Esterase Urine Negative (Negative); Nitrite Urine Negative (Negative); Specific Gravity - Urine >= 1.030 (1.005-1.025); UMIC TRIGGER UACC YES; Urine Blood Negative (Negative); Urine Ketones >=160 mg/dL (Negative); Urine Protein Trace mg/dL (Neg-Trace)
[2024-06-13 12:14] LABS: Bacteria Urine 1+ (None Seen); Hyaline Casts Urine 0-2 /LPF (0-2); RBC Urine 0-2 /HPF (0-2); WBC Urine 0-5 /HPF (0-5)
[2024-06-13] MEDS: Lactated Ringers 1,000 ML 100 ML IVCONT ×2 (12:26→21:52)
[2024-06-13] MEDS: HYDROmorphone HCl 0.5 MG/0.5 ML SYRINGE 0.25 MG IVPUSH ×3 (12:36→22:34)
[2024-06-13] MEDS: cefTRIAXone sodium 1 GM in 0.9 % Sodium Chloride 50 ML IV (12:37)
[2024-06-13 12:39] LABS: TSH reflex Free T4 1.57 uIU/mL (0.32-4.0)
[2024-06-13 12:41] LABS: Troponin-I High Sensitivity 347.4 ng/L (<3.5-17.0)
--- NOTE | 2024-06-13 12:57 | PM.IMHP ---
History of Present Illness Date of Service: 06/13/24 Attending physician on admission: Chace Lizbeth Chief Complaint: N/V/D, rectal bleeding; chest pain This is a 58-year-old female with history of type 2 diabetes who presents to the emergency department with nausea, vomiting, diarrhea and rectal bleeding. Patient states her symptoms began yesterday around 17:00. She began having lower crampy abdominal pain with associated nausea and vomiting followed by bright red blood per rectum mixed with stool. She had multiple episodes of bloody diarrhea, which she describes as mucus consistency. She has had multiple episodes of vomiting as well. She denies any recent travel or recent sick contacts. She was admitted 1 year ago to the hospital with colitis but has not had any rectal bleeding since that admission. In the emergency department she received IV ceftriaxone multiple doses of Toradol and Protonix. CT scan with IV contrast showed no acute intra-abdominal pathology. Lab work was significant for leukocytosis of 14,000. Patient was also noted to be tachycardic, EKG initially revealed sinus tachycardia. Patient reported chest pain described as chest pressure across the front of her chest, somewhat reproducible on exam. Repeat EKG obtained showed new T-wave inversions in leads V3-and V6. Troponin was obtained and was 347.4. She will be admitted for further management of rectal bleeding and chest pain. Review of Systems Review of Systems: Yes all other systems are reviewed and are negative Constitutional: Constitutional: Denies chills and Denies fever(s) [facility] Medical History (Updated 06/13/24 @ 13:22 by SANKET Castillo) Hypothyroidism Surgical History S/P cholecystectomy Social History Household Members: Spouse Housing: Apartment Do you presently have visiting nurse or other home services: No Alcohol intake: never Patient Tobacco Use Status: Former Tobacco user Smoked in Last 30 Days: No Use of substances other than those prescribed or required for medical reasons: No Advance Directives: No Advance Directives Information Provided: No Do you have a plan to hurt others: No Plan service: No Meds Allergies Allergy/AdvReac Type Severity Reaction Status Date / Time acetaminophen [From PERCOCET] Allergy Severe VOMITING Verified 06/13/24 07:07 codeine [Codeine] Allergy Mild HYPERVENTIL Verified 06/13/24 07:07 ATE meperidine [From Demerol] Allergy Mild VOMITING Verified 06/13/24 07:07 AND FEVER morphine [Morphine] Allergy Mild VOMITING,DE Verified 06/13/24 07:07 LUSSONAL lisinopril Allergy Dizziness Verified 06/13/24 07:07 oxycodone [OXYCODONE] AdvReac Mild NAUSEA & Verified 06/13/24 07:07 VOMITING From PERCOCET Allergy Severe VOMITING Uncoded 06/13/24 07:07 Percodan Allergy Unknown Vomiting Uncoded 06/13/24 07:07 Active Medications: Current Medications Glucose (Glucose Gel 15 Gm Gel..Gram.) 15 gm PO Q15M PRN; Protocol PRN Reason: per Hypoglycemia Standing Ord. Hydromorphone HCl (Hydromorphone Hcl 0.5 Mg/0.5 Ml Syringe) 0.25 mg IVPUSH Q4H PRN; Protocol PRN Reason: Pain, Severe (Pain Scale 7-10) Last Admin: 06/13/24 12:36 Dose: 0.25 mg Lactated Ringer's (Lr) 1,000 mls @ 100 mls/hr IVCONT .Q10H [facility] Last Admin: 06/13/24 12:26 Dose: 100 mls/hr Dextrose (D10) 250 mls @ 750 mls/hr IV Q15M PRN; Protocol PRN Reason: per Hypoglycemia Standing Ord. Ceftriaxone Sodium 1 gm/ (Sodium Chloride) 50 mls @ 100 mls/hr IV Q24H [facility] Last Admin: 06/13/24 12:37 Dose: 100 mls/hr Metronidazole (Flagyl) 500 mg in 100 mls @ 100 mls/hr IV Q8H [facility] Melatonin (Melatonin 3 Mg Tablet) 6 mg PO BEDTIME PRN PRN Reason: Insomnia Pantoprazole Sodium (Pantoprazole Sodium 40 Mg/10 Ml Vial) 40 mg IVPUSH DAILY@0630 [facility] Sodium Chloride (0.9 % Sodium Chloride Flush 3 Ml Syringe) 3 ml IVFLUSH QSHIFT [facility] Home Medications ?Medication ?Instructions ?Recorded ?Confirmed ?Last Taken ?Type albuterol sulfate 90 mcg/actuation 2 puff inhalation QID PRN Wheezing 05/13/23 05/13/23 2 Days Ago History aerosol inhaler ~05/11/23 aspirin 81 mg tablet,delayed 81 mg PO DAILY 05/13/23 05/13/23 2 Days Ago History release ~05/11/23 atorvastatin 10 mg tablet 10 mg PO BEDTIME 05/13/23 05/13/23 2 Days Ago History ~05/11/23 empagliflozin 25 mg tablet 25 mg PO DAILY 05/13/23 05/13/23 2 Days Ago History (Jardiance) ~05/11/23 estradiol 1 mg tablet 1 mg PO BID 05/13/23 05/13/23 2 Days Ago History ~05/11/23 gabapentin 300 mg capsule 300 mg PO TID 05/13/23 05/13/23 2 Days Ago History ~05/11/23 insulin glargine 100 40 unit subcut DAILY 05/13/23 05/13/23 2 Days Ago History unit-lixisenatide 33 mcg/mL ~05/11/23 subcutaneous pen (Soliqua 100/33) levothyroxine 112 mcg tablet 112 mcg PO DAILY 05/13/23 05/13/23 2 Days Ago History ~05/11/23 multivitamin 1 tab PO DAILY 05/13/23 05/13/23 2 Days Ago History ~05/11/23 omeprazole 40 mg capsule,delayed 40 mg PO DAILY 05/13/23 05/13/23 2 Days Ago History release ~05/11/23 Physical Exam Vital Signs and Narrative: Vital Signs: Last Vital Signs Temp 97.8 F 06/13/24 09:28 Pulse 130 H 06/13/24 09:28 Resp 16 06/13/24 12:36 BP 111/75 06/13/24 09:28 Pulse Ox 98 06/13/24 09:28 O2 Del Method Room Air 06/13/24 07:01 BMI result Body Mass Index 25.4 Const: Other: Appears uncomfortable General: alert and awake Nutritional Appearance: average body habitus Orientation/consciousness: patient oriented x3 Chest: Other: Mild palpation across anterior chest reported as feeling tender and bruised Resp: Effort & Inspection: normal respiratory effort, able to speak in complete sentences, no respiratory distress and no use of accessory muscles Auscultation: clear to auscultation bilaterally Cardio: Rate: tachycardic GI: Inspection: No distended Palpation (GI): Soft to palpation and nontender Neuro: General: patient oriented x3, moves all extremities and CN's II-XI intact bilaterally Extrem: General: Yes no pedal edema Results Labs 06/13/24 07:21 06/13/24 07:21 Labs: Laboratory Results - last 24 hr 06/13/24 06/13/24 06/13/24 07:21 07:22 07:39 MCV 99.3 H MCH 34.4 H MCHC 34.6 RDW 12.0 Plt Count 266 D MPV 11.4 Immature Gran % (Auto) 0.4 Neut % (Auto) 81.4 H Lymph % (Auto) 12.7 L [place] % (Auto) 5.3 Eos % (Auto) 0.0 Baso % (Auto) 0.2 Lymph # (Auto) 1.8 [place] # (Auto) 0.7 Eos # (Auto) 0.0 Baso # (Auto) 0.0 Abs Immat Gran (auto) 0.06 H Absolute Neuts (auto) 11.4 H Absolute Nucleated RBC 0.000 Nucleated RBC % (auto) 0.0 PT 10.7 L INR 0.9 Anion Gap 23 H Estim Creat Clear Calc 55.7 Estimated GFR 60 Random Glucose 173 H Lactic Acid Calcium 9.7 Magnesium 2.2 Total Bilirubin 0.9 AST 24 ALT 17 Alkaline Phosphatase 43 Troponin I High Sens B-Natriuretic Peptide 260 H Total Protein 7.4 Albumin 4.4 Lipase 9 TSH 1.57 Urine Color Urine Appearance Urine pH Ur Specific [place] Urine Protein Urine Glucose (UA) Urine Ketones Urine Blood Urine Nitrite Ur Leukocyte Esterase Urine RBC Urine WBC Ur Squamous Epith Cells Urine Bacteria Hyaline Casts Stool Occult Blood POSITIVE Blood Type Antibody Screen 06/13/24 06/13/24 06/13/24 08:44 11:54 12:12 MCV MCH MCHC RDW Plt Count MPV Immature Gran % (Auto) Neut % (Auto) Lymph % (Auto) [place] % (Auto) Eos % (Auto) Baso % (Auto) Lymph # (Auto) [place] # (Auto) Eos # (Auto) Baso # (Auto) Abs Immat Gran (auto) Absolute Neuts (auto) Absolute Nucleated RBC Nucleated RBC % (auto) PT INR Anion Gap Estim Creat Clear Calc Estimated GFR Random Glucose Lactic Acid 1.7 Calcium Magnesium Total Bilirubin AST ALT Alkaline Phosphatase Troponin I High Sens 347.4 H* D B-Natriuretic Peptide Total Protein Albumin Lipase TSH Urine Color Yellow Urine Appearance Clear Urine pH 5.0 Ur Specific [place] >= 1.030 H Urine Protein Trace Urine Glucose (UA) >=1000 H Urine Ketones >=160 Urine Blood Negative Urine Nitrite Negative Ur Leukocyte Esterase Negative Urine RBC 0-2 Urine WBC 0-5 Ur Squamous Epith Cells 3-5 Urine Bacteria 1+ Hyaline Casts 0-2 Stool Occult Blood Blood Type O Positive Antibody Screen NEGATIVE Imaging Radiologist's Impressions: Impressions Abdomen/Pelvis CT 06/13/24 07:18 IMPRESSION: 1. No CT evidence for acute abnormality within the abdomen or pelvis. 2. The colon is decompressed and therefore not optimally characterized, however, there appears to be diffuse fatty mucosal infiltration throughout the colon, nonspecific. Fleischner guidelines were followed. Electronically signed by: Perez Nelson MD 06/13/2024 08:41 AM EDT RP Assessment and Plan (1) BRBPR (bright red blood per rectum): Status: Acute (2) Chest pain: Status: Acute Plan This is a 58-year-old female with history of type 2 diabetes, hypothyroidism who presents to the emergency department with complaints of nausea, vomiting, diarrhea, rectal bleeding and chest pain he will be admitted for further management of rectal bleeding and chest pain Nausea, vomiting, diarrhea & abdominal pain CT scan with no acute intra-abdominal pathology although colon not well characterized on CT imaging Possible viral syndrome, gastroenteritis, colitis, diverticulitis History of colitis which she reports feels similar Nausea/vomiting seems to have improved at this time Has tachycardia and leukocytosis, normal lactic acid ? reactive from vomiting/volume depletion NPO diet, IV fluid, antiemetics, IV analgesics Empiric antibiotics, ceftriaxone and Flagyl Check stool studies GI consult pending Rectal bleeding no hemorrhoids per ED exam possible colitis as above H/H normal at this time, repeat this afternoon Follow CBC Type and cross obtained If active bleeding would recommend CT angiogram and IR embolization if positive Chest pain New EKG changes -nonspecific per cardiology Initial troponin 350 - likely demand related Will trend troponin, obtain Echocardiogram Cardiology consult pending Blood pressure soft, we will avoid beta-cameron Unable to give aspirin due to above rectal bleeding Sinus tachycardia Likely reactive from vomiting/volume depletion check TSH Type 2 diabetes olegario Hogan non formulary-on hold SSI,POCs currently NPO, we will hold off on sliding scale for now Hypothyroidism Resume Synthroid when med rec Complete DVT prophylaxis-mechanical due to rectal bleeding Code status-full code Patient will likely require 2 midnight stay in the hospital for management of rectal bleeding, abdominal pain, chest pain requiring multiple specialist evaluation Quality Stroke Does the patient have a stroke diagnosis?: No VTE Prior VTE?: No VTE Risk Level:: Medical - moderate - high VTE Device Contraindication: N/A - Device Ordered VTE Drug Contraindication: Treatment Not Indicated
[2024-06-13] MEDS: metroNIDAZOLE/NS 500 MG/100 ML PIGGYBACK 100 MG IV ×2 (13:21→20:48)
[2024-06-13 13:26] LABS: Cholesterol 162 mg/dL (<200); HDL Cholesterol 56 mg/dL (>40); LDL Cholesterol Calculated 90 mg/dL (<100); Triglycerides 83 mg/dL (<150)
[2024-06-13 13:57] LABS: Glucose, Whole Blood 136 mg/dL (60-115)
[2024-06-13 14:03] LABS: Estimated Average Glucose 131 mg/dL; Hemoglobin A1C 168.4017 umol/L; Hemoglobin A1c % 6.2 % (<6.0)
--- NOTE | 2024-06-13 15:23 | PC.NURSE ---
Pt bp 95/60, taken multiple times bilaterally, 90s/60s. SANKET Lan made aware, increase fluid rate to 125ml/hr.
[2024-06-13 15:35] LABS: MANUAL DIFF FLAG NO
[2024-06-13 15:38] LABS: Basophils Percent Auto 0.2 % (0-2); Hemoglobin 13.8 g/dl (12.0-16.0); Imm Gran Abs Auto 0.07 X10*3/uL (0.00-0.03); Imm Gran Pct Auto 0.5 % (0.0-0.4); Lymphocytes Absolute Auto 1.6 X10*3/uL (1.2-4.9); Lymphocytes Percent Auto 11.8 % (20-40); Mean Corpuscular HGB Conc 34.5 g/dl (31.0-35.0); Mean Corpuscular Hemoglobin 34.2 pg (27.0-33.0); Monocytes Absolute Auto 0.9 X10*3/uL (0.1-1.2); Monocytes Percent Auto 6.4 % (2-11); Neutrophils Absolute Auto 10.8 x10*3/uL (2.0-8.3); Neutrophils Percent Auto 81.1 % (45-73); Platelet Count 214 X10*3/uL (160-400); Red Blood Count 4.04 X10*6/uL (4.20-5.50); Red Cell Distribution Width 12.1 % (11.0-16.0); White Blood Count 13.3 X10*3/uL (4.8-10.8)
[2024-06-13 15:54] LABS: Anion Gap 20 (12-20); Blood Urea Nitrogen 21 mg/dL (9-16); Calcium 8.7 mg/dL (8.4-10.2); Carbon Dioxide 17 mmol/L (22-29); Chloride 112 mmol/L (96-108); Creatinine Clr Calc Pharmacy 70.4; Estimated Glomerular Filt Rate > 60; Glucose Random 138 mg/dL (60-115); Potassium 3.9 mmol/L (3.3-5.1); Sodium 145 mmol/L (135-145)
[2024-06-13 16:13] LABS: Troponin-I High Sensitivity 378.6 ng/L (<3.5-17.0)
--- NOTE | 2024-06-13 16:48 | PHA.MEDREC ---
Addendum entered by Surinder Alonso 06/13/24 17:10: reviewed Original Note: Pharmacy Consult ? Medication Reconciliation Pharmacy has completed the medication reconciliation. 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
[2024-06-13 21:05] LABS: Glucose, Whole Blood 119 mg/dL (60-115)
[2024-06-14] VITALS (9 sets, daily range): BP systolic 85–135; BP diastolic 50–85; PULSE 95–126; RESP 15–20; TEMP 36.2–37.2; O2SAT 95–99
--- NOTE | 2024-06-14 | ECG_ITS ---
Test Reason : hypotension Blood Pressure : / mmHG Vent. Rate : 103 BPM Atrial Rate : 103 BPM P-R Int : 158 ms QRS Dur : 086 ms QT Int : 426 ms P-R-T Axes : 080 022 242 degrees QTc Int : 558 ms Sinus tachycardia Low voltage QRS Septal infarct (cited on or before 13-JUN-2024) T wave abnormality, consider inferior ischemia T wave abnormality, consider anterolateral ischemia Prolonged QT Abnormal ECG When compared with ECG of 13-JUN-2024 12:01, Serial changes of Septal infarct Present T wave inversion more evident in Inferior leads T wave inversion more evident in Anterolateral leads Referred By: Onesimo Nguyen Electronically Signed By:AUGUSTO DELUCA
[2024-06-14 01:00] LABS: Lactic Acid 0.9 mmol/L (0.5-2.0)
[2024-06-14] MEDS: Lactated Ringers 1,000 ML 999 ML IV ×2 (01:33→06:07)
[2024-06-14] MEDS: metroNIDAZOLE/NS 500 MG/100 ML PIGGYBACK 100 MG IV ×3 (04:31→20:26)
[2024-06-14 04:39] LABS: Glucose, Whole Blood 96 mg/dL (60-115)
[2024-06-14 05:59] LABS: Hematocrit 37.8 % (37.0-47.0); Hemoglobin 12.7 g/dl (12.0-16.0)
[2024-06-14] MEDS: Levothyroxine Sodium 112 MCG TABLET PO (06:06)
[2024-06-14 06:13] LABS: Alanine Aminotransferase 17 U/L (0-31); Albumin Level 3.5 g/dL (3.5-5.0); Alkaline Phosphatase 35 U/L (39-117); Anion Gap 15 (12-20); Aspartate Amino Transferase 21 U/L (5-31); Bilirubin Total 0.7 mg/dL (0.0-1.0); Blood Urea Nitrogen 18 mg/dL (9-16); Calcium 8.4 mg/dL (8.4-10.2); Carbon Dioxide 15 mmol/L (22-29); Chloride 116 mmol/L (96-108); Creatinine Clr Calc Pharmacy 75.3; Estimated Glomerular Filt Rate > 60; Glucose Random 102 mg/dL (60-115); Potassium 4.1 mmol/L (3.3-5.1); Sodium 142 mmol/L (135-145); Total Protein 5.7 g/dL (6.5-8.0)
[2024-06-14] MEDS: Lactated Ringers 1,000 ML 100 ML IVCONT ×2 (06:44→17:09)
[2024-06-14] MEDS: Pantoprazole Sodium 40 MG/10 ML VIAL IVPUSH (06:46)
--- NOTE | 2024-06-14 07:00 | CA_ITS ---
Transthoracic Echocardiogram Patient (Last, First, Middle): Milagros Fofana M Gender: Female Date of : 1965 Age: 58 Procedure Date: 06/14/2024 Procedure Type: Transthoracic Echocardiogram Location: ER Height: 157.48 cm Weight: 63.05 kg BSA: 1.64 m2 Heart Rate: 116 bpm BP: 97 / 60 mmHg Three Dimensional Map Modeler: LISSET Referring MD: Edyta COLES Symptoms: chest pain Study Quality: Adequate w contrast ECG Rhythm: Tachycardia Conclusions: - 1. Moderate to severe LV systolic dysfunction with regional wall motion abnormality in multiple territories, us findings suggestive of stress-induced cardiomyopathy 2. Normal cardiac valvular Dopplers 3. Normal RV systolic pressure 4. Upper limits of normal ascending aortic size 5. No gross pericardial effusion Findings Procedure Information Contrast agent, definity, is being given per protocol without apparent complications. Left Ventricle Normal left ventricular cavity size. There is normal left ventricular wall thickness. The left ventricular systolic function is severely decreased. The visually estimated ejection fraction is between 30-35%. Diastolic function is indeterminate on the basis of available data. Wall Motion Rest Echo Findings The entire apex, the mid anterior, mid inferior, mid anterolateral, mid inferoseptal, mid anteroseptal, and mid inferolateral segments are akinetic. All other scored wall segments showed normal motion. Right Ventricle Normal right ventricular cavity size. There is mildly decreased right ventricular systolic function. Atria Both atria are normal in size. There is no evidence of interatrial shunt. Aortic Valve Normal aortic valve structure and function. There is no aortic valve stenosis. There is no aortic valve regurgitation. Mitral Valve Normal mitral valve structure and function. There is trace mitral valve regurgitation. There is no mitral valve stenosis. Pulmonic Valve The pulmonic valve is likely normal. There is trace pulmonic valve regurgitation. Tricuspid Valve Normal tricuspid valve structure. There is mild tricuspid valve regurgitation. The right ventricular systolic pressure is normal. The right ventricular systolic pressure is 24 mmHg. Normal right atrial pressure. There is no evidence of pulmonary hypertension. Great Vessels The pulmonary artery was not well visualized. There is no dilatation of the ascending aorta measuring 3.50 cm. Venous The inferior vena cava is normal in size and collapses greater than 50% with inspiration. Pericardium/Pleural There is no evidence of pericardial effusion. Prior Study Comparison No prior study available for comparison. Measurements 2D Linear Measurements IVSd: 1.18 0.6-0.9/0.6-1.0 cm LVIDd: 3.78 3.9-5.3/4.2-5.9 cm LVIDd Index: 2.30 2.4-3.2/2.2-3.1 cm/m2 LVIDs: 2.62 2.0-3.6 cm LVPWd: 1.00 0.7-1.1 cm LA Diam: 2.50 2.7-3.8/3.0-4.0 cm LAIDs Index: 1.52 1.5-2.3 cm/m2 LV Mass: 164.01 67-162/88-224 g LV Mass Index: 100.00 43-95/49-115 g/m2 LVOT Diam: 2.10 3.0+(-)1.3 cm 2D Systolic Function EF 4C: 26.80 >55% EF 2C: 35.80 >55% EF BiP: 32.70 >55% Mitral Valve MV VTI: 0.25 MV Pk Mehran: 1.58 MV Mn Mehran: 0.84 MV Pk Grad: 10.00 MV Mn Grad: 4.00 MV Pk E: 1.41 MV Decel Time: 110.00 E'Lateral: 10.20 E'Medial: 9.90 E/E' Med: 14.20 E/E' Lat: 13.80 PHT: 32.00 MVA PHT: 6.88 MVA Continuity: 1.61 Decel Arroyo: 12.75 Aortic Valve AoV Pk Mehran: 1.04 AoV Mn Mehran: 0.72 AoV VTI: 0.15 AoV Pk Grad: 4.00 Aov Mn Grad: 2.00 MARCUS Cont.VTI: 2.67 LVOT LVOT Pk Mehran: 0.68 LVOT Mn Mehran: 0.48 LVOT VTI: 0.12 LVOT Pk Grad: 2.00 LVOT Mn Grad: 1.00 LVOT Diam: 2.10 LVOT Area: 3.46 Diastolic Function MV Pk E: 1.41 E'Medial: 9.90 E/E' Med: 14.20 E' Laterial: 10.20 E/E' Lat: 13.80 Right Ventricle TAPSE (mm): 15.40 TVS' Mehran: 11.50 Tricuspid Valve TR Pk Mehran: 2.02 TR Pk Grad: 16.00 RA Press: 8.00 RVSP: 24.00 Great Vessels Aorta Sinus of Valsalva: 3.40 2.0-3.5 cm Ao Asc: 3.50 2.1-3.4 cm Pulmonary Valve PV Pk Mehran: 0.76 Peak PV Grad: 2.00 Updated in Other Vendor System with Status of Final Tanner Huddleston MD electronically signed on 06/14/2024 11:05:46 AM with status of Final
--- NOTE | 2024-06-14 07:16 | PM.GICN ---
History of Present Illness Data of Consult Service Date: 06/14/24 Primary Care Provider: SANKET Desai HPI Reason for consult: rectal bleeding 58-year-old female with history of type 2 diabetes who I am seeing for rectal bleeding Patient had been planning for a move to [place] when few days back she suddenly began having lower throbbing abdominal pain in LLQ and suprpaubic area with associated nausea and vomiting followed by bright red blood per rectum mixed with stool x 15 times or so. She has had multiple episodes of vomiting as well which has subsided. She denies any recent travel or recent sick contacts Prior to this episode she had been constipated for few days She also noted a dullness in the chest with SOB, but no sputum or radiation to arm or neck. Patient had a similar episode of abdominal pain a year ago minus chest discomfort and was dx with colitis. Last colonoscopy 2-3 yrs ago at [facility] with polyps removed This admission : LABS: raised WCC-14, raised trop 347 IMAGING: non specific --decompressed colon, fatty infiltration ECG: new T-wave inversions in leads V3-and V6 ECHO- moderate to severe systolic dysfn concern for tako tsubo Review of Systems Review of Systems: Constitutional : No Weight loss, No Fever, No Chills ENT/Mouth : No sore throat, No Rhinorrhea Eyes: No Swelling, No Redness Cardiovascular : + Chest Pain, + SOB, No Edema Respiratory : No Cough, No Sputum, No Wheezing Gastrointestinal : see HPI Genitourinary : NO Dysuria, No Urinary Frequency, No Hematuria, No Urgency Musculoskeletal : no joint pain, No Myalgias, No Joint Swelling Skin : No Skin Lesions, No rash Neuro : No Weakness, No Numbness, No Dizziness, No Headache Psych : No Anxiety/Panic, No Depression Heme/Lymph: No Bruising, No Lymphadenopathy Endocrine : No Polyuria, No Polydipsia All other systems reviewed and are negative. [facility] Past Medical History Medical History Hypothyroidism Family History Pertinent family history: no Fh of CRC, IBD Surgical History Surgical History S/P cholecystectomy Social History Social History Household Members: Family Housing: House Do you presently have visiting nurse or other home services: No Alcohol intake: never Patient Tobacco Use Status: Former Tobacco user service: No Meds Allergies Allergy/AdvReac Type Severity Reaction Status Date / Time acetaminophen [From PERCOCET] Allergy Severe VOMITING Verified 06/13/24 07:07 codeine [Codeine] Allergy Mild HYPERVENTIL Verified 06/13/24 07:07 ATE meperidine [From Demerol] Allergy Mild VOMITING Verified 06/13/24 07:07 AND FEVER morphine [Morphine] Allergy Mild VOMITING,DE Verified 06/13/24 07:07 LUSSONAL lisinopril Allergy Dizziness Verified 06/13/24 07:07 oxycodone [OXYCODONE] AdvReac Mild NAUSEA & Verified 06/13/24 07:07 VOMITING From PERCOCET Allergy Severe VOMITING Uncoded 06/13/24 07:07 Percodan Allergy Unknown Vomiting Uncoded 06/13/24 07:07 Active Medications: Current Medications Albuterol Sulfate (Albuterol Sulfate 90 Mcg 8 Gm Inhaler) 2 puff INHALE QID PRN PRN Reason: Wheezing Glucose (Glucose Gel 15 Gm Gel..Gram.) 15 gm PO Q15M PRN; Protocol PRN Reason: per Hypoglycemia Standing Ord. Hydromorphone HCl (Hydromorphone Hcl 0.5 Mg/0.5 Ml Syringe) 0.25 mg IVPUSH Q4H PRN; Protocol PRN Reason: Pain, Severe (Pain Scale 7-10) Last Admin: 06/13/24 22:34 Dose: 0.25 mg Lactated Ringer's (Lr) 1,000 mls @ 125 mls/hr IVCONT .Q8H [facility] Last Admin: 06/14/24 06:44 Dose: 100 mls/hr Dextrose (D10) 250 mls @ 750 mls/hr IV Q15M PRN; Protocol PRN Reason: per Hypoglycemia Standing Ord. Ceftriaxone Sodium 1 gm/ (Sodium Chloride) 50 mls @ 100 mls/hr IV Q24H [facility] Last Infusion: 06/13/24 13:21 Dose: Infused Metronidazole (Flagyl) 500 mg in 100 mls @ 100 mls/hr IV Q8H [facility] Last Infusion: 06/14/24 06:07 Dose: Infused Levothyroxine Sodium (Levothyroxine Sodium 112 Mcg Tablet) 112 mcg PO DAILY@0600 [facility] Last Admin: 06/14/24 06:06 Dose: 112 mcg Melatonin (Melatonin 3 Mg Tablet) 6 mg PO BEDTIME PRN PRN Reason: Insomnia Pantoprazole Sodium (Pantoprazole Sodium 40 Mg/10 Ml Vial) 40 mg IVPUSH DAILY@0630 [facility] Last Admin: 06/14/24 06:46 Dose: 40 mg Prochlorperazine Edisylate (Prochlorperazine Edisylate 10 Mg/2 Ml Vial) 5 mg IVPUSH Q6H PRN PRN Reason: Nausea and Vomiting Sodium Chloride (0.9 % Sodium Chloride Flush 3 Ml Syringe) 3 ml IVFLUSH QSHIFT [facility] Last Admin: 06/14/24 01:28 Dose: Not Given Home Medications ?Medication ?Instructions ?Recorded ?Confirmed ?Last Taken ?Type albuterol sulfate 90 mcg/actuation 2 puff inhalation QID PRN Wheezing 05/13/23 06/13/24 2 Days Ago History aerosol inhaler ~05/11/23 aspirin 81 mg tablet,delayed 81 mg PO DAILY 05/13/23 06/13/24 06/12/24 History release atorvastatin 10 mg tablet 10 mg PO BEDTIME 05/13/23 06/13/24 06/12/24 History empagliflozin 25 mg tablet 25 mg PO DAILY 05/13/23 06/13/24 06/12/24 History (Jardiance) estradiol 1 mg tablet 1 mg PO DAILY 05/13/23 06/13/24 06/12/24 History levothyroxine 112 mcg tablet 112 mcg PO DAILY@0600 05/13/23 06/13/24 06/12/24 History multivitamin 1 tab PO DAILY 05/13/23 06/13/24 06/12/24 History omeprazole 40 mg capsule,delayed 40 mg PO DAILY@0630 05/13/23 06/13/24 06/12/24 History release insulin glargine U-300 conc 300 15 unit subcut DAILY 06/13/24 06/13/24 06/12/24 History unit/mL (1.5 mL) subcutaneous pen (Edison Diggs U-300 Insulin) losartan 50 mg tablet 50 mg PO DAILY 06/13/24 06/13/24 06/12/24 History tirzepatide 5 mg/0.5 mL 5 mg subcut MO@0900 06/13/24 06/13/24 06/07/24 History subcutaneous pen injector (Cristino) Physical Exam Vital Signs: Vital Signs: Last Vital Signs Temp 97.9 F 06/14/24 05:53 Pulse 103 H 06/14/24 05:53 Resp 15 06/14/24 05:53 BP 99/60 06/14/24 05:53 Pulse Ox 98 06/14/24 05:53 O2 Del Method Room Air 06/14/24 05:53 BMI result Body Mass Index 25.4 EXAM: GENERAL: The patient is well developed and nontoxic. VITAL SIGNS:see workflow HEENT: Nonicteric sclerae, PERRLA, EOMI. Oropharynx clear. Moist mucous membranes. Conjunctivae appear well perfused. No thyroid mass. CHEST: Chest wall is nontender. HEART: Regular rate and rhythm without murmurs. LUNGS: Clear to auscultation bilaterally. ABDOMEN: Soft, positive bowel sounds, gen tender, no organomegaly.no flank tenderness SKIN: No rash, no excessive bruising, petechiae, or purpura. NEUROLOGIC: Cranial nerves II-XII intact without motor/sensory deficit. Psych: normal affect Results Labs 06/14/24 05:42 06/14/24 05:42 Labs: Short CBC 06/13/24 06/13/24 06/14/24 Range/Units 07:21 15:31 05:42 WBC 14.0 H 13.3 H (4.8-10.8) X10*3/uL Hgb 15.7 13.8 12.7 (12.0-16.0) g/dl Hct 45.4 40.0 37.8 (37.0-47.0) % Plt Count 266 D 214 (160-400) X10*3/uL BMP 06/13/24 06/13/24 06/14/24 07:21 15:31 05:42 Sodium 144 145 142 Potassium 4.3 3.9 4.1 Chloride 106 112 H 116 H Carbon Dioxide 19 L 17 L 15 L BUN 22 H 21 H 18 H Creatinine 0.96 0.76 0.71 Calcium 9.7 8.7 D 8.4 Liver Function 06/13/24 06/14/24 Range/Units 07:21 05:42 Total Bilirubin 0.9 0.7 (0.0-1.0) mg/dL AST 24 21 (5-31) U/L ALT 17 17 (0-31) U/L Alkaline Phosphatase 43 35 L (39-117) U/L Albumin 4.4 3.5 (3.5-5.0) g/dL Urine 06/13/24 Range/Units 11:54 Urine Color Yellow Urine Appearance Clear Urine pH 5.0 (5.0-9.0) Ur Specific [place] >= 1.030 H (1.005-1.025) Urine Protein Trace (Neg-Trace) mg/dL Urine Glucose (UA) >=1000 H (Negative) mg/dL ECG Attestation: I personally reviewed and interpreted this ECG as follows: (infero lateral T wave INversion) Imaging CT scan - abdomen: Attestation: I personally reviewed and interpreted this imaging study as follows: (decompressed bowel) Assessment and Plan (1) BRBPR (bright red blood per rectum): Status: Acute (2) Elevated troponin: Status: Acute Plan 1/ Acute rectal bleeding with chest pain, suspect this is ischemic colitis from tako tsubo and dehysration, constipation PLAN: 1/ supportive care with fluids, cardiac optimization, aspirin once rectal bleeding subsides, avoid over aggressive BP control 2/ o/p colonoscopy at some point in the future when her cardiac fn improves Procedures Date of Service Date of Service: 06/14/24
--- NOTE | 2024-06-14 08:22 | PC.NURSE ---
sleeping. skin pwd. chest rise noted
--- NOTE | 2024-06-14 09:53 | PM.CNCAR ---
History of Present Illness History of Present Illness Date of Service: 06/14/24 Requesting physician: Gabbie Jung Consult reason: chest pain and troponin elevation Chief complaint: N/V/D, rectal bleeding, chest pain Narrative: I was consulted to see Milagros in cardiology consultation today for elevated troponin and chest pain with abnormal EKG. She is a pleasant 58-year-old female who last year was diagnose with acute pancolitis as per her with no obvious underlying clinical diagnosis and subsequently was being treated outpatient. She has developed symptoms of IBS as per her since then. She has prior history of insulin-requiring diabetes, presented to the hospital with abdominal pain, nausea vomiting diarrhea bleeding per rectum. Patient came in with acute colitis. Was tachycardic. Subsequently developed chest pain EKG showed diffuse T-wave inversion with L elevated troponin in the mid 300 range. Follow-up troponins is still flat in the mid 300 range. She has not had any chest pain syndrome. Cardiology consult was sought because of chest pain with abnormal troponin and EKG. She has no prior history of cardiovascular issues as per her. She has no prior cardiovascular events. Takes his medications regularly. She has received plenty of fluid resuscitation so far. Denies any shortness of breath, lightheadedness, palpitations . She also has lot of personal stress as she was planning to move to [place] today Review of Systems Constitutional: Constitutional: Reports fatigue Eyes: Eyes: Reports no additional eye complaints Cardiovascular: Cardiovascular: Reports chest pain at rest (Resolved), Denies leg edema and Denies dyspnea Respiratory: Respiratory: Denies dyspnea Gastrointestinal: Gastrointestinal: Reports hematochezia, Reports diarrhea, Reports nausea and Reports vomiting Musculoskeletal: Musculoskeletal: Reports no additional musculoskeletal complaints Neurologic: Reports system reviewed and no additional complaints, except as documented Psychiatric: Psychiatric: Reports anxiety Endocrine: Endocrine: Reports fatigue PMFSH Past Medical History Medical History Hypothyroidism Surgical History Surgical History S/P cholecystectomy Social History Social History Household Members: Spouse Housing: Apartment Do you presently have visiting nurse or other home services: No Alcohol intake: never Patient Tobacco Use Status: Former Tobacco user Smoked in Last 30 Days: No Use of substances other than those prescribed or required for medical reasons: No Advance Directives: No Advance Directives Information Provided: No Do you have a plan to hurt others: No Plan Nutrition Risks: No Nutritional Risk service: No Meds Allergies Allergy/AdvReac Type Severity Reaction Status Date / Time acetaminophen [From PERCOCET] Allergy Severe VOMITING Verified 06/13/24 07:07 codeine [Codeine] Allergy Mild HYPERVENTIL Verified 06/13/24 07:07 ATE meperidine [From Demerol] Allergy Mild VOMITING Verified 06/13/24 07:07 AND FEVER morphine [Morphine] Allergy Mild VOMITING,DE Verified 06/13/24 07:07 LUSSONAL lisinopril Allergy Dizziness Verified 06/13/24 07:07 oxycodone [OXYCODONE] AdvReac Mild NAUSEA & Verified 06/13/24 07:07 VOMITING From PERCOCET Allergy Severe VOMITING Uncoded 06/13/24 07:07 Percodan Allergy Unknown Vomiting Uncoded 06/13/24 07:07 Active Medications: Current Medications Albuterol Sulfate (Albuterol Sulfate 90 Mcg 8 Gm Inhaler) 2 puff INHALE QID PRN PRN Reason: Wheezing Glucose (Glucose Gel 15 Gm Gel..Gram.) 15 gm PO Q15M PRN; Protocol PRN Reason: per Hypoglycemia Standing Ord. Hydromorphone HCl (Hydromorphone Hcl 0.5 Mg/0.5 Ml Syringe) 0.25 mg IVPUSH Q4H PRN; Protocol PRN Reason: Pain, Severe (Pain Scale 7-10) Last Admin: 06/13/24 22:34 Dose: 0.25 mg Lactated Ringer's (Lr) 1,000 mls @ 125 mls/hr IVCONT .Q8H [facility] Last Admin: 06/14/24 06:44 Dose: 100 mls/hr Dextrose (D10) 250 mls @ 750 mls/hr IV Q15M PRN; Protocol PRN Reason: per Hypoglycemia Standing Ord. Ceftriaxone Sodium 1 gm/ (Sodium Chloride) 50 mls @ 100 mls/hr IV Q24H [facility] Last Infusion: 06/13/24 13:21 Dose: Infused Metronidazole (Flagyl) 500 mg in 100 mls @ 100 mls/hr IV Q8H [facility] Last Infusion: 06/14/24 06:07 Dose: Infused Levothyroxine Sodium (Levothyroxine Sodium 112 Mcg Tablet) 112 mcg PO DAILY@0600 [facility] Last Admin: 06/14/24 06:06 Dose: 112 mcg Melatonin (Melatonin 3 Mg Tablet) 6 mg PO BEDTIME PRN PRN Reason: Insomnia Pantoprazole Sodium (Pantoprazole Sodium 40 Mg/10 Ml Vial) 40 mg IVPUSH DAILY@0630 [facility] Last Admin: 06/14/24 06:46 Dose: 40 mg Prochlorperazine Edisylate (Prochlorperazine Edisylate 10 Mg/2 Ml Vial) 5 mg IVPUSH Q6H PRN PRN Reason: Nausea and Vomiting Sodium Chloride (0.9 % Sodium Chloride Flush 3 Ml Syringe) 3 ml IVFLUSH QSHIFT [facility] Last Admin: 06/14/24 01:28 Dose: Not Given Home Medications ?Medication ?Instructions ?Recorded ?Confirmed ?Last Taken ?Type albuterol sulfate 90 mcg/actuation 2 puff inhalation QID PRN Wheezing 05/13/23 06/13/24 2 Days Ago History aerosol inhaler ~05/11/23 aspirin 81 mg tablet,delayed 81 mg PO DAILY 05/13/23 06/13/24 06/12/24 History release atorvastatin 10 mg tablet 10 mg PO BEDTIME 05/13/23 06/13/24 06/12/24 History empagliflozin 25 mg tablet 25 mg PO DAILY 05/13/23 06/13/24 06/12/24 History (Jardiance) estradiol 1 mg tablet 1 mg PO DAILY 05/13/23 06/13/24 06/12/24 History levothyroxine 112 mcg tablet 112 mcg PO DAILY@0605/13/23 06/13/24 06/12/24 History multivitamin 1 tab PO DAILY 05/13/23 06/13/24 06/12/24 History omeprazole 40 mg capsule,delayed 40 mg PO DAILY@0630 05/13/23 06/13/24 06/12/24 History release insulin glargine U-300 conc 300 15 unit subcut DAILY 06/13/24 06/13/24 06/12/24 History unit/mL (1.5 mL) subcutaneous pen (Edison Diggs U-300 Insulin) losartan 50 mg tablet 50 mg PO DAILY 10/03/0106/13/24 06/12/24 History tirzepatide 5 mg/0.5 mL 5 mg subcut MO@0900 06/13/24 06/13/24 06/07/24 History subcutaneous pen injector (Cristino) Physical Exam Vital Signs: Vital Signs: Last Vital Signs Temp 97.9 F 06/14/24 05:53 Pulse 103 H 06/14/24 05:53 Resp 15 06/14/24 05:53 BP 99/60 06/14/24 05:53 Pulse Ox 98 06/14/24 05:53 O2 Del Method Room Air 06/14/24 05:53 BMI result Body Mass Index 25.4 Const: General: cooperative, comfortable, alert, awake and anxious Nutritional Appearance: average body habitus Orientation/consciousness: patient oriented x3 Limitations: no limitations HEENT: Head: Yes normocephalic and Yes atraumatic Neck: Neck: Yes trachea midline, Yes supple and Yes no JVD Resp: Effort & Inspection: normal respiratory effort Auscultation: clear to auscultation bilaterally Cardio: Jugular venous distension: no JVD Rate: tachycardic Rhythm: regular rhythm Heart sounds: S1 normal heart sound present, S2 normal heart sound present, no click, no gallops, no murmurs and no rubs GI: Auscultation: normal bowel sounds Skin: General skin exam: no rashes or lesions noted Neuro: General: patient oriented x3 and no focal motor deficits Extrem: General: Yes no clubbing, cyanosis or edema Objective Labs and Meds 06/14/24 05:42 06/14/24 05:42 Lab results: Laboratory Results - last 24 hr 06/13/24 06/13/24 06/13/24 07:21 11:54 12:12 WBC RBC Hgb Hct MCV MCH MCHC RDW Plt Count MPV Immature Gran % (Auto) Neut % (Auto) Lymph % (Auto) Winn % (Auto) Eos % (Auto) Baso % (Auto) Lymph # (Auto) Winn # (Auto) Eos # (Auto) Baso # (Auto) Abs Immat Gran (auto) Absolute Neuts (auto) Absolute Nucleated RBC Nucleated RBC % (auto) Sodium Potassium Chloride Carbon Dioxide Anion Gap BUN Creatinine Estim Creat Clear Calc Estimated GFR POC Glucose Random Glucose Estimat Average Glucose 131 Hemoglobin A1c % 6.2 H Lactic Acid Calcium Total Bilirubin AST ALT Alkaline Phosphatase Troponin I High Sens 347.4 H* D Total Protein Albumin Triglycerides 83 Cholesterol 162 LDL Cholesterol, Calc 90 HDL Cholesterol 56 TSH 1.57 Urine Color Yellow Urine Appearance Clear Urine pH 5.0 Ur Specific [place] >= 1.030 H Urine Protein Trace Urine Glucose (UA) >=1000 H Urine Ketones >=160 Urine Blood Negative Urine Nitrite Negative Ur Leukocyte Esterase Negative Urine RBC 0-2 Urine WBC 0-5 Ur Squamous Epith Cells 3-5 Urine Bacteria 1+ Hyaline Casts 0-2 06/13/24 06/13/24 06/13/24 13:52 15:31 21:01 WBC 13.3 H RBC 4.04 L Hgb 13.8 Hct 40.0 MCV 99.0 H MCH 34.2 H MCHC 34.5 RDW 12.1 Plt Count 214 MPV 11.0 Immature Gran % (Auto) 0.5 H Neut % (Auto) 81.1 H Lymph % (Auto) 11.8 L Winn % (Auto) 6.4 Eos % (Auto) 0.0 Baso % (Auto) 0.2 Lymph # (Auto) 1.6 Winn # (Auto) 0.9 Eos # (Auto) 0.0 Baso # (Auto) 0.0 Abs Immat Gran (auto) 0.07 H Absolute Neuts (auto) 10.8 H Absolute Nucleated RBC 0.000 Nucleated RBC % (auto) 0.0 Sodium 145 Potassium 3.9 Chloride 112 H Carbon Dioxide 17 L Anion Gap 20 BUN 21 H Creatinine 0.76 Estim Creat Clear Calc 70.4 Estimated GFR > 60 POC Glucose 136 H 119 H Random Glucose 138 H Estimat Average Glucose Hemoglobin A1c % Lactic Acid Calcium 8.7 D Total Bilirubin AST ALT Alkaline Phosphatase Troponin I High Sens 378.6 H* Total Protein Albumin Triglycerides Cholesterol LDL Cholesterol, Calc HDL Cholesterol TSH Urine Color Urine Appearance Urine pH Ur Specific [place] Urine Protein Urine Glucose (UA) Urine Ketones Urine Blood Urine Nitrite Ur Leukocyte Esterase Urine RBC Urine WBC Ur Squamous Epith Cells Urine Bacteria Hyaline Casts 06/14/24 06/14/24 06/14/24 00:44 04:30 05:42 WBC RBC Hgb 12.7 Hct 37.8 MCV MCH MCHC RDW Plt Count MPV Immature Gran % (Auto) Neut % (Auto) Lymph % (Auto) Winn % (Auto) Eos % (Auto) Baso % (Auto) Lymph # (Auto) Winn # (Auto) Eos # (Auto) Baso # (Auto) Abs Immat Gran (auto) Absolute Neuts (auto) Absolute Nucleated RBC Nucleated RBC % (auto) Sodium 142 Potassium 4.1 Chloride 116 H Carbon Dioxide 15 L Anion Gap 15 BUN 18 H Creatinine 0.71 Estim Creat Clear Calc 75.3 Estimated GFR > 60 POC Glucose 96 Random Glucose 102 Estimat Average Glucose Hemoglobin A1c % Lactic Acid 0.9 Calcium 8.4 Total Bilirubin 0.7 AST 21 ALT 17 Alkaline Phosphatase 35 L Troponin I High Sens Total Protein 5.7 L Albumin 3.5 Triglycerides Cholesterol LDL Cholesterol, Calc HDL Cholesterol TSH Urine Color Urine Appearance Urine pH Ur Specific [place] Urine Protein Urine Glucose (UA) Urine Ketones Urine Blood Urine Nitrite Ur Leukocyte Esterase Urine RBC Urine WBC Ur Squamous Epith Cells Urine Bacteria Hyaline Casts Assessment and Plan (1) Elevated troponin: Status: Acute Elevated troponin in this middle-aged woman along with EKG changes and chest pain is suggestive of myocardial injury either related to stress-induced cardiomyopathy AKA takotsubo cardiomyopathy or demand ischemia related to underlying medical issues with colitis. However continue with supportive care and fluid resuscitation. If aspirin is okay with GI would prescribe aspirin and high-intensity statin therapy, atorvastatin 80 mg daily. Will obtain an echocardiogram for evaluation for stress-induced cardiomyopathy. Blood pressure is currently soft and would avoid losartan therapy and once stable would start on low-dose metoprolol therapy. Based on the echocardiographic findings will further decide with the patient can be optimized for colonoscopy as inpatient versus pursued as outpatient and provide supportive care for now. Given her underlying longstanding diabetes insulin requiring will require ischemic workup as an outpatient. Will follow with you Procedures Date of Service Date of Service: 06/14/24
--- NOTE | 2024-06-14 10:02 | MHC.CM.PN ---
Attempted to meet with patient in regards to discharge planning. Echo currently being performed. No family present. Will attempt to meet again. Continue to monitor for d/c needs.
--- NOTE | 2024-06-14 10:12 | PC.NURSE ---
pt awake. ambulatory to [facility]. [facility] U/S
--- NOTE | 2024-06-14 10:43 | PC.NURSE ---
axox3. c/o chest pain worse iwth deep breath. ST on monitor. aware of plan of care. last BM iwth ras blood was 6am yesterday. no palor lower conjunectiva
[2024-06-14] MEDS: HYDROmorphone HCl 0.5 MG/0.5 ML SYRINGE 0.25 MG IVPUSH ×2 (10:59→14:50)
--- NOTE | 2024-06-14 11:03 | HO.PM.IMPN ---
Subjective Subjective Date of Service: 06/14/24 Review of Systems Follow up Elevated troponin and colitis feeling better no further bleeding Physical Exam Vital Signs: Vital Signs: Last Vital Signs Temp 98.8 F 06/14/24 10:51 Pulse 121 H 06/14/24 10:51 Resp 16 06/14/24 10:51 BP 117/75 06/14/24 10:51 Pulse Ox 99 06/14/24 10:51 O2 Del Method Room Air 06/14/24 10:51 BMI result Body Mass Index 25.4 Appearing in no acute distress lung sounds are clear to auscultation heart regular rate rhythm, clear S1, S2 positive bowel sounds, abdomen is soft, nontender neuro patient is alert x3, no focal deficits Objective Data Active Medications Albuterol Sulfate (Albuterol Sulfate 90 Mcg 8 Gm Inhaler) 2 puff INHALE QID PRN PRN Reason: Wheezing Glucose (Glucose Gel 15 Gm Gel..Gram.) 15 gm PO Q15M PRN; Protocol PRN Reason: per Hypoglycemia Standing Ord. Hydromorphone HCl (Hydromorphone Hcl 0.5 Mg/0.5 Ml Syringe) 0.25 mg IVPUSH Q4H PRN; Protocol PRN Reason: Pain, Severe (Pain Scale 7-10) Last Admin: 06/14/24 10:59 Dose: 0.25 mg Documented By: DANNY Lactated Ringer's (Lr) 1,000 mls @ 125 mls/hr IVCONT .Q8H [facility] Last Admin: 06/14/24 06:44 Dose: 100 mls/hr Documented By: NISA Dextrose (D10) 250 mls @ 750 mls/hr IV Q15M PRN; Protocol PRN Reason: per Hypoglycemia Standing Ord. Ceftriaxone Sodium 1 gm/ (Sodium Chloride) 50 mls @ 100 mls/hr IV Q24H [facility] Last Infusion: 06/13/24 13:21 Dose: Infused Documented By: NESTOR Metronidazole (Flagyl) 500 mg in 100 mls @ 100 mls/hr IV Q8H [facility] Last Infusion: 06/14/24 06:07 Dose: Infused Documented By: NISA Levothyroxine Sodium (Levothyroxine Sodium 112 Mcg Tablet) 112 mcg PO DAILY@0600 [facility] Last Admin: 06/14/24 06:06 Dose: 112 mcg Documented By: NISA Melatonin (Melatonin 3 Mg Tablet) 6 mg PO BEDTIME PRN PRN Reason: Insomnia Pantoprazole Sodium (Pantoprazole Sodium 40 Mg/10 Ml Vial) 40 mg IVPUSH DAILY@0630 [facility] Last Admin: 06/14/24 06:46 Dose: 40 mg Documented By: NISA Prochlorperazine Edisylate (Prochlorperazine Edisylate 10 Mg/2 Ml Vial) 5 mg IVPUSH Q6H PRN PRN Reason: Nausea and Vomiting Sodium Chloride (0.9 % Sodium Chloride Flush 3 Ml Syringe) 3 ml IVFLUSH QSHIFT [facility] Last Admin: 06/14/24 10:42 Dose: Not Given Documented By: DANNY Non-Admin Reason: Med Not Available Labs 06/14/24 05:42 06/14/24 05:42 Labs: Laboratory Results - last 24 hr 06/13/24 06/13/24 06/13/24 07:21 11:54 12:12 MCV MCH MCHC RDW Plt Count MPV Immature Gran % (Auto) Neut % (Auto) Lymph % (Auto) [place] % (Auto) Eos % (Auto) Baso % (Auto) Lymph # (Auto) Aiken # (Auto) Eos # (Auto) Baso # (Auto) Abs Immat Gran (auto) Absolute Neuts (auto) Absolute Nucleated RBC Nucleated RBC % (auto) Anion Gap Estim Creat Clear Calc Estimated GFR POC Glucose Random Glucose Estimat Average Glucose 131 Hemoglobin A1c % 6.2 H Lactic Acid Calcium Total Bilirubin AST ALT Alkaline Phosphatase Troponin I High Sens 347.4 H* D Total Protein Albumin Triglycerides 83 Cholesterol 162 LDL Cholesterol, Calc 90 HDL Cholesterol 56 TSH 1.57 Urine Color Yellow Urine Appearance Clear Urine pH 5.0 Ur Specific [place] >= 1.030 H Urine Protein Trace Urine Glucose (UA) >=1000 H Urine Ketones >=160 Urine Blood Negative Urine Nitrite Negative Ur Leukocyte Esterase Negative Urine RBC 0-2 Urine WBC 0-5 Ur Squamous Epith Cells 3-5 Urine Bacteria 1+ Hyaline Casts 0-2 06/13/24 06/13/24 06/13/24 13:52 15:31 21:01 MCV 99.0 H MCH 34.2 H MCHC 34.5 RDW 12.1 Plt Count 214 MPV 11.0 Immature Gran % (Auto) 0.5 H Neut % (Auto) 81.1 H Lymph % (Auto) 11.8 L [place] % (Auto) 6.4 Eos % (Auto) 0.0 Baso % (Auto) 0.2 Lymph # (Auto) 1.6 Aiken # (Auto) 0.9 Eos # (Auto) 0.0 Baso # (Auto) 0.0 Abs Immat Gran (auto) 0.07 H Absolute Neuts (auto) 10.8 H Absolute Nucleated RBC 0.000 Nucleated RBC % (auto) 0.0 Anion Gap 20 Estim Creat Clear Calc 70.4 Estimated GFR > 60 POC Glucose 136 H 119 H Random Glucose 138 H Estimat Average Glucose Hemoglobin A1c % Lactic Acid Calcium 8.7 D Total Bilirubin AST ALT Alkaline Phosphatase Troponin I High Sens 378.6 H* Total Protein Albumin Triglycerides Cholesterol LDL Cholesterol, Calc HDL Cholesterol TSH Urine Color Urine Appearance Urine pH Ur Specific [place] Urine Protein Urine Glucose (UA) Urine Ketones Urine Blood Urine Nitrite Ur Leukocyte Esterase Urine RBC Urine WBC Ur Squamous Epith Cells Urine Bacteria Hyaline Casts 06/14/24 06/14/24 06/14/24 00:44 04:30 05:42 MCV MCH MCHC RDW Plt Count MPV Immature Gran % (Auto) Neut % (Auto) Lymph % (Auto) Aiken % (Auto) Eos % (Auto) Baso % (Auto) Lymph # (Auto) Aiken # (Auto) Eos # (Auto) Baso # (Auto) Abs Immat Gran (auto) Absolute Neuts (auto) Absolute Nucleated RBC Nucleated RBC % (auto) Anion Gap 15 Estim Creat Clear Calc 75.3 Estimated GFR > 60 POC Glucose 96 Random Glucose 102 Estimat Average Glucose Hemoglobin A1c % Lactic Acid 0.9 Calcium 8.4 Total Bilirubin 0.7 AST 21 ALT 17 Alkaline Phosphatase 35 L Troponin I High Sens Total Protein 5.7 L Albumin 3.5 Triglycerides Cholesterol LDL Cholesterol, Calc HDL Cholesterol TSH Urine Color Urine Appearance Urine pH Ur Specific [place] Urine Protein Urine Glucose (UA) Urine Ketones Urine Blood Urine Nitrite Ur Leukocyte Esterase Urine RBC Urine WBC Ur Squamous Epith Cells Urine Bacteria Hyaline Casts Microbiology Microbiology Results: Microbiology 06/13/24 08:44 Blood Culture - Preliminary Blood - Venous No growth after 24 hours. 06/13/24 08:44 Blood Culture - Preliminary Blood - Venous No growth after 24 hours. Assessment and Plan (1) Elevated troponin: Status: Acute (2) BRBPR (bright red blood per rectum): Status: Acute Plan This is a 58-year-old female with history of type 2 diabetes, hypothyroidism who presents to the emergency department with complaints of nausea, vomiting, diarrhea, rectal bleeding and chest pain he will be admitted for further management of rectal bleeding and chest pain Colitis, likely ischemic CT scan with no acute intra-abdominal pathology although colon not well characterized on CT imaging History of colitis which she reports feels similar Nausea/vomiting seems to have improved at this time IV fluid, antiemetics, IV analgesics Empiric antibiotics, ceftriaxone and Flagyl stool studies pending GI consult> Plan for colonoscopy after cleared by cardiology Rectal bleeding no hemorrhoids per ED exam possible colitis as above H/H stable at this time Follow CBC Type and cross obtained If active bleeding would recommend CT angiogram and IR embolization if positive Chest pain New EKG changes Initial troponin 347.4, 378.6 Blood pressure soft, avoid beta-cameron for now Unable to give aspirin due to above rectal bleeding Cardiology consult> likely stress induced CMP, obtain echo, give as aif ok with GI and start high dose statin Sinus tachycardia Likely reactive from vomiting/volume depletion normal TSH Type 2 diabetes Toumeghann monjouro non formulary-on hold SSI,POCs clears Hypothyroidism Resume Synthroid when med rec Complete DVT prophylaxis-mechanical due to rectal bleeding Code status-full code Quality Stroke Does the patient have a stroke diagnosis?: No VTE Prior VTE?: No VTE Risk Level:: Medical - moderate - high VTE Device Contraindication: N/A - Device Ordered VTE Drug Contraindication: Treatment Not Indicated
[2024-06-14 11:53] LABS: Glucose, Whole Blood 84 mg/dL (60-115)
[2024-06-14] MEDS: cefTRIAXone sodium 1 GM in 0.9 % Sodium Chloride 50 ML IV (14:50)
[2024-06-14] MEDS: Prochlorperazine Edisylate 10 MG/2 ML VIAL 5 MG IVPUSH ×2 (15:45)
[2024-06-14 16:14] LABS: Glucose, Whole Blood 133 mg/dL (60-115)
[2024-06-14 21:40] LABS: Glucose, Whole Blood 121 mg/dL (60-115)
[2024-06-15] VITALS (7 sets, daily range): BP systolic 116–133; BP diastolic 69–82; PULSE 108–133; RESP 18–20; TEMP 36.1–37.3; O2SAT 96–98
[2024-06-15 03:48] LABS: Glucose, Whole Blood 126 mg/dL (60-115)
[2024-06-15] MEDS: Lactated Ringers 1,000 ML 100 ML IVCONT (03:52)
[2024-06-15] MEDS: metroNIDAZOLE/NS 500 MG/100 ML PIGGYBACK 100 MG IV ×3 (03:53→20:21)
[2024-06-15] MEDS: Levothyroxine Sodium 112 MCG TABLET PO (05:52)
[2024-06-15] MEDS: Pantoprazole Sodium 40 MG/10 ML VIAL IVPUSH (05:52)
[2024-06-15 06:37] LABS: Hematocrit 39.4 % (37.0-47.0); Hemoglobin 13.6 g/dl (12.0-16.0); Mean Corpuscular HGB Conc 34.5 g/dl (31.0-35.0); Mean Corpuscular Hemoglobin 34.5 pg (27.0-33.0); Mean Platelet Volume 11.3 fL (9.4-12.3); Platelet Count 207 X10*3/uL (160-400); Red Blood Count 3.94 X10*6/uL (4.20-5.50); Red Cell Distribution Width 11.9 % (11.0-16.0); White Blood Count 12.7 X10*3/uL (4.8-10.8)
[2024-06-15] MEDS: Prochlorperazine Edisylate 10 MG/2 ML VIAL 5 MG IVPUSH (06:47)
[2024-06-15 06:52] LABS: Anion Gap 18 (12-20); Blood Urea Nitrogen 12 mg/dL (9-16); Calcium 8.7 mg/dL (8.4-10.2); Carbon Dioxide 13 mmol/L (22-29); Chloride 112 mmol/L (96-108); Creatinine Clr Calc Pharmacy 70.4; Estimated Glomerular Filt Rate > 60; Glucose Random 125 mg/dL (60-115); Potassium 4.1 mmol/L (3.3-5.1); Sodium 139 mmol/L (135-145)
--- NOTE | 2024-06-15 08:54 | P.PNCA_ITS ---
Subjective Subjective Date of Service: 06/15/24 Principal diagnosis: New onset cardiomyopathy Interval history: Patient continues to have intermittent episodes of chest pain but says that this feels like hunger pain. Patient was not very specific about it. She says she gets Dilaudid for his pain gets better. She continues to have GI issues and has not had any bowel movement or passing gas. She said getting IV fluids. Blood pressures improved although she remains having sinus tachycardia. Echocardiogram shows moderate to severe LV systolic dysfunction with multiple regional wall motion abnormalities in multiple territory suggestive of stress- induced cardiomyopathy. Patient denies any shortness of breath. Remains very anxious. No palpitations. Was started on metoprolol yesterday Review of Systems Constitutional: Reports no additional constitutional complaints Cardiovascular: Reports chest pain at rest, Reports rapid heart rate, Denies lightheadedness, Denies palpitations and Denies dyspnea Respiratory: Denies dyspnea Gastrointestinal: Reports abdominal pain Skin/Breast: Reports system reviewed and no additional complaints, except as docu Reports system reviewed and no additional complaints, except as documented Endocrine: Reports no additional endocrine complaints and Denies palpitations Physical Exam Vital Signs: Last Vital Signs Temp 98.0 F 06/15/24 07:35 Pulse 125 H 06/15/24 07:35 Resp 20 06/15/24 07:35 BP 133/82 06/15/24 07:35 Pulse Ox 97 06/15/24 07:35 O2 Del Method Room Air 06/15/24 07:35 BMI result Body Mass Index 25.4 Const General: cooperative, comfortable, alert, awake and anxious Nutritional Appearance: average body habitus Orientation/consciousness: patient oriented x3 Limitations: no limitations HEENT Head: Yes normocephalic and Yes atraumatic Neck Neck: Yes trachea midline, Yes supple and Yes no JVD Resp Effort & Inspection: normal respiratory effort Auscultation: clear to auscultation bilaterally Cardio Jugular venous distension: no JVD Rate: tachycardic Rhythm: regular rhythm Heart sounds: S1 normal heart sound present, S2 normal heart sound present, no click, no gallops, no murmurs and no rubs GI Auscultation: normal bowel sounds Skin General skin exam: no rashes or lesions noted Neuro General: patient oriented x3 and no focal motor deficits Extrem General: Yes no clubbing, cyanosis or edema Objective Labs and Meds 06/15/24 06:22 06/15/24 06:22 Lab results: Laboratory Results - last 24 hr 06/14/24 06/14/24 06/14/24 10:57 16:07 21:36 WBC RBC Hgb Hct MCV MCH MCHC RDW Plt Count MPV Absolute Nucleated RBC Nucleated RBC % (auto) Sodium Potassium Chloride Carbon Dioxide Anion Gap BUN Creatinine Estim Creat Clear Calc Estimated GFR POC Glucose 84 133 H 121 H Random Glucose Calcium 06/15/24 06/15/24 03:41 06:22 WBC 12.7 H RBC 3.94 L Hgb 13.6 Hct 39.4 MCV 100.0 H MCH 34.5 H MCHC 34.5 RDW 11.9 Plt Count 207 MPV 11.3 Absolute Nucleated RBC 0.000 Nucleated RBC % (auto) 0.0 Sodium 139 Potassium 4.1 Chloride 112 H Carbon Dioxide 13 L Anion Gap 18 BUN 12 Creatinine 0.76 Estim Creat Clear Calc 70.4 Estimated GFR > 60 POC Glucose 126 H Random Glucose 125 H Calcium 8.7 Progress Note: A&P Assessment and plan (1) Cardiomyopathy: Status: Acute Assessment and Plan: Cardiomyopathy with echo findings and overall clinical scenario most consistent with stress-induced cardiomyopathy. Although ischemia can not be entirely ruled out and stress-induced cardiomyopathy is diagnose of exclusion. She continues to have intermittent chest pain which appear to be atypical and do not sound ischemic. However her high heart rate is concerning to me at this point time. Question related to underlying colitis. She has been getting IV fluids. Also could be contributed by anxiety. She has no other signs of heart failure or hemodynamic compromise at this point time. I would like her bowel activity to improve to prior considering invasive approach. However if there is further deterioration overall cardiovascular issues many transfer for cardiac catheterization. This was discussed with the patient. Continue supportive care. Hope for GI follow-up as well. Agree with metoprolol therapy to gradually uptitrate as tolerated. Will continue to follow with you Time Spent With Patient Time: Total time managing care of this patient today ____ minutes. Progress Note: Quality Stroke Does the patient have a stroke diagnosis?: No Procedures Date of Service Date of Service: 06/15/24
--- NOTE | 2024-06-15 09:18 | MHC.CM.PN ---
CM met with Patient at bedside. Patient is moving to [place], but is presently staying with her Cousin/HCP/Faby in a third floor apartment. Patient required no services nor DME [employer] and home/self care is the goal. CM has initiated and will follow for dc planning. PCP is Dr. Delma Kimbrough and Cousin will transport to home.
[2024-06-15] MEDS: Metoprolol Tartrate 25 MG TABLET PO ×2 (09:37→20:20)
[2024-06-15] MEDS: 0.9 % Sodium Chloride Flush 3 ML SYRINGE IVFLUSH ×3 (09:37→20:22)
--- NOTE | 2024-06-15 09:50 | HO.PM.IMPN ---
Subjective Subjective Date of Service: 06/15/24 Review of Systems Follow up Elevated troponin and colitis feeling better no further bleeding Physical Exam Vital Signs: Vital Signs: Last Vital Signs Temp 98.0 F 06/15/24 07:35 Pulse 125 H 06/15/24 07:35 Resp 20 06/15/24 07:35 BP 133/82 06/15/24 07:35 Pulse Ox 97 06/15/24 07:35 O2 Del Method Room Air 06/15/24 07:35 BMI result Body Mass Index 25.4 Appearing in no acute distress lung sounds are clear to auscultation heart regular rate rhythm, clear S1, S2 positive bowel sounds, abdomen is soft, nontender neuro patient is alert x3, no focal deficits Objective Data Active Medications Albuterol Sulfate (Albuterol Sulfate 90 Mcg 8 Gm Inhaler) 2 puff INHALE QID PRN PRN Reason: Wheezing Atorvastatin Calcium (Atorvastatin Calcium 80 Mg Tablet) 80 mg PO BEDTIME ABHAY Glucose (Glucose Gel 15 Gm Gel..Gram.) 15 gm PO Q15M PRN; Protocol PRN Reason: per Hypoglycemia Standing Ord. Hydromorphone HCl (Hydromorphone Hcl 0.5 Mg/0.5 Ml Syringe) 0.25 mg IVPUSH Q4H PRN; Protocol PRN Reason: Pain, Severe (Pain Scale 7-10) Last Admin: 06/14/24 14:50 Dose: 0.25 mg Documented By: MAYTE Lactated Ringer's (Lr) 1,000 mls @ 125 mls/hr IVCONT .Q8H [facility] Last Admin: 06/15/24 03:52 Dose: 100 mls/hr Documented By: KRISTAL Dextrose (D10) 250 mls @ 750 mls/hr IV Q15M PRN; Protocol PRN Reason: per Hypoglycemia Standing Ord. Ceftriaxone Sodium 1 gm/ (Sodium Chloride) 50 mls @ 100 mls/hr IV Q24H [facility] Last Infusion: 06/14/24 15:30 Dose: Infused Documented By: MAYTE Metronidazole (Flagyl) 500 mg in 100 mls @ 100 mls/hr IV Q8H [facility] Last Infusion: 06/15/24 04:57 Dose: Infused Documented By: KRISTAL Levothyroxine Sodium (Levothyroxine Sodium 112 Mcg Tablet) 112 mcg PO DAILY@0600 [facility] Last Admin: 06/15/24 05:52 Dose: 112 mcg Documented By: KRISTAL Melatonin (Melatonin 3 Mg Tablet) 6 mg PO BEDTIME PRN PRN Reason: Insomnia Metoprolol Tartrate (Metoprolol Tartrate 25 Mg Tablet) 25 mg PO BID [facility]; Protocol Last Admin: 06/15/24 09:37 Dose: 25 mg Documented By: SELENE Pantoprazole Sodium (Pantoprazole Sodium 40 Mg/10 Ml Vial) 40 mg IVPUSH DAILY@0630 [facility] Last Admin: 06/15/24 05:52 Dose: 40 mg Documented By: KRISTAL Prochlorperazine Edisylate (Prochlorperazine Edisylate 10 Mg/2 Ml Vial) 5 mg IVPUSH Q6H PRN PRN Reason: Nausea and Vomiting Last Admin: 06/15/24 06:47 Dose: 5 mg Documented By: KRISTAL Sodium Chloride (0.9 % Sodium Chloride Flush 3 Ml Syringe) 3 ml IVFLUSH QSTNFT [facility] Last Admin: 06/15/24 09:37 Dose: 3 ml Documented By: SELENE Labs 06/15/24 06:22 06/15/24 06:22 Labs: Laboratory Results - last 24 hr 06/14/24 06/14/24 06/14/24 10:57 16:07 21:36 MCV MCH MCHC RDW Plt Count MPV Absolute Nucleated RBC Nucleated RBC % (auto) Anion Gap Estim Creat Clear Calc Estimated GFR POC Glucose 84 133 H 121 H Random Glucose Calcium 06/15/24 06/15/24 03:41 06:22 MCV 100.0 H MCH 34.5 H MCHC 34.5 RDW 11.9 Plt Count 207 MPV 11.3 Absolute Nucleated RBC 0.000 Nucleated RBC % (auto) 0.0 Anion Gap 18 Estim Creat Clear Calc 70.4 Estimated GFR > 60 POC Glucose 126 H Random Glucose 125 H Calcium 8.7 Microbiology Microbiology Results: Microbiology 06/13/24 08:44 Blood Culture - Preliminary Blood - Venous No growth after 24 hours. 06/13/24 08:44 Blood Culture - Preliminary Blood - Venous No growth after 24 hours. Assessment and Plan (1) Elevated troponin: Status: Acute (2) BRBPR (bright red blood per rectum): Status: Acute Plan This is a 58-year-old female with history of type 2 diabetes, hypothyroidism who presents to the emergency department with complaints of nausea, vomiting, diarrhea, rectal bleeding and chest pain he will be admitted for further management of rectal bleeding and chest pain Colitis, likely ischemic CT scan with no acute intra-abdominal pathology although colon not well characterized on CT imaging History of colitis which she reports feels similar Nausea/vomiting resolved IV fluid, antiemetics, IV analgesics Empiric antibiotics, ceftriaxone and Flagyl GI consult> Plan for colonoscopy o/p after cardiac symptoms optimized advance diet Rectal bleeding. Resolved no hemorrhoids per ED exam possible colitis as above H/H stable at this time Follow CBC Type and cross obtained If active bleeding would recommend CT angiogram and IR embolization if positive Chest pain New EKG changes Initial troponin 347.4, 378.6 Unable to give aspirin due to above rectal bleeding for now Cardiology consult> echo showing takotsubo with EF of 30-35%, started beta-cameron 25 mg b.i.d. and high-dose statin Sinus tachycardia Likely reactive from vomiting/volume depletion normal TSH Type 2 diabetes olegario Hogan non formulary-on hold SSI,POCs advance diet Hypothyroidism Synthroid anxiety ativan as needed DVT prophylaxis-mechanical due to rectal bleeding Attending Dr. Croft Code status-full code Quality Stroke Does the patient have a stroke diagnosis?: No VTE Prior VTE?: No VTE Risk Level:: Medical - moderate - high VTE Device Contraindication: N/A - Device Ordered VTE Drug Contraindication: Treatment Not Indicated
--- NOTE | 2024-06-15 10:17 | P.PNGI_ITS ---
Subjective Subjective Date of Service: 06/15/24 Interval History: no more rectal bleeding, some mild nausea and regurgitation hungry no fevers or chills, getting ABX Critical Care Time (minutes): 0 Physical Exam 2 Vital Signs: Vital Signs: Last Vital Signs Temp 98.0 F 06/15/24 07:35 Pulse 125 H 06/15/24 07:35 Resp 20 06/15/24 07:35 BP 133/82 06/15/24 07:35 Pulse Ox 97 06/15/24 07:35 O2 Del Method Room Air 06/15/24 07:35 BMI result Body Mass Index 25.4 EXAM: GENERAL: The patient is well developed and nontoxic. VITAL SIGNS:see workflow HEENT: Nonicteric sclerae, PERRLA, EOMI. Oropharynx clear. Moist mucous membranes. Conjunctivae appear well perfused. No thyroid mass. CHEST: Chest wall is nontender. HEART: Regular rate and rhythm without murmurs. LUNGS: Clear to auscultation bilaterally. ABDOMEN: Soft, positive bowel sounds, tender left side of abdomen , no organomegaly.no flank tenderness SKIN: No rash, no excessive bruising, petechiae, or purpura. NEUROLOGIC: Cranial nerves II-XII intact without motor/sensory deficit. Psych: normal affect Objective Data Labs 06/15/24 06:22 06/15/24 06:22 Labs: Laboratory Results - last 24 hr 06/14/24 06/14/24 06/14/24 10:57 16:07 21:36 WBC RBC Hgb Hct MCV MCH MCHC RDW Plt Count MPV Absolute Nucleated RBC Nucleated RBC % (auto) Sodium Potassium Chloride Carbon Dioxide Anion Gap BUN Creatinine Estim Creat Clear Calc Estimated GFR POC Glucose 84 133 H 121 H Random Glucose Calcium 06/15/24 06/15/24 03:41 06:22 WBC 12.7 H RBC 3.94 L Hgb 13.6 Hct 39.4 MCV 100.0 H MCH 34.5 H MCHC 34.5 RDW 11.9 Plt Count 207 MPV 11.3 Absolute Nucleated RBC 0.000 Nucleated RBC % (auto) 0.0 Sodium 139 Potassium 4.1 Chloride 112 H Carbon Dioxide 13 L Anion Gap 18 BUN 12 Creatinine 0.76 Estim Creat Clear Calc 70.4 Estimated GFR > 60 POC Glucose 126 H Random Glucose 125 H Calcium 8.7 Microbiology Microbiology Results: Microbiology 06/13/24 08:44 Blood - Venous Blood Culture - Preliminary No growth after 24 hours. 06/13/24 08:44 Blood - Venous Blood Culture - Preliminary No growth after 24 hours. Procedures Date of Service Date of Service: 06/15/24 Progress Note: A&P Assessment and plan (1) Acute colitis: Status: Acute Plan 1/ Rectal bleeding and abdo pain, with preceding constipation and found to have tako tsubo. Most likely she developed ischemic colitis, seems to be improving but bicarb is low and she has some abdominal tenderness PLAN: 1/ Allow PO diet as tolerated 2/ monitor lactate--if increasing then CT Angio to r/o mesenteric ischemia. 3/ avoid hypotension 4/ cont ABx to avoid risk of infection and translocation 5/ colonoscopy in 3-4 weeks if agreeable Time Spent With Patient Time: Total time managing care of this patient today ____ minutes. Quality Stroke Does the patient have a stroke diagnosis?: No VTE Prior VTE?: No VTE Risk Level:: Medical - moderate - high VTE Device Contraindication: N/A - Device Ordered VTE Drug Contraindication: Treatment Not Indicated
[2024-06-15 10:59] LABS: Glucose, Whole Blood 150 mg/dL (60-115)
[2024-06-15 11:23] LABS: Glucose, Whole Blood 184 mg/dL (60-115)
[2024-06-15] MEDS: LORazepam 0.5 MG TABLET 0.25 MG PO (13:05)
[2024-06-15] MEDS: cefTRIAXone sodium 1 GM in 0.9 % Sodium Chloride 50 ML IV (13:09)
[2024-06-15 16:40] LABS: Glucose, Whole Blood 171 mg/dL (60-115)
[2024-06-15] MEDS: Insulin Lispro 100 UNIT/ML 3 ML VIAL SUBCUT ×2 (17:03→21:03)
[2024-06-15] MEDS: Omeprazole 20 MG CAPSULE.DR PO (17:04)
[2024-06-15] MEDS: Atorvastatin Calcium 80 MG TABLET PO (20:21)
[2024-06-15 20:46] LABS: Glucose, Whole Blood 185 mg/dL (60-115)
[2024-06-15] MEDS: HYDROmorphone HCl 0.5 MG/0.5 ML SYRINGE 0.25 MG IVPUSH (23:31)
[2024-06-16 03:23] VITALS: BP 108/63; PULSE 104; RESP 20; TEMP 36.4; O2SAT 94
[2024-06-16] MEDS: Omeprazole 40 MG CAPSULE.DR PO (05:04)
[2024-06-16] MEDS: Levothyroxine Sodium 112 MCG TABLET PO (05:05)
[2024-06-16] MEDS: metroNIDAZOLE/NS 500 MG/100 ML PIGGYBACK 100 MG IV ×3 (05:05→20:12)
[2024-06-16 05:39] LABS: Glucose, Whole Blood 123 mg/dL (60-115)
[2024-06-16 07:46] VITALS: BP 123/78; PULSE 110; RESP 18; TEMP 36; O2SAT 96
[2024-06-16] MEDS: Metoprolol Tartrate 25 MG TABLET PO (08:07)
[2024-06-16] MEDS: 0.9 % Sodium Chloride Flush 3 ML SYRINGE IVFLUSH ×2 (08:08→20:13)
--- NOTE | 2024-06-16 10:35 | MHC.CM.PN ---
Per ROUNDS discussion, Patient may be medically cleared for dc to home today, pending improved HR; CM will follow.
--- NOTE | 2024-06-16 10:53 | P.PNIM_ITS ---
Subjective Subjective Date of Service: 06/16/24 Review of Systems Follow up Elevated troponin and colitis feeling better no further bleeding Physical Exam 2 Vital Signs: Vital Signs: Last Vital Signs Temp 96.8 F 06/16/24 07:46 Pulse 110 H 06/16/24 07:46 Resp 18 06/16/24 07:46 BP 123/78 06/16/24 07:46 Pulse Ox 96 06/16/24 07:46 O2 Del Method Room Air 06/16/24 07:46 BMI result Body Mass Index 25.4 Appearing in no acute distress lung sounds are clear to auscultation heart regular rate rhythm, clear S1, S2 positive bowel sounds, abdomen is soft, nontender neuro patient is alert x3, no focal deficits Objective Data Active Medications Albuterol Sulfate (Albuterol Sulfate 90 Mcg 8 Gm Inhaler) 2 puff INHALE QID PRN PRN Reason: Wheezing Atorvastatin Calcium (Atorvastatin Calcium 80 Mg Tablet) 80 mg PO BEDTIME [facility] Last Admin: 06/15/24 20:21 Dose: 80 mg Documented By: CARLOS Glucose (Glucose Gel 15 Gm Gel..Gram.) 15 gm PO Q15M PRN; Protocol PRN Reason: per Hypoglycemia Standing Ord. Hydromorphone HCl (Hydromorphone Hcl 0.5 Mg/0.5 Ml Syringe) 0.25 mg IVPUSH Q4H PRN; Protocol PRN Reason: Pain, Severe (Pain Scale 7-10) Last Admin: 06/15/24 23:31 Dose: 0.25 mg Documented By: CARLOS Dextrose (D10) 250 mls @ 750 mls/hr IV Q15M PRN; Protocol PRN Reason: per Hypoglycemia Standing Ord. Ceftriaxone Sodium 1 gm/ (Sodium Chloride) 50 mls @ 100 mls/hr IV Q24H [facility] Last Infusion: 06/15/24 13:46 Dose: Infused Documented By: SELENE Metronidazole (Flagyl) 500 mg in 100 mls @ 100 mls/hr IV Q8H [facility] Last Infusion: 06/16/24 06:10 Dose: Infused Documented By: CARLOS Insulin Human Lispro (Insulin Lispro 100 Unit/Ml 3 Ml Vial) 0 unit SUBCUT QIDACHS [facility]; Protocol Last Admin: 06/16/24 08:09 Dose: Not Given Documented By: SELENE Non-Admin Reason: No Insulin Coverage Levothyroxine Sodium (Levothyroxine Sodium 112 Mcg Tablet) 112 mcg PO DAILY@0600 [facility] Last Admin: 06/16/24 05:05 Dose: 112 mcg Documented By: CARLOS Lorazepam (Lorazepam 0.5 Mg Tablet) 0.25 mg PO Q8H PRN PRN Reason: Anxiety Last Admin: 06/15/24 13:05 Dose: 0.25 mg Documented By: SELENE Melatonin (Melatonin 3 Mg Tablet) 6 mg PO BEDTIME PRN PRN Reason: Insomnia Metoprolol Tartrate (Metoprolol Tartrate 25 Mg Tablet) 25 mg PO BID [facility]; Protocol Last Admin: 06/16/24 08:07 Dose: 25 mg Documented By: SELENE Omeprazole (Omeprazole 20 Mg Capsule.Dr) 20 mg PO BID@0630,1630 [facility] Last Admin: 06/16/24 05:05 Dose: Not Given Documented By: CARLOS Non-Admin Reason: Physician Held Med Prochlorperazine Edisylate (Prochlorperazine Edisylate 10 Mg/2 Ml Vial) 5 mg IVPUSH Q6H PRN PRN Reason: Nausea and Vomiting Last Admin: 06/15/24 06:47 Dose: 5 mg Documented By: KRISTAL Sodium Chloride (0.9 % Sodium Chloride Flush 3 Ml Syringe) 3 ml IVFLUSH QSHIFT [facility] Last Admin: 06/16/24 08:08 Dose: 3 ml Documented By: SELENE Labs 06/15/24 06:22 06/15/24 06:22 Labs: Laboratory Results - last 24 hr 06/15/24 06/15/24 06/15/24 10:29 11:05 16:22 POC Glucose 150 H 184 H 171 H 06/15/24 06/16/24 20:37 05:35 POC Glucose 185 H 123 H Microbiology Microbiology Results: Microbiology 06/13/24 08:44 Blood Culture - Preliminary Blood - Venous No growth after 48 hours. 06/13/24 08:44 Blood Culture - Preliminary Blood - Venous No growth after 48 hours. Assessment and Plan (1) Elevated troponin: Status: Acute (2) BRBPR (bright red blood per rectum): Status: Acute Plan This is a 58-year-old female with history of type 2 diabetes, hypothyroidism who presents to the emergency department with complaints of nausea, vomiting, diarrhea, rectal bleeding and chest pain he will be admitted for further management of rectal bleeding and chest pain Takotsubo cardiomyopathy New EKG changes initially echo showing takotsubo with EF of 30-35% Initial troponin 347.4, 378.6 Unable to give aspirin due to above rectal bleeding for now Cardiology consult> titrate BB for better HR control, now at 37.5 BID, high-dose statin Colitis, likely ischemic CT scan with no acute intra-abdominal pathology although colon not well characterized on CT imaging History of colitis which she reports feels similar s/p IV fluid, antiemetics, IV analgesics Empiric antibiotics, ceftriaxone and Flagyl GI consult> Plan for colonoscopy o/p after cardiac symptoms optimized diabetic diet Rectal bleeding. Resolved no hemorrhoids per ED exam possible colitis as above H/H stable at this time Follow CBC Type 2 diabetes olegario Hogan non formulary-on hold SSI,POCs ADA diet Hypothyroidism Synthroid anxiety ativan as needed DVT prophylaxis-mechanical due to rectal bleeding Attending Dr. Croft Code status-full code Quality Stroke Does the patient have a stroke diagnosis?: No VTE Prior VTE?: No VTE Risk Level:: Medical - moderate - high VTE Device Contraindication: N/A - Device Ordered VTE Drug Contraindication: Treatment Not Indicated
[2024-06-16 10:58] LABS: Glucose, Whole Blood 201 mg/dL (60-115)
[2024-06-16 11:15] VITALS: BP 120/78; PULSE 104; RESP 18; TEMP 37.2; O2SAT 99
--- NOTE | 2024-06-16 11:30 | PM.PNCARD ---
Subjective Subjective Date of Service: 06/16/24 Principal diagnosis: New onset cardiomyopathy Interval history: Patient still having chest pain but chest pain she describes as with deep breathing she was getting chest pain. Chest pressure or non reproducible chest pain at this point time. Still having sinus tachycardia. Bowel movement seems to have improved. No shortness of breath. Denies any palpitations. Review of Systems Constitutional: Reports no additional constitutional complaints Eyes: Reports no additional eye complaints Cardiovascular: Denies rapid heart rate, Denies lightheadedness, Denies Loss of Consciousness, Denies palpitations, Denies dyspnea and Denies dyspnea on exertion Respiratory: Reports pain on inspiration, Denies dyspnea and Denies dyspnea on exertion Gastrointestinal: Reports no additional gastrointestinal complaints Genitourinary: Reports no additional female genitourinary complaints Musculoskeletal: Reports no additional musculoskeletal complaints Skin/Breast: Reports system reviewed and no additional complaints, except as docu Reports system reviewed and no additional complaints, except as documented Psychiatric: Reports no additional psychiatric complaints Endocrine: Denies palpitations Physical Exam Vital Signs: Last Vital Signs Temp 98.9 F 06/16/24 11:15 Pulse 104 H 06/16/24 11:15 Resp 18 06/16/24 11:15 BP 120/78 06/16/24 11:15 Pulse Ox 99 06/16/24 11:15 O2 Del Method Room Air 06/16/24 11:15 BMI result Body Mass Index 25.4 Const General: cooperative, comfortable, alert, awake and anxious Nutritional Appearance: average body habitus Orientation/consciousness: patient oriented x3 Limitations: no limitations HEENT Head: Yes normocephalic and Yes atraumatic Neck Neck: Yes trachea midline, Yes supple and Yes no JVD Resp Effort & Inspection: normal respiratory effort Auscultation: clear to auscultation bilaterally Cardio Jugular venous distension: no JVD Rate: tachycardic Rhythm: regular rhythm Heart sounds: S1 normal heart sound present, S2 normal heart sound present, no click, no gallops, no murmurs and no rubs GI Auscultation: normal bowel sounds Skin General skin exam: no rashes or lesions noted Neuro General: patient oriented x3 and no focal motor deficits Extrem General: Yes no clubbing, cyanosis or edema Objective Labs and Meds 06/15/24 06:22 06/15/24 06:22 Lab results: Laboratory Results - last 24 hr 06/15/24 06/15/24 06/16/24 16:22 20:37 05:35 POC Glucose 171 H 185 H 123 H 06/16/24 10:52 POC Glucose 201 H Progress Note: A&P Assessment and plan (1) Cardiomyopathy: Status: Acute Assessment and Plan: New onset cardiomyopathy process which is suggestive of stress-induced cardiomyopathy. Continues to have intermittent chest pain which is very atypical for myocardial ischemia mostly appears to be related to deep breathing. Which is unusual. Still having sinus tachycardia which is concerning probably related to sudden reduced stroke volume. Continue maximize metoprolol therapy. Continue supportive care. Continue aspirin and statins. It seems like a GI in salt his improving. Will continue to follow along with you. Time Spent With Patient Time: Total time managing care of this patient today ____ minutes. Progress Note: Quality Stroke Does the patient have a stroke diagnosis?: No Procedures Date of Service Date of Service: 06/16/24
[2024-06-16] MEDS: Insulin Lispro 100 UNIT/ML 3 ML VIAL SUBCUT ×2 (11:47→21:21)
[2024-06-16] MEDS: Metoprolol Tartrate 12.5 MG HALFTAB PO (11:47)
[2024-06-16] MEDS: cefTRIAXone sodium 1 GM in 0.9 % Sodium Chloride 50 ML IV (11:47)
[2024-06-16 15:16] VITALS: BP 120/73; PULSE 106; RESP 16; TEMP 37.2; O2SAT 98
[2024-06-16 16:59] LABS: Glucose, Whole Blood 136 mg/dL (60-115)
[2024-06-16] MEDS: Omeprazole 20 MG CAPSULE.DR PO (17:25)
[2024-06-16 19:13] VITALS: BP 130/80; PULSE 112; RESP 16; TEMP 36.3; O2SAT 98
[2024-06-16] MEDS: Atorvastatin Calcium 80 MG TABLET PO (20:11)
[2024-06-16] MEDS: Metoprolol Tartrate 12.5 MG HALFTAB 37.5 MG PO (20:11)
[2024-06-16 21:05] LABS: Glucose, Whole Blood 226 mg/dL (60-115)
[2024-06-16 23:23] VITALS: BP 121/78; PULSE 116; RESP 20; TEMP 36.2; O2SAT 96
[2024-06-16] MEDS: HYDROmorphone HCl 0.5 MG/0.5 ML SYRINGE 0.25 MG IVPUSH (23:58)
[2024-06-17 03:27] VITALS: BP 113/71; PULSE 108; RESP 20; TEMP 36.1; O2SAT 96
[2024-06-17] MEDS: Levothyroxine Sodium 112 MCG TABLET PO (05:51)
[2024-06-17] MEDS: Omeprazole 20 MG CAPSULE.DR PO ×2 (05:51→16:46)
[2024-06-17] MEDS: metroNIDAZOLE/NS 500 MG/100 ML PIGGYBACK 100 MG IV ×2 (05:52→13:15)
[2024-06-17 07:00] LABS: Anion Gap 12 (12-20); Blood Urea Nitrogen 19 mg/dL (9-16); Calcium 8.4 mg/dL (8.4-10.2); Carbon Dioxide 19 mmol/L (22-29); Chloride 113 mmol/L (96-108); Creatinine Clr Calc Pharmacy 70.4; Estimated Glomerular Filt Rate > 60; Glucose Random 183 mg/dL (60-115); Potassium 3.3 mmol/L (3.3-5.1); Sodium 141 mmol/L (135-145)
[2024-06-17 08:14] LABS: Glucose, Whole Blood 161 mg/dL (60-115)
[2024-06-17 08:27] VITALS: BP 122/75; PULSE 103; RESP 18; TEMP 36.8; O2SAT 97
[2024-06-17] MEDS: Metoprolol Tartrate 12.5 MG HALFTAB 37.5 MG PO (08:52)
[2024-06-17] MEDS: 0.9 % Sodium Chloride Flush 3 ML SYRINGE IVFLUSH (08:52)
[2024-06-17] MEDS: Insulin Lispro 100 UNIT/ML 3 ML VIAL SUBCUT ×3 (08:52→16:45)
--- NOTE | 2024-06-17 10:00 | CA_ITS ---
Transthoracic Echocardiogram Patient (Last, First, Middle): Milagros Fofana M Gender: Female Date of : 1965 Age: 58 Procedure Date: 06/17/2024 Procedure Type: Transthoracic Echocardiogram [place] [facility] [place]: 157.48 cm Weight: 63.05 kg BSA: 1.64 m2 Heart Rate: 99 bpm BP: 122 / 75 mmHg Copyman: LISSET Referring MD: Tanner Huddleston MD Layout Artist: Tanner Huddleston MD Symptoms: Follow up LVEF evaluation Study Quality: Adequate w/Contrast ECG Rhythm: Sinus Conclusions: - Moderate to severe LV systolic dysfunction with persistent regional wall motion abnormality multiple territories, suggestive of stress-induced cardiomyopathy Findings Procedure Information Contrast agent, definity, is being given per protocol without apparent complications. Left Ventricle Normal left ventricular cavity size. There is normal left ventricular wall thickness. The left ventricular systolic function is severely decreased. The visually estimated ejection fraction is between 30-35%. Wall Motion Rest Echo Findings The entire apex, the mid anterior, mid inferior, mid anterolateral, mid inferoseptal, mid anteroseptal, and mid inferolateral segments are akinetic. All other scored wall segments showed normal motion. Measurements 2D Linear Measurements IVSd: 1.07 0.6-0.9/0.6-1.0 cm LVIDd: 4.34 3.9-5.3/4.2-5.9 cm LVIDd Index: 2.65 2.4-3.2/2.2-3.1 cm/m2 LVIDs: 2.83 2.0-3.6 cm LVPWd: 1.21 0.7-1.1 cm LV Mass: 216.71 67-162/88-224 g LV Mass Index: 132.14 43-95/49-115 g/m2 LVOT Diam: 1.80 3.0+(-)1.3 cm 2D Systolic Function EF 4C: 35.50 >55% EF 2C: 27.00 >55% EF BiP: 29.10 >55% Mitral Valve MV Pk E: 0.82 MV PK A: 1.21 MV Decel Time: 150.00 E/A: 0.70 E'Lateral: 6.20 E'Medial: 4.24 E/E' Med: 19.30 E/E' Lat: 13.20 PHT: 44.00 MVA PHT: 5.00 Decel Emanuel: 5.46 LVOT LVOT Pk Mehran: 0.60 LVOT Mn Mehran: 0.44 LVOT VTI: 0.10 LVOT Pk Grad: 1.00 LVOT Mn Grad: 1.00 LVOT Diam: 1.80 LVOT Area: 2.54 Diastolic Function MV Pk E: 0.82 MV Pk A: 1.21 E/A: 0.70 E'Medial: 4.24 E/E' Med: 19.30 E' Laterial: 6.20 E/E' Lat: 13.20 Updated in Other Vendor System with Status of Final Tanner Huddleston MD electronically signed on 06/17/2024 1:01:39 PM with status of Final
--- NOTE | 2024-06-17 10:44 | PM.PNCARD ---
Subjective Subjective Date of Service: 06/17/24 Principal diagnosis: New onset cardiomyopathy Interval history: Patient had again epigastric lower retrosternal chest pain worse with deep breathing and feels like sharp pain. Associated with shortness of breath overnight. Heart rate still slightly elevated. Abdominal system is stable at this point time. Review of Systems Constitutional: Reports no additional constitutional complaints Eyes: Reports no additional eye complaints Cardiovascular: Reports chest pain at rest and Reports dyspnea Respiratory: Denies cough, Reports pain on inspiration and Reports dyspnea Gastrointestinal: Reports no additional gastrointestinal complaints Genitourinary: Reports no additional female genitourinary complaints Reports system reviewed and no additional complaints, except as documented Psychiatric: Reports no additional psychiatric complaints Endocrine: Reports no additional endocrine complaints Physical Exam Vital Signs: Last Vital Signs Temp 98.3 F 06/17/24 08:27 Pulse 103 H 06/17/24 08:27 Resp 18 06/17/24 08:27 BP 122/75 06/17/24 08:27 Pulse Ox 97 06/17/24 08:27 O2 Del Method Room Air 06/17/24 08:27 BMI result Body Mass Index 25.4 Const General: cooperative, comfortable, alert, awake and anxious Nutritional Appearance: average body habitus Orientation/consciousness: patient oriented x3 Limitations: no limitations HEENT Head: Yes normocephalic and Yes atraumatic Neck Neck: Yes trachea midline, Yes supple and Yes no JVD Resp Effort & Inspection: normal respiratory effort Auscultation: clear to auscultation bilaterally Cardio Jugular venous distension: no JVD Rate: tachycardic Rhythm: regular rhythm Heart sounds: S1 normal heart sound present, S2 normal heart sound present, no click, no gallops, no murmurs and no rubs GI Auscultation: normal bowel sounds Skin General skin exam: no rashes or lesions noted Neuro General: patient oriented x3 and no focal motor deficits Extrem General: Yes no clubbing, cyanosis or edema Objective Labs and Meds 06/15/24 06:22 06/17/24 06:18 Lab results: Laboratory Results - last 24 hr 06/16/24 06/16/24 06/16/24 10:52 16:09 21:01 Hold Purple Top Sodium Potassium Chloride Carbon Dioxide Anion Gap BUN Creatinine Estim Creat Clear Calc Estimated GFR POC Glucose 201 H 136 H 226 H Random Glucose Calcium 06/17/24 06/17/24 06:18 07:57 Hold Purple Top SEE NOTE Sodium 141 Potassium 3.3 Chloride 113 H Carbon Dioxide 19 L Anion Gap 12 BUN 19 H Creatinine 0.76 Estim Creat Clear Calc 70.4 Estimated GFR > 60 POC Glucose 161 H Random Glucose 183 H Calcium 8.4 Progress Note: A&P Assessment and plan (1) Cardiomyopathy: Status: Acute Assessment and Plan: Cardiomyopathy process highly suggestive of stress-induced cardiomyopathy. Although she continues to have chest pain or shortness of breath but no signs of congestive heart failure. Clinically euvolemic and well compensated with lung being clear. Heart rate still elevated which concerns me. Will follow-up limited echocardiogram. If it shows persistent significant LV systolic dysfunction more regional wall motion abnormality will transfer to [facility] for cardiac catheterization as a GI system is stable at this point in time. Continue to maximize metoprolol therapy. Continue aspirin and statin therapy. Will follow with you Time Spent With Patient Time: Total time managing care of this patient today ____ minutes. Progress Note: Quality Stroke Does the patient have a stroke diagnosis?: No Procedures Date of Service Date of Service: 06/17/24
[2024-06-17 11:18] VITALS: BP 113/72; PULSE 100; RESP 18; TEMP 37.2; O2SAT 97
[2024-06-17 12:37] LABS: Glucose, Whole Blood 174 mg/dL (60-115)
--- NOTE | 2024-06-17 13:10 | PM.DS ---
DS: Providers Provider Date of Service: 06/17/24 Date of admission: 06/13/24 13:12 Date of discharge: 06/17/24 Primary care physician: SANKET Desai Consults: 06/13/24 11:54 Consult to Gastroenterology Routine Consulting Provider: Bc Medellin Reason for consultation: rectal bleeding 06/13/24 13:12 Consult to Cardiology Routine Consulting Provider: [facility] Reason for consultation: chest pain, ekg changes; preop eval Has provider been notified: No Attending physician on discharge: Iain Croft Discharging clinician: Edyta Camacho DS: Diagnosis Discharge Diagnosis (1) Cardiomyopathy: Status: Acute DS: Summary Hospital Course Hospital Course: From H&P on the day of admission This is a 58-year-old female with history of type 2 diabetes who presents to the emergency department with nausea, vomiting, diarrhea and rectal bleeding. Patient states her symptoms began yesterday around 17:00. She began having lower crampy abdominal pain with associated nausea and vomiting followed by bright red blood per rectum mixed with stool. She had multiple episodes of bloody diarrhea, which she describes as mucus consistency. She has had multiple episodes of vomiting as well. She denies any recent travel or recent sick contacts. She was admitted 1 year ago to the hospital with colitis but has not had any rectal bleeding since that admission. In the emergency department she received IV ceftriaxone multiple doses of Toradol and Protonix. CT scan with IV contrast showed no acute intra-abdominal pathology. Lab work was significant for leukocytosis of 14,000. Patient was also noted to be tachycardic, EKG initially revealed sinus tachycardia. Patient reported chest pain described as chest pressure across the front of her chest, somewhat reproducible on exam. Repeat EKG obtained showed new T-wave inversions in leads V3-and V6. Troponin was obtained and was 347.4. She will be admitted for further management of rectal bleeding and chest pain. Takotsubo cardiomyopathy New EKG changes initially echo showing takotsubo with EF of 30-35% Initial troponin 347.4, 378.6 Unable to give aspirin due to above rectal bleeding for now Cardiology consult> remains tachycardic, will up-titrate BB for better HR control, 50bid high-dose statin repeat limited echo with persistent LV dysfunction and regional wall motion abnormalities in multiple territories Plan to transfer to [facility] for cardiac catheterization Colitis, likely ischemic CT scan with no acute intra-abdominal pathology although colon not well characterized on CT imaging Lactic acid normal Empiric antibiotics, ceftriaxone and Flagyl -Likely 1 week diabetic diet Rectal bleeding. Resolved no hemorrhoids per ED exam possible colitis as above H/H stable at this time Follow CBC Time Attestation Discharge Coordination Time (in mins): 35 Quality: Safe Use of Opioids Does Pt have an Active Cancer Diagnosis on the Problem List?: No Quality: Stroke Does the patient have a stroke diagnosis?: No Physical Exam Vital Signs: Vital Signs: Last Vital Signs Temp 98.9 F 06/17/24 11:18 Pulse 100 06/17/24 11:18 Resp 18 06/17/24 11:18 BP 113/72 06/17/24 11:18 Pulse Ox 97 06/17/24 11:18 O2 Del Method Room Air 06/17/24 11:18 BMI result Body Mass Index 25.4 Const: General: cooperative, comfortable, no acute distress, alert and awake Nutritional Appearance: average body habitus Orientation/consciousness: patient oriented x3 Resp: Effort & Inspection: normal respiratory effort, able to speak in complete sentences, no respiratory distress and no use of accessory muscles Cardio: Jugular venous distension: no JVD Rate: tachycardic GI: Inspection: No distended Palpation (GI): Soft to palpation and nontender Neuro: General: patient oriented x3 and moves all extremities DS: Data Data Completed and Pending Labs on day of discharge: Laboratory Results - last 24 hr 06/16/24 06/16/24 06/17/24 16:09 21:01 06:18 Hold Purple Top SEE NOTE Sodium 141 Potassium 3.3 Chloride 113 H Carbon Dioxide 19 L Anion Gap 12 BUN 19 H Creatinine 0.76 Estim Creat Clear Calc 70.4 Estimated GFR > 60 POC Glucose 136 H 226 H Random Glucose 183 H Calcium 8.4 06/17/24 06/17/24 07:57 11:32 Hold Purple Top Sodium Potassium Chloride Carbon Dioxide Anion Gap BUN Creatinine Estim Creat Clear Calc Estimated GFR POC Glucose 161 H 174 H Random Glucose Calcium Preliminary micro results at discharge 06/13/24 08:44 Blood Culture - Preliminary Blood - Venous No growth after 48 hours. 06/13/24 08:44 Blood Culture - Preliminary Blood - Venous No growth after 48 hours. Discharge Plan Discharge Anticipated Discharge Date/Time: 06/17/24 13:31 Patient Disposition: Xfer Acute [facility] Discharge Diagnosis: Cardiomyopathy Colitis Referrals: Delma Kimbrough PA [Primary Care Provider] - 1 Week Discharge Medications: New ceftriaxone 1 gram Recon Soln 1 g IV Q24H Qty: 1 0RF atorvastatin 80 mg Tablet 80 mg PO BEDTIME Qty: 1 0RF metoprolol tartrate 50 mg Tablet 50 mg PO BID Qty: 1 0RF Protocol: Hold for SBP/HR < HOLD for SBP < : 90 HOLD for HR < : 60 metronidazole in NaCl (iso-os) 500 mg/100 mL Piggyback 500 mg IV Q8H Qty: 2400 0RF Continued omeprazole 40 mg capsule,delayed release(DR/EC) 40 mg PO DAILY@0630 albuterol sulfate 90 mcg/actuation HFA aerosol inhaler 2 puff INHALATION QID PRN (Reason: Wheezing) levothyroxine 112 mcg tablet 112 mcg PO DAILY@0600 multivitamin Tablet 1 tab PO DAILY Held estradiol 1 mg tablet 1 mg PO DAILY Hold Instructions: Inpatient Jardiance 25 mg tablet 25 mg PO DAILY Hold Instructions: Inpatient aspirin 81 mg Tablet,Delayed Release (Dr/Ec) 81 mg PO DAILY Hold Instructions: was on hold for rectal bleeding insulin glargine U-300 conc [Toujeo SoloStar U-300 Insulin] 300 unit/mL (1.5 mL) Insulin Pen 15 unit SUBCUT DAILY Hold Instructions: Inpatient Mounjaro 5 mg/0.5 mL Pen Injector 5 mg SUBCUT MO@0900 Hold Instructions: Inpatient Discontinued atorvastatin 10 mg tablet 10 mg PO BEDTIME losartan 50 mg Tablet 50 mg PO DAILY Discharge Orders: Discharge Order (Routine); Ordered 06/17/24 Ordered By: Edyta Camacho Activity on Discharge: As tolerated Stand Alone Forms: Patient Portal Discharge page Print Language: [place] Care Plan Goals: See below Health Concerns: Colitis cardiomyopathy Plan of Treatment: Plan for 7 days of antibiotics for colitis, no further rectal bleeding On metoprolol, high-dose statin for cardiomyopathy. Plan transfer to tertiary care facility for cardiac catheterization Assessment: See discharge summary
[2024-06-17] MEDS: cefTRIAXone sodium 1 GM in 0.9 % Sodium Chloride 50 ML IV (13:15)
--- NOTE | 2024-06-17 13:42 | MHC.CM.PN ---
Patient will be transferred to [facility].
[2024-06-17] MEDS: LORazepam 0.5 MG TABLET 0.25 MG PO (14:23)
[2024-06-17 15:24] VITALS: BP 113/72; PULSE 107; RESP 18; TEMP 36.3; O2SAT 98
[2024-06-17 16:18] LABS: Glucose, Whole Blood 219 mg/dL (60-115)
[2024-06-17 19:19] VITALS: BP 122/75; PULSE 111; RESP 18; TEMP 36.2; O2SAT 98
--- NOTE | 2024-06-17 22:36 | PC.NURSE ---
Assumed care over patient @ 1900. Pt AOx4, on RA, resting comfortably in the recliner. Flushed R 20g IV, asymtomatic and flushed well. EMS arrived to transfer patient at 2029. Verbal report given to transfer personnel. Day RN previously called [facility] and gave report. IV left in for transfer. Pt took belongings with her and EMS took patient out via stretcher.
--- NOTE | 2024-06-26 05:52 | PC.NURSE ---
Addendum entered by Pedro Garcia RN 07/07/24 06:04: LATE ENTRY 07/07/24- Pain scale clarification--On night of 06/16/24. TW administered Diluadid 0.25mg IVpush per patient request for pain 02/15. Original Note: LATE ENTRY 06/26/24- Pain scale clarification--On night of 06/16/24. TW administered Diluadid 0.25mg IVpush to patient complaining of pain 6-7.
== END 2024-06-17 21:00 | disposition short-term general hospital (02) | DRG 246 ==
LOC: HO.ED 07:39 → HO.EDOVER 13:33 → HO.IMC 06-14 12:04
PROVIDERS: Internal Medicine; Nurse Practitioner Acute Care; Admitting Provider Physician Assistant Medical; Emergency Provider Emergency Medicine; PCP Physician Assistant Medical; Visit Provider Physician Assistant Medical
DX: K55.9 Vascular disorder of intestine, unspecified (principal); I51.81 Takotsubo syndrome; E03.9 Hypothyroidism, unspecified; K59.00 Constipation, unspecified; E86.0 Dehydration; E11.9 Type 2 diabetes mellitus without complications; F41.9 Anxiety disorder, unspecified; R00.0 Tachycardia, unspecified; K62.5 Hemorrhage of anus and rectum; Z79.82 Long term (current) use of aspirin; Z87.891 Personal history of nicotine dependence; Z79.890 Hormone replacement therapy; Z79.899 Other long term (current) drug therapy
CPT/HCPCS: 36415; 74177; 80048; 80053; 80061; 81001; 81003; 82272; 82947; 83036; 83605; 83690; 83735; 83880; 84443; 84484; 85014; 85018; 85025; 85027; 85610; 86850; 86900; 86901; 87040; 93005; 93306; 93308; 99285; J0696; J0737; J1171; J1836; J1885; J2405; J2470; J7120; Q9957; Q9967

== ENCOUNTER 2024-06-13 13:12 | Outpatient (BNV) | payer OTHER, SELFPAY | END 2024-06-14 07:00 | PROVIDERS: Admitting Provider Physician Assistant Medical; Emergency Provider Emergency Medicine; PCP Physician Assistant Medical; Visit Provider Internal Medicine Cardiovascular Disease | DX: I51.81 Takotsubo syndrome (principal); R93.1 Abnormal findings on diagnostic imaging of heart and coronary circulation | CPT/HCPCS: 93306 ==

== ENCOUNTER 2024-06-13 13:12 | Outpatient (BNV) | payer OTHER, SELFPAY | END 2024-06-17 10:00 | PROVIDERS: Admitting Provider Physician Assistant Medical; Emergency Provider Emergency Medicine; PCP Physician Assistant Medical; Visit Provider Internal Medicine Cardiovascular Disease | DX: I51.81 Takotsubo syndrome (principal) | CPT/HCPCS: 93308 ==

== ENCOUNTER → 2024-06-13 13:12 | Outpatient (BNV) | payer OTHER, SELFPAY | PROVIDERS: Admitting Provider Physician Assistant Medical; Emergency Provider Emergency Medicine; PCP Physician Assistant Medical; Visit Provider Internal Medicine Cardiovascular Disease | DX: R79.89 Other specified abnormal findings of blood chemistry (principal) | CPT/HCPCS: 99222; 99233 ==

== ENCOUNTER → 2024-06-13 13:12 | Outpatient (BNV) | payer OTHER, SELFPAY | PROVIDERS: Admitting Provider Physician Assistant Medical; Emergency Provider Emergency Medicine; PCP Physician Assistant Medical; Visit Provider Internal Medicine Gastroenterology | DX: K52.9 Noninfective gastroenteritis and colitis, unspecified (principal) | CPT/HCPCS: 99223; 99232 ==

== ENCOUNTER → 2024-06-13 13:12 | Outpatient (BNV) | payer OTHER, SELFPAY | PROVIDERS: Admitting Provider Physician Assistant Medical; Emergency Provider Emergency Medicine; PCP Physician Assistant Medical; Visit Provider Physician Assistant Medical | DX: I42.9 Cardiomyopathy, unspecified (principal) | CPT/HCPCS: 99222; 99232; 99239 ==